=== PATIENT | female | born 1980 | race Caucasian/White ===

== ENCOUNTER 2017-07-01 13:35 | Emergency (ER) | payer OTHER, BC, SELFPAY | END 2017-07-01 15:54 | disposition home or self-care (01) | PROVIDERS: Emergency Provider Nurse Practitioner; Family Provider Internal Medicine Adolescent Medicine; Visit Provider Nurse Practitioner | DX: J06.9 Acute upper respiratory infection, unspecified (principal); Z91.040 Latex allergy status | CPT/HCPCS: 87804; 99201 ==

== ENCOUNTER → 2019-05-28 16:02 | Outpatient (CLI) | payer OTHER, BC, SELFPAY ==
[2019-05-28 16:49] LABS: Basophils # 0.1 K/mm3 (0-0.2); Basophils % 0.7 % (0.1-2.0); Eosinophils # 0.1 K/mm3 (0.0-0.4); Eosinophils % 1.1 % (0.1-12.0); Hematocrit 37.7 % (37.0-47.0); Hemoglobin 12.1 g/dL (12.2-16.2); Lymphocytes # 2.6 K/mm3 (0.7-4.5); Lymphocytes % 31.9 % (10-50); Mean Corpuscular HGB Conc 32.1 g/dL (31.8-35.4); Mean Corpuscular Hemoglobin 31.2 pg (27.0-31.2); Mean Corpuscular Volume 97.4 fl (81-99); Mean Platelet Volume 11.2 fl (7.4-10.4); Monocytes # 0.4 K/mm3 (0.1-1.0); Monocytes % 4.8 % (1.7-9.3); Neutrophils # 4.9 K/mm3 (1.8-7.8); Neutrophils % 61.6 % (37.0-80.0); Platelet Count 189 K/mm3 (142-424); Red Blood Count 3.87 M/mm3 (4.20-5.40); Red Cell Distribution Width 13.8 % (11.5-17.5)
[2019-05-28 18:24] LABS: Alanine Aminotransferase 11 U/L (12-78); Alkaline Phosphatase 54 U/L (46-116); Anion Gap 10.8 mEq/L (5-15); Aspartate Amino Transferase 11 U/L (15-37); Bilirubin,Total 0.5 mg/dL (0.2-1.0); Blood Urea Nitrogen 25 mg/dL (7-18); Calcium 8.9 mg/dL (8.5-10.1); Carbon Dioxide 29 mmol/L (21.0-32.0); Chloride 103 mmol/L (98-107); Creatinine,Serum 0.85 mg/dL (0.55-1.02); Estimated Glomerular Filt Rate 74 ml/min (>60); GFR (African American) 90 ML/MIN (>60); Glucose 79 mg/dL (74-106); Potassium 3.8 mmoL/L (3.5-5.1); Sodium 139 mmol/L (136-145); T4 (Thyroxine) 11.8 ug/dl (4.7-13.3); Thyroid Stimulating Hormone 0.84 uIU/ml (0.358-3.740); Triiodothryronine (T3) Uptake 34 % (31-39)
[2019-05-31 06:39] LABS: Vitamin B12 356 pg/mL (232-1245)
== END ==
PROVIDERS: Visit Provider Internal Medicine Adolescent Medicine
DX: R68.89 Other general symptoms and signs (principal); L65.9 Nonscarring hair loss, unspecified
CPT/HCPCS: 36415; 80053; 82607; 82652; 84436; 84443; 84479; 85025

== ENCOUNTER 2019-06-29 13:31 | Outpatient (RCR) | payer OTHER, BC, SELFPAY | END 2019-06-29 14:00 | disposition home or self-care (01) | LOC: OT 13:31 | PROVIDERS: Visit Provider Orthopaedic Surgery | DX: M65.4 Radial styloid tenosynovitis [de Quervain] (principal) | CPT/HCPCS: 97763 ==

== ENCOUNTER 2019-08-25 15:00 | Outpatient (RCR) | payer OTHER, BC, SELFPAY ==
--- NOTE | 2019-06-08 15:30 | HMH.PTOPWND ---
Rehab Outpt Wound Evaluation Rehab OP Wound Evaluation Start: 06/08/19 15:07 Freq: Status: Active Protocol: Document 06/08/19 15:24 PHOKADI (Rec: 06/08/19 15:30 PHORNE [id number]) Electronically Signed By Primo Jin, PT 06/08/19 15:24 Subjective/History History History Pt is 39 yowf who presents with c/o B LE edema x > 15 yrs with gradually worsening symptoms. She reports edema does not decrease with elevation and pain/discomfort is increased at night after prolonged dependent positionign and standing. She also reports increased tenderness in the anterior lower leg B. She has no edema at all in the feet B, also feels cuffing around the ankles. She has PMH of tonsilectomy and . Subjective Subjective Pain 3/10 most of the time. Lymphedema Eval Classification of Lymphedema Secondary Lymphedema Yes: Likely Lipidema Stemmer's sign Stemmer's Sign no Stage of Lymphedema Lymphedema stages Stage 0 (subjective c/o heaviness and aching) Skin Changes Dry Skin Yes Discoloration of Skin Yes Other Changes Yes Pain Scale Pain Scale (0-10) 3 Affected Extremities Areas Affected by Lymphedema/Edema Right Upper Extremity,Left Upper Extremity,Right Lower Extremity,Left Lower Extremity Manual Lymphatic Drainage Treatment Area MLD Treatment Area Right Upper Extremity,Left Upper Extremity,Right Lower Extremity,Left Lower Extremity Wound Problems/Impairments Impairments Problems/Impairmments Palpation Tenderness,Impaired Standing,Impaired Recreational Activities,Increased Edema, Subjective C/O Pain,Impaired Self Care/Self Management Prognosis Rehab Potential Good Clinical Impression Consistent with Diagnosis Yes Consistent with signs and symptoms c/w Lipidema Short Term Goals Number of Weeks 4 Decreased Palpation Tenderness Yes: to min Decrease Subjective C/O Pain Yes: 2/10 Patient to be Ind w/ [place] Yes Compression Garments Patient to Understand
--- NOTE | 2019-07-20 15:49 | HMH.RHREAS ---
Rehab Reassessment Rehab OP Re-assessment Start: 07/20/19 15:45 Freq: Status: Active Protocol: Document 07/20/19 15:46 LAWANDA (Rec: 07/20/19 15:49 LAWANDA [id number]) Electronically Signed By Primo Jin, PT 07/20/19 15:46 Rehab Re-assessment Subjective Subjective Pt reports less pain overall but B LE continue to feel heavy. Objective Objective Notes B Lower leg medially showing small nodules in the tissue with light palpation, but some less fibrotic nature of the edema in B LE. Assessment Progress Assessment Progressing as Expected Assessment Notes Pain is decreasing, edema remains in B LE. Patient goals met ST,2,3,[address] LT,2,3,4,5,6 Revised Goals none Plan Plan Continue per initial POC Frequency of Therapy 2 x/wk Duration of therapy 8 wks Time and Billing Re-Eval Time 15 Re-Eval Billing Units 1 PHYSICIAN CERTIFICATION: I certify the specified therapy services for [facility] are required, authorized, and reviewed every 30 days.
--- NOTE | 2019-08-25 15:28 | HMH.RHREAS ---
Rehab Reassessment Rehab OP Re-assessment Start: 07/20/19 15:45 Freq: Status: Active Protocol: Document 08/25/19 15:26 LAWANDA (Rec: 08/25/19 15:28 LAWANDA [id number]) Electronically Signed By Primo Jin, PT 08/25/19 15:26 Rehab Re-assessment Subjective Subjective Pt reports no obvious changes in size, but feel less sore and painful. Objective Objective Notes B Lower leg medially showing small nodules in the tissue with light palpation (grains of rice in size), but continuedcless fibrotic nature of the edema in B LE. Pain 2/ 10 now on average. Assessment Progress Assessment Progressing as Expected Assessment Notes Pt with much less pain in B LE now and following all HEP well. Patient goals met ST,2,3,4,5 Goals Not Met LT,2,3,4,5,6 Revised Goals none Plan Plan Continue per initial POC Frequency of Therapy 2 x/wk Duration of therapy 8 wks Time and Billing Re-Eval Time 15 Re-Eval Billing Units 1 PHYSICIAN CERTIFICATION: I certify the specified therapy services for [facility] are required, authorized, and reviewed every 30 days.
== END 2019-08-25 15:05 | disposition home or self-care (01) ==
LOC: PT 15:00
PROVIDERS: Visit Provider Internal Medicine Adolescent Medicine
DX: I89.0 Lymphedema, not elsewhere classified (principal)
CPT/HCPCS: 97140; 97162; 97164; 97760

== ENCOUNTER → 2019-08-26 14:38 | Outpatient (CLI) | payer OTHER, BC, SELFPAY ==
--- NOTE | 2019-08-26 14:38 | US_ITS ---
PROCEDURE: US EXTREMITY LT LIMITED CLINICAL INDICATION: palpable nodule on upper left leg and vulva COMPARISON: No exams were available for comparison FINDINGS: Images targeted to the palpable abnormality demonstrate a focal hypo echoic nodule with increased color Doppler blood flow in the immediate subcutaneous tissues in the labial region. This measures up to 7.2 x 3.3 x 4.2 millimeters. Sebaceous cyst is favored. Inflammatory or neoplastic focus would also be in the differential diagnosis. IMPRESSION: Solid hyperemic nodule correlates with the clinical abnormality. Dictated by: Meño Villagran 08/26/2019 15:24 Electronically signed by Meño Villagran in [place] 08/26/2019 15:24
== END ==
PROVIDERS: PCP Internal Medicine Adolescent Medicine; Visit Provider Nurse Practitioner Obstetrics & Gynecology
DX: N76.4 Abscess of vulva (principal)
CPT/HCPCS: 76882

== ENCOUNTER → 2019-09-22 12:13 | Outpatient (CLI) | payer OTHER, BC, SELFPAY ==
[2019-09-22 13:06] LABS: Alanine Aminotransferase 12 U/L (12-78); Albumin Level 4.6 g/dl (3.5-5.0); Albumin/Globulin Ratio 1.3 (1.1-1.8); Alkaline Phosphatase 57 U/L (38-126); Amylase 48 U/L (30-110); Anion Gap 13.1 mEq/L (5-15); Aspartate Amino Transferase 24 U/L (14-36); Bilirubin,Total 0.5 mg/dl (0.2-1.3); Blood Urea Nitrogen 15 mg/dl (7-17); Calcium 9.3 mg/dl (8.4-10.2); Carbon Dioxide 24 mmol/L (22.0-30.0); Chloride 102 mmol/L (98-107); Creatine Kinase 37 U/L (30-135); Estimated Glomerular Filt Rate 137 ml/min (>60); GFR (African American) 165 ML/MIN (>60); Globulin 3.6 g/dL (1.3-3.2); Glucose 94 mg/dl (74-100); Lipase 95 U/L (23-300); Potassium 4.1 mmoL/L (3.5-5.1); Sodium 135 mmol/L (136-145); Total Protein,Serum 8.2 g/dl (6.3-8.2)
[2019-09-22 13:17] LABS: CKMB Relative Index 0.8 U/L (0-4.0); Creatine Kinase MB 0.3 ng/ml (0.0-2.03)
[2019-09-22 13:19] LABS: Troponin I < 0.01 ng/ml (0.00-0.034)
[2019-09-22 13:30] LABS: Basophils % 0.2 % (0.1-2.0); Eosinophils % 0.3 % (0.1-12.0); Hematocrit 37.3 % (37.0-47.0); Hemoglobin 12.3 g/dL (12.2-16.2); Lymphocytes # 1.4 K/mm3 (0.7-4.5); Lymphocytes % 12.5 % (10-50); Mean Corpuscular Hemoglobin 31.9 pg (27.0-31.2); Mean Corpuscular Volume 96.7 fl (81-99); Mean Platelet Volume 10.6 fl (7.4-10.4); Monocytes # 0.4 K/mm3 (0.1-1.0); Monocytes % 3.6 % (1.7-9.3); Neutrophils % 83.4 % (37.0-80.0); Platelet Count 169 K/mm3 (142-424); Red Blood Count 3.85 M/mm3 (4.20-5.40); Red Cell Distribution Width 13.6 % (11.5-17.5); White Blood Count 10.8 K/mm3 (4.8-10.8)
== END ==
PROVIDERS: Visit Provider Internal Medicine Adolescent Medicine
DX: R00.2 Palpitations (principal); R10.13 Epigastric pain
CPT/HCPCS: 36415; 80053; 82150; 82550; 82553; 83690; 84484; 85025

== ENCOUNTER → 2019-10-04 15:32 | Outpatient (CLI) | payer OTHER, BC, SELFPAY ==
--- NOTE | 2019-10-04 | US_ITS ---
PROCEDURE: US BREAST LT COMPLETE CLINICAL INDICATION: Palpable abnormality left breast painful COMPARISON: mammogram 10/04/2019 FINDINGS: Sonographic images targeted to the palpable abnormality demonstrates a 1.6 x 1.9 x 0.84 centimeter thick walled septated cyst corresponding to the palpable and mammographic abnormality. A complicated cyst should be considered 1st. There are at least 3 separate lymph nodes in the left axilla largest measuring up to 1.8 centimeters with fatty hilum. IMPRESSION: BI-RADS category 3 probably benign finding. Six-month follow-up exam is recommended. Dictated by: Meño Villagran 10/04/2019 17:45 Electronically signed by Meño Villagran in [facility] 10/04/2019 17:45
--- NOTE | 2019-10-04 15:32 | MM_ITS ---
PROCEDURE: MM DIG MAMM BI DX W/CAD Digital Breast Tomosynthesis Included CLINICAL INDICATION: left breast nodule, breast tenderness COMPARISON: No exams were available for comparison TECHNIQUE: Standard CC and MLO images and 3D Tomosynthesis was obtained. R2 CAD reviewed. FINDINGS: The breasts are extremely dense. This decreases the sensitivity of mammography. Skin marker was placed to denote the area of palpable abnormality in the upper-outer quadrant of the left breast. There is approximately 1.6 x 2.1 centimeter nodule in the upper outer quadrant of the left breast correlating with the palpable abnormality. Sonography performed 10/04/2019 demonstrated a complicated cystic lesion. There is no other suspicious breast mass or clustered microcalcification to suggest malignancy. A 6 millimeter nodule in the prepectoral region of the left breast is likely a benign lymph node. Lymph nodes are seen projecting over the bilateral pectoral muscles. IMPRESSION: BI-RAD Category: 3 Probably Benign Finding Short Term Follow-up FOLLOW-UP: 6M 6Month Follow-up (A letter has been sent to the patient regarding results of the study.) Dictated by: Meño Villagran 10/04/2019 17:54 Electronically signed by Meño Villagran in [facility] 10/04/2019 17:54
== END ==
PROVIDERS: PCP Internal Medicine Adolescent Medicine; Visit Provider Nurse Practitioner Obstetrics & Gynecology
DX: N63.21 Unspecified lump in the left breast, upper outer quadrant (principal); N64.4 Mastodynia
CPT/HCPCS: 76641; 77062; 77066; G0279

== ENCOUNTER → 2019-12-15 15:02 | Outpatient (CLI) | payer OTHER, BC, SELFPAY ==
[2019-12-15 15:05] LABS: MANUAL DIFFERENTIAL MANUAL DIFFERENTIAL (MANUAL DIFF)
[2019-12-15 15:16] LABS: Basophils % 0.5 % (0.1-2.0); Eosinophils # 0.1 K/mm3 (0.0-0.4); Eosinophils % 1.4 % (0.1-12.0); Hematocrit 36.9 % (37.0-47.0); Hemoglobin 11.9 g/dL (12.2-16.2); Lymphocytes # 1.9 K/mm3 (0.7-4.5); Lymphocytes % 24.8 % (10-50); Mean Corpuscular HGB Conc 32.2 g/dL (31.8-35.4); Mean Corpuscular Hemoglobin 31.6 pg (27.0-31.2); Mean Corpuscular Volume 98.1 fl (81-99); Mean Platelet Volume 10.3 fl (7.4-10.4); Monocytes # 0.3 K/mm3 (0.1-1.0); Monocytes % 4.3 % (1.7-9.3); Neutrophils # 5.3 K/mm3 (1.8-7.8); Platelet Count 157 K/mm3 (142-424); Red Blood Count 3.76 M/mm3 (4.20-5.40); Red Cell Distribution Width 14.6 % (11.5-17.5); White Blood Count 7.7 K/mm3 (4.8-10.8)
[2019-12-15 15:34] LABS: Eosinophils % 1 % (0-3); Lymphocytes % 31 % (10-50); Monocytes % 2 % (2-9); Neutrophils % 66 % (42-76); Platelet Estimate Normal; RBC Morphology Normal; Total Cells Counted 100
[2019-12-15 15:38] LABS: Chloride 105 mmol/L (98-107); Potassium 3.9 mmoL/L (3.5-5.1); Sodium 139 mmol/L (136-145)
[2019-12-15 15:40] LABS: Blood Urea Nitrogen 18 mg/dl (7-17); Estimated Glomerular Filt Rate 111 ml/min (>60); GFR (African American) 134 ML/MIN (>60)
[2019-12-15 15:41] LABS: Alanine Aminotransferase 13 U/L (12-78); Albumin Level 4.2 g/dl (3.5-5.0); Albumin/Globulin Ratio 1.3 (1.1-1.8); Alkaline Phosphatase 55 U/L (38-126); Aspartate Amino Transferase 23 U/L (14-36); Bilirubin,Total 0.4 mg/dl (0.2-1.3); Calcium 9.1 mg/dl (8.4-10.2); Globulin 3.3 g/dL (1.3-3.2); Glucose 100 mg/dl (74-100); Total Protein,Serum 7.5 g/dl (6.3-8.2)
[2019-12-15 20:57] LABS: Anion Gap 12.9 mEq/L (5-15); Carbon Dioxide 25 mmol/L (22.0-30.0)
== END ==
PROVIDERS: Visit Provider Internal Medicine Adolescent Medicine
DX: R19.09 Other intra-abdominal and pelvic swelling, mass and lump (principal); I89.0 Lymphedema, not elsewhere classified
CPT/HCPCS: 36415; 80053; 85007; 85014; 85018; 85048; 85049

== ENCOUNTER → 2019-12-24 09:32 | Outpatient (CLI) | payer OTHER, BC, SELFPAY ==
--- NOTE | 2019-12-24 09:38 | CT_ITS ---
PROCEDURE: CT ABDOMEN PELVIS WO/W CON CLINICAL INDICATION: LT INQUINAL MASS,LYMPHEDEMA OF BOTH LOWER EXTREMITIES Painful left inguinal mass, possible swollen lymph node, history of lymphedema COMPARISON: ABDPELW/O CT ABD PELVIS W/O CONTRAST from 02/11/2014 US EXTREMITY LT LIMITED from 08/26/2019 US BREAST LT COMPLETE from 10/04/2019 TECHNIQUE: IV Contrast: 75ML OPTIRAY 350 Oral Contrast None Axial images obtained with sagittal and coronal reformats. All CT scans at the facility use one or more dose reduction, viz: automated exposure control, ma/kV adjustment per patient size (including targeted exams where dose is matched to indication, i.e. head), or iterative reconstruction technique. FINDINGS: LOWER THORAX: No acute finding ABDOMEN & PELVIS: The liver, spleen, adrenal glands, pancreas, and kidneys have an unremarkable appearance. No renal or ureteral calculi. No intestinal obstruction or free air. No evidence of appendicitis or diverticulitis. There is a 2.5 cm right ovarian cyst. There is heterogeneous lobular density along the anterior aspect of the lower uterine segment which could be due to a fibroid. Pelvic ultrasound may confirm. This area measures approximately 3 cm. A BB is placed in the area of palpable clinical concern located between the left labia and thigh. There is mild thickening of the subcutaneous soft tissues at this area.. There are few scattered small lymph nodes in the inguinal area on the left. No dominant adenopathy. No acute bony findings. IMPRESSION: 1. There is some mild subcutaneous soft tissue thickening along the lateral aspect of the left labia majora which may correspond to the area of palpable concern. This is of uncertain clinical significance. Correlation with direct visualization is suggested. No other abnormalities are evident at this region aside rim a few small lymph nodes more lateral to this area in the inguinal region. No abnormal fluid collection or muscular masses. 2. Suspect fibroid along the lower uterine segment with small right ovarian cyst. Ultrasound may confirm. 3. Otherwise negative Dictated by: Karel Mays MD 12/25/2019 07:05 Electronically signed by Karel Mays MD in [facility] 12/25/2019 07:05
== END ==
PROVIDERS: PCP Internal Medicine Adolescent Medicine; Visit Provider Internal Medicine Adolescent Medicine
DX: R19.09 Other intra-abdominal and pelvic swelling, mass and lump (principal); I89.0 Lymphedema, not elsewhere classified
CPT/HCPCS: 74178; Q9967

== ENCOUNTER → 2020-04-28 11:01 | Outpatient (CLI) | payer OTHER, BC, SELFPAY ==
[2020-04-29 15:23] LABS: Covid-19 Nasal PCR Sendout Lex Not Detected
== END ==
PROVIDERS: PCP Internal Medicine Adolescent Medicine; Visit Provider Internal Medicine Adolescent Medicine
DX: Z03.818 Encounter for observation for suspected exposure to other biological agents ruled out (principal)
CPT/HCPCS: U0004

== ENCOUNTER 2020-06-18 19:53 | Emergency (ER) | payer OTHER, BC, SELFPAY ==
[2020-06-18 19:59] VITALS: BP 133/74; PULSE 61; RESP 18; O2SAT 100; BMI 27.8
--- NOTE | 2020-06-18 20:04 | XR_ITS ---
PROCEDURE: XR CHEST 2V CLINICAL HISTORY: COUGH Cough and fever COMPARISON: No exams were available for comparison FINDINGS: The cardiomediastinal silhouette and pulmonary vascularity are within normal limits. The lungs are clear without infiltrates, suspicious nodules, or pleural effusions. There is a calcified granuloma in the right lung base. No acute bony findings. IMPRESSION: No acute findings. Dictated by: Karel Mays MD 06/19/2020 05:29 Karel Mays MD in [facility] 06/19/2020 05:29
--- NOTE | 2020-06-18 20:06 | HMH.EDUTC ---
[facility] [place]ression: Bronchitis, Pleurisy Disposition: Home, Self-Care Condition on Discharge: Good Instructions: Acute Bronchitis, DI for Pleurisy, Sore Throat Additional Instructions: ? Start antibiotic today. Be sure to complete entire prescription even if feeling better ? Monitor temp. Tylenol every 4 hours as needed and / or ibuprofen every 6 hours as needed ( As long as your primary care physician has told you that it ok to take both. For fever/aches/pains ER if no less than 101 despite Tylenol or Motrin ? Humidifier/vaporizer or hot steamy shower *Start steroid today. Helps with inflammation therefore, cough and wheezing. Follow directions on the package. Reviewed side effects. Patient reports taking them before. Follow up IMMEDIATELY for new or worsening of symptoms OR no noticeable improvement over the next 48-72 hours. 911 immediately for any life threatening symptoms such as chest pain or difficulty breathing You were tested for today for COVID19 Prescriptions: methylPREDNISolone [Medrol 4mg tab] 4 mg PO DIRECTED #21 tab Transmission Status: Pending to [facility] Azithromycin [Z-Damián 250mg Tab] 250 mg PO DIRECTED #6 tab Transmission Status: Pending to [facility] Referrals: Chin Guajardo MD [Primary Care Provider] - As needed (Follow up immediately if no improvement) Forms: Work/School Release Time of Disposition: 20:54 Medical Decision Making - Angel Inquiry Pt receiving controlled substance: No Angel was queried for this patient: No Vital Signs: 06/18/20 19:59 Pulse Rate [Radial] 61 Respiratory Rate 18 Blood Pressure [Right Arm] 133/74 Blood Pressure Mean [Right Arm] 93 Blood Pressure Source [Right Arm] Automatic Cuff Blood Pressure Position [Right Arm] Sitting 02 Sat by Pulse Oximetry 100 Oxygen Delivery Method Room Air - Lab Data Lab results reviewed: Yes: I reviewed the patient's lab results. Lab Results 06/18/20 20:06: Influenza Type A Ag Negative, Influenza Type B Ag Negative 06/18/20 20:06: Strep Scn Rapid Clinic Negative Orders (Tests/Meds): ED MEDICATIONS Discontinued Medications Generic Name Dose Route Start Last Admin Trade Name Freq PRN Reason Stop Dose Admin Azithromycin 500 mg 06/18/20 20:47 Azithromycin 250mg Tablet PO 06/18/20 20:48 ONCE ONE Protocol Prednisone 10 mg 06/18/20 20:47 Prednisone 20mg Tab PO 06/18/20 20:48 ONCE ONE ORDERS Category Date Time Status CXR 2 view (NOT portable) [XR chest 2V] Stat Exams 06/18/20 20:04 Taken Full Resp Panel w/COVID ([facility]) Routine Lab 06/18/20 20:05 Received Strep Screen Confirmation Stat Micro 06/18/20 20:06 Received - Radiology Data #1 Image(s): Chest Image Reviewed: Yes I reviewed the patient's radiology image ? bronchitis Medical Decision Narrative: Discussed with patient that we could transfer her to the ED for further evaluation and examination but she declined State that she is not having any chest pain, denies SOA and denies history of DVT States that she will try medication and if she gets worse or starts having chest pain she will return to the ED for further treatment and evaluation [facility] [place] - General Stated complaint: Sore Throat;Pain in chest when taking deep breaths Time Seen by Provider: 06/18/20 20:06 Mode of Arrival: Ambulatory Source of Information: Patient Limitations: No Limitations Description of Symptoms (Recalled from Triage Doc. by RN): sore throat, SOB, pain with inspiration HEENT Symptoms (Recalled from RN notes): Yes Resp Symptoms (Recalled from RN notes): Yes Skin Symptoms (Recalled from RN notes): No MS Symptoms (Recalled from RN notes): No Functional Status (Recalled from RN notes): wnl - History of Present Illness Provider Complaint: Patient states that she hasnt been feeling well today States that around 10am this morning she noticed she wasnt feeling well States that she was feeli
[2020-06-18 20:29] LABS: Adenovirus,PCR Not Detected (NotDetected); Bordetella Pertussis Not Detected (NotDetected); Chlamydophila Pneumoniae, PCR Not Detected (NotDetected); Coronavirus 19, PCR Not Detected (NotDetected); Coronavirus 229E Not Detected (NotDetected); Coronavirus NL63 Not Detected (NotDetected); Coronavirus OC43 Not Detected (NotDetected); Coronovirus HKU1,PCR Not Detected (NotDetected); Human Metapneumovirus Not Detected (NotDetected); Influenza A, PCR Not Detected (NotDetected); Influenza AH1, 2009 Not Detected (NotDetected); Influenza AH1, PCR Not Detected (NotDetected); Influenza AH3,PCR Not Detected (NotDetected); Influenza B, PCR Not Detected (NotDetected); Mycoplasma Pneumoniae, PCR Not Detected (NotDetected); Parainfluenza 1, PCR Not Detected (NotDetected); Parainfluenza 2, PCR Not Detected (NotDetected); Parainfluenza 3, PCR Not Detected (NotDetected); Parainfluenza 4, PCR Not Detected (NotDetected); Respiratory Syncytial Virus Not Detected (NotDetected); Rhinovirus/Enterovirus Not Detected (NotDetected)
[2020-06-18 20:44] LABS: UTC Influenza A Antigen Negative (Negative); UTC Strep Screen (Rapid) Negative (Negative)
[2020-06-18 20:45] LABS: UTC Influenza B Antigen Negative (Negative)
[2020-06-18 20:56] VITALS: BP 133/74; PULSE 61; RESP 18; TEMP 36.7; O2SAT 100
== END 2020-06-18 20:57 | disposition home or self-care (01) ==
PROVIDERS: Emergency Provider Nurse Practitioner; PCP Internal Medicine Adolescent Medicine
DX: Z20.828 Contact with and (suspected) exposure to other viral communicable diseases (principal); J20.9 Acute bronchitis, unspecified; R09.1 Pleurisy; Z91.040 Latex allergy status
CPT/HCPCS: 71046; 87581; 87633; 87798; 87804; 87880; 99202

== ENCOUNTER → 2020-06-20 16:42 | Outpatient (CLI) | payer OTHER, BC, SELFPAY ==
[2020-06-20 17:30] LABS: Adenovirus,PCR Not Detected (NotDetected); Bordetella Pertussis Not Detected (NotDetected); Chlamydophila Pneumoniae, PCR Not Detected (NotDetected); Coronavirus 19, PCR Not Detected (NotDetected); Coronavirus 229E Not Detected (NotDetected); Coronavirus NL63 Not Detected (NotDetected); Coronavirus OC43 Not Detected (NotDetected); Coronovirus HKU1,PCR Not Detected (NotDetected); Human Metapneumovirus Not Detected (NotDetected); Influenza A, PCR Not Detected (NotDetected); Influenza AH1, 2009 Not Detected (NotDetected); Influenza AH1, PCR Not Detected (NotDetected); Influenza AH3,PCR Not Detected (NotDetected); Influenza B, PCR Not Detected (NotDetected); Mycoplasma Pneumoniae, PCR Not Detected (NotDetected); Parainfluenza 1, PCR Not Detected (NotDetected); Parainfluenza 2, PCR Not Detected (NotDetected); Parainfluenza 3, PCR Not Detected (NotDetected); Parainfluenza 4, PCR Not Detected (NotDetected); Respiratory Syncytial Virus Not Detected (NotDetected); Rhinovirus/Enterovirus Not Detected (NotDetected)
== END ==
PROVIDERS: PCP Nurse Practitioner Family; Visit Provider Nurse Practitioner Family
DX: R50.9 Fever, unspecified (principal)
CPT/HCPCS: 87581; 87633; 87798

== ENCOUNTER 2020-07-29 12:28 | Emergency (ER) | payer OTHER, BC, SELFPAY ==
[2020-07-29] VITALS (7 sets, daily range): BP systolic 116–134; BP diastolic 47–92; PULSE 51–77; RESP 16; TEMP 36.9; O2SAT 100; BMI 27.4
--- NOTE | 2020-07-29 12:37 | CT_ITS ---
PROCEDURE: CT ABDOMEN PELVIS WO CON CLINICAL INDICATION: abd pain Lower abdominal pain COMPARISON: CT ABDPELW/O CT ABD PELVIS W/O CONTRAST from 02/11/[address] ABDOMEN PELVIS WO/W CON from 12/24/2019 TECHNIQUE: Axial images obtained with sagittal and coronal reformats. All CT scans at the facility use one or more dose reduction, viz: automated exposure control, ma/kV adjustment per patient size (including targeted exams where dose is matched to indication, i.e. head), or iterative reconstruction technique. FINDINGS: LOWER THORAX: No acute finding ABDOMEN & PELVIS: The liver,, spleen, adrenal glands, pancreas, and kidneys have an unremarkable appearance. No renal or ureteral calculi. No hydronephrosis. Subtle low density is present in the central aspect of the spleen nonspecific and not significantly changed There is a mild amount of retained colonic feces. No intestinal obstruction or free air. No evidence of appendicitis. No evidence of diverticulitis. There is a 2.3 cm right ovarian cyst. No pelvic mass or abnormal fluid collection. Multiple unopacified bowel loops in the abdomen or pelvis which could obscure or mimic pathology. If symptoms persist, consider repeat exam with IV and oral contrast.. No acute bony findings. IMPRESSION: No acute finding Dictated by: Karel Mays MD 07/29/2020 13:59 Karel Mays MD in [place] 07/29/2020 13:59
[2020-07-29 12:41] LABS: Microscopic, Urine URINE MICROSCOPIC (MICROSCOPIC)
[2020-07-29 12:43] LABS: Appearance,Urine CLEAR (Clear); Bilirubin,Urine Negative (Negative); Blood, Urine 3+ (Negative); Color,Urine YELLOW (Yellow); Glucose,Urine (UA) Negative (Negative); Ketones,Urine Negative (Negative); Leukocyte Esterase,Urine Negative (Negative); Nitrate,Urine Negative (Negative); PH,Urine 5.5 (5.0-8.5); Protein,Urine Negative (Negative); Specific Gravity, Urine >= 1.030 (1.005-1.030); Urobilinogen,Urine 0.2 EU/dl (0.2)
[2020-07-29 12:50] LABS: Urine Pregnancy, HCG Qual. Negative (Negative)
[2020-07-29 12:51] LABS: RBC,Urine TNTC #/hpf (0-3)
[2020-07-29 13:01] LABS: Basophils % 0.6 % (0.1-2.0); Eosinophils # 0.1 K/mm3 (0.0-0.4); Eosinophils % 1.3 % (0.1-12.0); Hematocrit 40.4 % (37.0-47.0); Hemoglobin 13.1 g/dL (12.2-16.2); Lymphocytes # 1.8 K/mm3 (0.7-4.5); Lymphocytes % 27.2 % (10-50); Mean Corpuscular HGB Conc 32.3 g/dL (31.8-35.4); Mean Platelet Volume 10.9 fl (7.4-10.4); Monocytes # 0.3 K/mm3 (0.1-1.0); Monocytes % 4.8 % (1.7-9.3); Neutrophils # 4.3 K/mm3 (1.8-7.8); Platelet Count 180 K/mm3 (142-424); Red Blood Count 4.21 M/mm3 (4.20-5.40); Red Cell Distribution Width 14.4 % (11.5-17.5); White Blood Count 6.4 K/mm3 (4.8-10.8)
--- NOTE | 2020-07-29 13:03 | HMH.EDGENADL ---
ED Disposition Clinical Impression: Abdominal pain Qualifiers: Abdominal location: periumbilical Qualified Code(s): R10.33 - Periumbilical pain Disposition: Home, Self-Care Condition on Discharge: Good Instructions: DI for Acute Abdominal Pain Additional Instructions: Additional instructions for ABDOMINAL PAIN: See your physician as soon as possible for further evaluation. Return immediately if worsening abdominal pain, vomiting, shortness of breath, fever, vomiting of blood or abdominal distention. Referrals: Chin Guajardo MD [Primary Care Provider] - - Critical Care Critical Care Time: No Attestation: On 07/29/20, the high probability of a clinically significant, sudden or life threatening deterioration of the following system(s) required my full and direct attention, intervention and personal management. The time I documented below is in addition to time spent performing reported procedures but includes the following listed in this critical care notation. Medical Decision Making - Angel Inquiry Pt receiving controlled substance: No Vital Signs: 07/29/20 12:33 07/29/20 13:07 07/29/20 13:38 Temperature 98.5 F Temperature Source Oral Pulse Rate [Right Radial] 77 65 57 L Respiratory Rate 16 Blood Pressure [Right Arm] 134/60 116/47 L 126/69 Blood Pressure Mean [Right Arm] 84 70 88 Blood Pressure Source [Right Arm] Automatic Cuff Automatic Cuff Automatic Cuff Blood Pressure Position [Right Arm] Sitting Sitting Sitting 02 Sat by Pulse Oximetry 100 100 100 Oxygen Delivery Method Room Air Room Air Room Air 07/29/20 14:14 07/29/20 14:31 07/29/20 15:08 Temperature Temperature Source Pulse Rate [Right Radial] 60 55 L 51 L Respiratory Rate Blood Pressure [Right Arm] 119/74 119/92 H 129/72 Blood Pressure Mean [Right Arm] 89 101 91 Blood Pressure Source [Right Arm] Automatic Cuff Automatic Cuff Automatic Cuff Blood Pressure Position [Right Arm] Sitting Sitting Sitting 02 Sat by Pulse Oximetry 100 100 100 Oxygen Delivery Method Room Air Room Air Room Air - Lab Data Lab Results 07/29/20 12:35: Urine Color Yellow, Urine Appearance Clear, Urine pH 5.5, Ur Specific [place] >= 1.030, Urine Protein Negative, Urine Glucose (UA) Negative, Urine Ketones Negative, Urine Blood 3+, Urine Nitrate Negative, Urine Bilirubin Negative, Urine Urobilinogen 0.2, Ur Leukocyte Esterase Negative, Urine RBC Tntc, Urine WBC None, Ur Squamous Epith Cells 10-20, Urine Bacteria None 07/29/20 12:36: Urine HCG, Qual Negative 07/29/20 12:45: WBC 6.4, RBC 4.21, Hgb 13.1, Hct 40.4, MCV 96.0, MCH 31.0, MCHC 32.3, RDW 14.4, Plt Count 180, MPV 10.9 H, Neut % (Auto) 66.0, Lymph % (Auto) 27.2, [place] % (Auto) 4.8, Eos % (Auto) 1.3, Baso % (Auto) 0.6, Neut # (Auto) 4.3, Lymph # (Auto) 1.8, [place] # (Auto) 0.3, Eos # (Auto) 0.1, Baso # (Auto) 0.0 07/29/20 12:45: Sodium 139, Potassium 3.8, Chloride 103, Carbon Dioxide 27, Anion Gap 12.8, BUN 16, Creatinine 0.60, Estimated Creat Clear 141, Estimated GFR 110, Est GFR ( Amer) 133, Glucose 96, Calcium 9.4, Total Bilirubin 0.7, AST 30, ALT 13, Alkaline Phosphatase 66, Total Protein 8.9 H, Albumin 4.7, Globulin 4.2 H, Albumin/Globulin Ratio 1.1, Amylase 41, Lipase 84 Result diagrams: 07/29/20 12:45 07/29/20 12:45 General Adult HPI - General Chief complaint: Abdominal Pain Stated complaint: stomach pain Time Seen by Provider: 07/29/20 13:04 Mode of Arrival: Ambulatory Limitations: No Limitations Description of Symptoms (Recalled from ER Triage Doc. by RN): Pt reports sharp abd pain across the middle of her abd in umbilical area. Pt reports pain began yesterday. Pt denies n/v/d or fever. - History of Present Illness HPI narrative: Complains of abdominal pain, onset last night before bed, constant in nature. Pain woke her up at about 4 AM. Describes it as an ache all the way across her abdomen at the level of the umbilicus. It is not lateralized to either side. Denies radi
[2020-07-29 13:05] LABS: Chloride 103 mmol/L (98-107); Potassium 3.8 mmoL/L (3.5-5.1); Sodium 139 mmol/L (136-145)
[2020-07-29 13:08] LABS: Alanine Aminotransferase 13 U/L (12-78); Alkaline Phosphatase 66 U/L (38-126); Amylase 41 U/L (30-110); Anion Gap 12.8 mEq/L (5-15); Aspartate Amino Transferase 30 U/L (14-36); Bilirubin,Total 0.7 mg/dl (0.2-1.3); Blood Urea Nitrogen 16 mg/dl (7-17); Calcium 9.4 mg/dl (8.4-10.2); Carbon Dioxide 27 mmol/L (22.0-30.0); Creatinine Clearance Estimated 141 mL/min (50-200); Estimated Glomerular Filt Rate 110 ml/min (>60); GFR (African American) 133 ML/MIN (>60); Glucose 96 mg/dl (74-100); Lipase 84 U/L (23-300)
[2020-07-29 13:09] LABS: Albumin Level 4.7 g/dl (3.5-5.0); Albumin/Globulin Ratio 1.1 (1.1-1.8); Globulin 4.2 g/dL (1.3-3.2); Total Protein,Serum 8.9 g/dl (6.3-8.2)
== END 2020-07-29 15:50 | disposition home or self-care (01) ==
PROVIDERS: Emergency Provider Emergency Medicine; PCP Internal Medicine Adolescent Medicine
DX: R10.33 Periumbilical pain (principal); Z91.040 Latex allergy status
CPT/HCPCS: 74176; 80053; 81001; 81025; 82150; 83690; 85025; 99284

== ENCOUNTER 2020-08-08 19:25 | Emergency (ER) | payer OTHER, BC, SELFPAY ==
[2020-08-08 19:30] VITALS: BP 148/75; PULSE 75; RESP 18; TEMP 36.7; O2SAT 100; BMI 27.6
[2020-08-08 20:00] VITALS: BP 148/75; PULSE 75; RESP 18; TEMP 36.7; O2SAT 100
--- NOTE | 2020-08-08 20:19 | HMH.EDUTC ---
[facility] [place] Clinical Impression: Exposure to COVID-19 virus, Sore throat (viral) Disposition: Home, Self-Care Condition on Discharge: Good Instructions: Sore Throat, DI for COVID-19 (Suspected or Confirmed ), Coronavirus Disease 2019, Preventing the Spread of Coronavirus Discharge Instructions Additional Instructions: *Monitor Temp, Over the counter Motrin or Tylenol as directed/as needed Tylenol every 4 hours and Motrin every 6 hours (as long as your family doctor has told you that you can take it) for fever or pain. and straight to ER if unable to lower temp less than 101.0 after medication given *Warm salt water gargles may help to soothe the throat *Throat Lozenges *Warm fluids like tea with honey may help to soothe the throat *Sleep elevated *Humidifier/Vaporizer Your throat swab was sent for culture. Those results are typically sent to your primary care. Be sure to follow up in 2-3 days with your family doctor/primary care physician if no improvement so they can review those result and treat if necessary. If you don?t have a primary care doctor, I recommend you get one but in the mean time, you will have to return to a walk in clinic Follow up IMMEDIATELY for new or worsening symptoms or no Noticeable improvement over the next 48-72 hours. 911 for difficulty breathing or swallowing You were tested for today for COVID19 your test result should be back in the next 24-48 hours, you may call to the [facility] to see if your test results are back in the next 48 hours [phone] [facility] hours are 9am-9pm You was given a handout with instructions for Self Quarantine and Self isolation for while you wait on test results and what to do if they are positive If you are positive the Health Dept will be contacting you also Referrals: Chin Guajardo MD [Primary Care Provider] - As needed Forms: Work/School Release Time of Disposition: 20:34 Medical Decision Making - Angel Inquiry Pt receiving controlled substance: No Angel was queried for this patient: No Vital Signs: 08/08/20 19:30 08/08/20 20:00 Temperature 98.1 F 98.1 F Temperature Source Temporal Artery Scan Pulse Rate 75 Pulse Rate [Right Brachial] 75 Respiratory Rate 18 18 Blood Pressure 148/75 H Blood Pressure [Right Arm] 148/75 H Blood Pressure Mean [Right Arm] 99 Blood Pressure Source [Right Arm] Automatic Cuff Blood Pressure Position [Right Arm] Sitting 02 Sat by Pulse Oximetry 100 Oxygen Delivery Method Room Air - Lab Data Lab results reviewed: Yes: I reviewed the patient's lab results. Lab Results 08/08/20 20:27: Strep Scn Rapid Clinic Negative Orders (Tests/Meds): ORDERS Category Date Time Status Covid-19 Nasal PCR ([facility]) Routine Lab 08/08/20 19:58 Received Strep Screen Confirmation Stat Micro 08/08/20 20:27 Received [facility] [place] - General Stated complaint: covid test sore throat Time Seen by Provider: 08/08/20 20:26 Mode of Arrival: Ambulatory Source of Information: Patient Limitations: No Limitations Description of Symptoms (Recalled from Triage Doc. by RN): COVID TEST D/T EXPOSURE. C/O SORE THROAT HEENT Symptoms (Recalled from RN notes): Yes Resp Symptoms (Recalled from RN notes): No Skin Symptoms (Recalled from RN notes): No MS Symptoms (Recalled from RN notes): No Functional Status (Recalled from RN notes): WNL - History of Present Illness Provider Complaint: Patient states that she has been around her sons girlfriend that recently tested positive for COVID States that she has been having sore throat all day and was worried so she came in to get tested - Related Data Previous Rx's Medication Instructions Recorded cephalexin 500 mg capsule 500 mg PO BID 7 Days #14 cap 08/13/19 Azithromycin [Z-Damián 250mg Tab] 250 mg PO DIRECTED #6 tab 06/18/20 methylPREDNISolone [Medrol 4mg 4 mg PO DIRECTED #21 tab 06/18/20 tab] Allergies Allergy/AdvReac Type Severity Reaction Status Date / Time latex [LAT
[2020-08-08 20:33] LABS: UTC Strep Screen (Rapid) Negative (Negative)
== END 2020-08-08 20:40 | disposition home or self-care (01) ==
PROVIDERS: Emergency Provider Nurse Practitioner; PCP Internal Medicine Adolescent Medicine
DX: Z20.822 Contact with and (suspected) exposure to COVID-19 (principal); J02.9 Acute pharyngitis, unspecified; Z91.040 Latex allergy status
CPT/HCPCS: 87880; 99202; G0463; U0003

== ENCOUNTER → 2020-09-05 14:10 | Outpatient (POV) | payer OTHER, BC, SELFPAY | PROVIDERS: Visit Provider Dermatology | DX: Z00.00 Encounter for general adult medical examination without abnormal findings (principal) ==

== ENCOUNTER 2020-09-21 15:00 | Outpatient (RCR) | payer OTHER, BC, SELFPAY ==
--- NOTE | 2020-08-30 15:15 | HMH.PTOPWND ---
Rehab Outpt Wound Evaluation Rehab OP Wound Evaluation Start: 08/30/20 15:08 Freq: Status: Active Protocol: Document 08/30/20 15:08 LAWANDA (Rec: 08/30/20 15:15 PHOKADI [id number]) Electronically Signed By Primo Jin, PT 08/30/20 15:08 Subjective/History History History Pt is 40 yowf who presents with increased edema and feeling of tightness in B LE and UE. She also reports return of increased Pain in B LE and tenderness to palpation throughout B UE and LE. She states, I have really noticed it more in my arm when I bed my elbow, and it feels like it became tight overnight. She is well known to our clinic with previous successful treatment for Lipidema. She has no other significant PMH. Subjective Subjective Pain is often much worse at night which disrupts her sleep , 6/10 at worst. Lymphedema Eval Classification of Lymphedema Secondary Lymphedema Yes Other Lymphedema Cause Yes: Lipidema Stemmer's sign Stemmer's Sign no Stage of Lymphedema Lymphedema stages Stage II (Pitting edema, increased fibrosis w/ decreased pitting) Skin Changes Dry Skin Yes Other Changes Yes Pain Scale Pain Scale (0-10) 6 Affected Extremities Areas Affected by Lymphedema/Edema Right Upper Extremity,Left Upper Extremity,Right Lower Extremity,Left Lower Extremity Manual Lymphatic Drainage Treatment Area MLD Treatment Area Right Upper Extremity,Left Upper Extremity,Abdomen,Right Lower Extremity,Left Lower Extremity Wound Problems/Impairments Impairments Problems/Impairmments Palpation Tenderness,Impaired Dressing,Impaired Household Care,Impaired Recreational Activities,Increased Edema, Lymphedema Present,Subjective C/O Pain,Impaired Self Care/ Self Management Prognosis Rehab Potential Good Clinical Impression Consistent with Diagnosis Yes Short Term Goals Number of Weeks 4 Decreased Palpati
--- NOTE | 2020-09-19 16:28 | HMH.RHREAS ---
Rehab Reassessment Rehab OP Re-assessment Start: 09/19/20 16:22 Freq: Status: Active Protocol: Document 09/19/20 16:23 LAWANDA (Rec: 09/19/20 16:28 LAWANDA [id number]) Electronically Signed By Primo Jin, PT 09/19/20 16:23 Rehab Re-assessment Subjective Subjective Pt reports pain is about the same, 4/10' and I just feel tight sometimes. Objective Objective Notes No pitting edema noted, but some fibrotic edema in the lower legs B, worse medially. Minimally palpation tenderness . Assessment Progress Assessment Progressing as Expected Assessment Notes Pt with no decrease in pain and fluctuations in fibrotic edema. Overall improving tissue quality. Patient goals met none Goals Not Met ST,2,3,4,5,6 LT,2,3, 4,5,6 Revised Goals none Plan Plan Continue per initial POC. Frequency of Therapy 2 x/wk Duration of therapy 8 wks Time and Billing Re-Eval Time 15 Re-Eval Billing Units 1 PHYSICIAN CERTIFICATION: I certify the specified therapy services for [facility] are required, authorized, and reviewed every 30 days.
== END 2020-09-21 15:05 | disposition home or self-care (01) ==
LOC: PT 15:00
PROVIDERS: PCP Internal Medicine Adolescent Medicine; Visit Provider Internal Medicine Adolescent Medicine
DX: I89.0 Lymphedema, not elsewhere classified (principal)
CPT/HCPCS: 97140; 97162; 97164

== ENCOUNTER → 2020-09-26 08:36 | Outpatient (POV) | payer OTHER, BC, SELFPAY | PROVIDERS: Visit Provider Dermatology | DX: Z00.00 Encounter for general adult medical examination without abnormal findings (principal) ==

== ENCOUNTER → 2020-11-28 14:40 | Outpatient (POV) | payer OTHER, BC, SELFPAY | PROVIDERS: Visit Provider Dermatology | DX: Z00.00 Encounter for general adult medical examination without abnormal findings (principal) ==

== ENCOUNTER → 2020-11-29 14:56 | Outpatient (CLI) | payer OTHER, BC, SELFPAY ==
--- NOTE | 2020-11-29 15:01 | US_ITS ---
PROCEDURE: US TRANSVAGINAL CLINICAL INDICATION: Irregular bleeding COMPARISON: No exams were available for comparison FINDINGS: The uterus is retroverted. Endometrium is thickened at 2 cm. No obvious uterine mass UTERUS: 8cm x 6cmx 6cm with a combined endometrial thickness of 20.5mm LEFT OVARY: 3cmxx1.6cm with a volume of . RIGHT OVARY: [id number] with a volume of 12.1ml. There are bilateral ovarian follicles some of which contain some low level internal echoes. There is a 2 cm simple appearing right ovarian cyst. No cul-de-sac fluid. IMPRESSION: 1. Retroverted uterus with thickened endometrium at 2 cm. 2. Small bilateral ovarian follicles with a 2 cm simple appearing right ovarian cyst. Dictated by: Karel Mays MD 11/29/2020 17:17 Karel Mays MD in [place] 11/29/2020 17:17
== END ==
PROVIDERS: PCP Internal Medicine Adolescent Medicine; Visit Provider Nurse Practitioner Obstetrics & Gynecology
DX: N92.6 Irregular menstruation, unspecified (principal)
CPT/HCPCS: 76830

== ENCOUNTER 2021-02-13 20:11 | Emergency (ER) | payer OTHER, BC, SELFPAY ==
[2021-02-13 21:00] VITALS: BP 124/83; PULSE 81; RESP 20; TEMP 36.7; O2SAT 99; BMI 29.7
[2021-02-13 21:19] LABS: Apearance,Urine Cloudy (Clear); Color,Urine Yellow (Yellow); PH,Urine 6.5 (5.0-8.5)
[2021-02-13 21:20] LABS: Bilirubin,Urine Negative (Negative); Blood, Urine 3+ (Negative); Glucose,Urine (UA) Negative (Negative); Ketones,Urine 15 (Negative); Protein,Urine 1+ (Negative); Specific Gravity, Urine 1.015 (1.005-1.030); UTC Leukocyte Esterase,Urine 2+ (Negative); UTC Nitrate,Urine Positive (Negative); Urobilinogen,Urine 0.2 EU/dl (0.2)
--- NOTE | 2021-02-13 21:27 | HMH.EDUTC ---
[facility] [place] Disposition Clinical Impression: UTI (urinary tract infection) Qualifiers: Urinary tract infection type: site unspecified Hematuria presence: with hematuria Qualified Code(s): N39.0 - Urinary tract infection, site not specified Disposition: Home, Self-Care Condition on Discharge: Good Instructions: Urinary Tract Infection, DI for Urinary Tract Infection (UTI) Additional Instructions: Drink plenty of fluids. Take tylenol or ibuprofen for pain or fever. Take the medications as directed. Follow up with your regular doctor. GO TO THE ER FOR ANY WORSENING SYMPTOMS The pyridium will make your urine turn orange, this is an expected side effect. It will stain your clothes if it comes into contact with them. Prescriptions: Ondansetron [Zofran 4mg ODT] 4 mg PO Q8HP PRN #20 tab.rapdis PRN Reason: Nausea Transmission Status: Received by [facility] Ciprofloxacin HCl 500 mg PO BID 7 Days #14 tab Transmission Status: Received by [email or web address] Fluconazole [Diflucan 150mg tab] 150 mg PO ONCE #1 tab Transmission Status: Received by [email or web address] Phenazopyridine HCl [Pyridium 200mg Tablet] 200 pow PO TID #6 tab Transmission Status: Received by [facility] Referrals: Chin Guajardo MD [Primary Care Provider] - Forms: Work/School Release Time of Disposition: 21:36 Medical Decision Making - Medical Records Medical records reviewed: No: I reviewed the patient's medical records. - Angel Inquiry Pt receiving controlled substance: No Vital Signs: 02/13/21 21:00 02/13/21 21:38 Temperature 98.1 F 98.1 F Temperature Source Oral Pulse Rate 81 Pulse Rate [Left Brachial] 81 Respiratory Rate 20 20 Blood Pressure 124/83 Blood Pressure [Left Arm] 124/83 Blood Pressure Mean [Left Arm] 96 Blood Pressure Source [Left Arm] Automatic Cuff Blood Pressure Position [Left Arm] Sitting 02 Sat by Pulse Oximetry 99 Oxygen Delivery Method Room Air - Lab Data Lab results reviewed: Yes: I reviewed the patient's lab results. Lab Results 02/13/21 21:18: Urine Color Yellow, Urine Appearance Cloudy, Urine pH 6.5, Ur Specific [place] 1.015, Urine Protein 1+, Urine Glucose (UA) Negative, Urine Ketones 15, Urine Blood 3+, Urine Nitrate Positive A, Urine Bilirubin Negative, Urine Urobilinogen 0.2, Ur Leukocyte Esterase 2+ A Orders (Tests/Meds): ED MEDICATIONS Discontinued Medications Generic Name Dose Route Start Last Admin Trade Name Lidia PRN Reason Stop Dose Admin Levofloxacin 500 mg 02/13/21 21:34 02/13/21 21:38 Levofloxacin 500mg Tab PO 02/13/21 21:35 Not Given ONCE ONE ORDERS Category Date Time Status Urine Culture Stat Micro 02/13/21 21:05 Received [facility] HPI - General Stated complaint: possible uti Time Seen by Provider: 02/13/21 21:27 Mode of Arrival: Ambulatory Source of Information: Patient Limitations: No Limitations Description of Symptoms (Recalled from Triage Doc. by RN): PATIENT C/O URINARY FREQUENCY SINCE FRIDAY AND POSSIBLE BLOOD IN URINE HEENT Symptoms (Recalled from RN notes): No Resp Symptoms (Recalled from RN notes): No Skin Symptoms (Recalled from RN notes): No MS Symptoms (Recalled from RN notes): No Functional Status (Recalled from RN notes): WNL - History of Present Illness Provider Complaint: She c/o dysuria, frequency, low back pain and feeling bad for the past 2 days. She denies fever. - Related Data Previous Rx's Medication Instructions Recorded Ciprofloxacin HCl 500 mg PO BID 7 Days #14 tab 02/13/21 Fluconazole [Diflucan 150mg tab] 150 mg PO ONCE #1 tab 02/13/21 Ondansetron [Zofran 4mg ODT] 4 mg PO Q8HP PRN #20 tab.rapdis 02/13/21 Phenazopyridine HCl [Pyridium 200 pow PO TID #6 tab 02/13/21 200mg Tablet] Allergies Allergy/AdvReac Type Severity Reaction Status Date / Time latex [LATEX] Allergy Unknown Verified 08/16/19 14:45 - Worker's Comp Is this a Worker's Co
[2021-02-13 21:38] VITALS: BP 124/83; PULSE 81; RESP 20; TEMP 36.7; O2SAT 99
== END 2021-02-13 21:45 | disposition home or self-care (01) ==
PROVIDERS: Emergency Provider Nurse Practitioner Family; PCP Internal Medicine Adolescent Medicine
DX: N30.00 Acute cystitis without hematuria (principal); Z91.040 Latex allergy status
CPT/HCPCS: 81003; 87086; 87088; 87186; 99202; G0463

== ENCOUNTER → 2021-03-23 16:02 | Outpatient (CLI) | payer OTHER, BC, SELFPAY | PROVIDERS: Visit Provider Urology | DX: N39.0 Urinary tract infection, site not specified (principal); B96.20 Unspecified Escherichia coli [E. coli] as the cause of diseases classified elsewhere | CPT/HCPCS: 87086; 87088; 87186 ==

== ENCOUNTER → 2021-04-25 15:14 | Outpatient (CLI) | payer OTHER, BC, SELFPAY ==
--- NOTE | 2021-04-25 15:16 | MM_ITS ---
PROCEDURE: MM DIG MAMM BI DX W/CAD Digital Breast Tomosynthesis Included CLINICAL INDICATION: Follow-up abnormal mammogram. Six-month follow-up suggested on previous mammogram. This is a 19 follow-up.. COMPARISON: MG BC-MAMM DIAG BILAT DIG PNL from 10/17/2015 MG MM DIG MAMM BI DX W/CAD from 10/04/2019 US US BREAST LT COMPLETE from 10/04/2019 TECHNIQUE: Standard CC and MLO images and 3D Tomosynthesis was obtained. R2 CAD reviewed. FINDINGS: The breasts are extremely dense which lowers the sensitivity of mammography. No malignant appearing mass or malignant-appearing microcalcification. Previously there was a nodule in the upper outer left breast not readily apparent on today's exam. Ultrasound was not performed. No suspicious appearing mass, malignant-appearing microcalcification, architectural distortion, or skin thickening. IMPRESSION: No evidence of malignancy. If there are any palpable nodules it is recommended that the patient return for a breast ultrasound as a previous ultrasound demonstrated a complicated cyst in the upper outer left breast however that nodule appears to have resolved on the mammogram however the mammogram is less sensitive due to the extreme density of the breast. BI-RAD Category: 1 Negative FOLLOW-UP: 1 YR 1 Year Follow-up Also suggest breast ultrasound if there are any palpable nodules in either breast. (A letter has been sent to the patient regarding results of the study.) Dictated by: Karel Mays MD 04/27/2021 18:17 Karel Mays MD in [place] 04/27/2021 18:17
== END ==
PROVIDERS: PCP Internal Medicine Adolescent Medicine; Visit Provider Nurse Practitioner Women's Health
DX: Z12.31 Encounter for screening mammogram for malignant neoplasm of breast (principal)
CPT/HCPCS: 77062; 77066; G0279

== ENCOUNTER 2021-05-12 09:53 | Emergency (ER) | payer OTHER, BC, SELFPAY ==
[2021-05-12 10:12] VITALS: BP 151/105; PULSE 86; RESP 18; TEMP 36.8; O2SAT 98; BMI 26.6
[2021-05-12 10:19] LABS: UTC Strep Screen (Rapid) Positive (Negative)
[2021-05-12 10:36] VITALS: BP 151/105; PULSE 86; RESP 18; TEMP 36.8
--- NOTE | 2021-05-12 10:38 | HMH.EDUTC ---
[facility] [place] Disposition Clinical Impression: Strep throat Disposition: Home, Self-Care Condition on Discharge: Good Instructions: Strep Throat, DI for Strep Throat Additional Instructions: Drink plenty of fluids. Take tylenol or ibuprofen for pain or fever. Take the medications as directed. Follow up with your regular doctor. GO TO THE ER FOR ANY WORSENING SYMPTOMS Throw your tooth brush away and get a new one. Prescriptions: Ondansetron [Zofran 4mg ODT] 4 mg PO Q8HP PRN #12 tab PRN Reason: Nausea Transmission Status: Re[facility] by [facility] Amoxicillin [Amoxicillin 500mg Tab] 500 mg PO TID 10 Days #30 tab Transmission Status: Received by [facility] predniSONE [Deltasone 10mg tablet] 10 mg PO BID 3 Days #6 tab Transmission Status: Received by [facility] Referrals: Chin Guajardo MD [Primary Care Provider] - Forms: Work/School Release Time of Disposition: 10:41 Medical Decision Making - Medical Records Medical records reviewed: No: I reviewed the patient's medical records. - Angel Inquiry Pt receiving controlled substance: No Vital Signs: 05/12/21 10:12 05/12/21 10:36 Temperature 98.3 F 98.3 F Temperature Source Oral Pulse Rate 86 Pulse Rate [Left] 86 Respiratory Rate 18 18 Blood Pressure 151/105 H Blood Pressure [Right Arm] 151/105 H Blood Pressure Mean [Right Arm] 120 02 Sat by Pulse Oximetry 98 - Lab Data Lab results reviewed: Yes: I reviewed the patient's lab results. Lab Results 05/12/21 10:18: Strep Scn Rapid Clinic Positive A [facility] [place] HPI - General Stated complaint: sore throat,runny nose Time Seen by Provider: 05/12/21 10:38 Mode of Arrival: Ambulatory Source of Information: Patient Limitations: No Limitations Description of Symptoms (Recalled from Triage Doc. by RN): pt c/o sore throat, cough and runny nose. HEENT Symptoms (Recalled from RN notes): Yes (sore throat and runny nose) Resp Symptoms (Recalled from RN notes): Yes (cough) Skin Symptoms (Recalled from RN notes): No MS Symptoms (Recalled from RN notes): No Functional Status (Recalled from RN notes): na - History of Present Illness Provider Complaint: She states that since yesterday morning, she has had a scratchy sore throat, runny nose and she has chilled and felt bad. - Related Data Previous Rx's Medication Instructions Recorded Ciprofloxacin HCl 500 mg PO BID 7 Days #14 tab 02/13/21 Fluconazole [Diflucan 150mg tab] 150 mg PO ONCE #1 tab 02/13/21 Ondansetron [Zofran 4mg ODT] 4 mg PO Q8HP PRN #20 tab.rapdis 02/13/21 Phenazopyridine HCl [Pyridium 200 pow PO TID #6 tab 02/13/21 200mg Tablet] Sulfamethoxazole/Trimethoprim 1 each PO BID 7 Days #14 tab 02/18/21 [Bactrim DS tablet] Amoxicillin [Amoxicillin 500mg Tab] 500 mg PO TID 10 Days #30 tab 05/12/21 Ondansetron [Zofran 4mg ODT] 4 mg PO Q8HP PRN #12 tab 05/12/21 predniSONE [Deltasone 10mg tablet] 10 mg PO BID 3 Days #6 tab 05/12/21 Allergies Allergy/AdvReac Type Severity Reaction Status Date / Time latex [LATEX] Allergy Unknown Verified 03/23/21 15:17 - Worker's Comp Is this a Worker's Comp case?: No [facility] History - Hepatitis A Screen Drug use history?: No High risk sexual behaviors?: No History of sexually transmitted infection?: No Currently employed?: No Childcare worker?: No Do you have indoor plumbing?: Yes Do you have electricity?: Yes Attestation statement:: This patient has been screened for Hepatitis A risk factors. I have reviewed the patient's past medical history: Yes Medical History: Reports:: Urinary Tract Infection Other Medical History: Reports: Other Comment: Lymphadema Laterality Cases: Bilateral: Tonsillectomy Other Surgeries: Yes: , Tubal Ligation Amputation: No Fractures: No - Social History Smoking Status: Never smoker Alcohol Intake: never Substance Use Type: denies use Occupational Status: employed [facility]
== END 2021-05-12 11:00 | disposition home or self-care (01) ==
PROVIDERS: Emergency Provider Nurse Practitioner Family; PCP Internal Medicine Adolescent Medicine
DX: J02.0 Streptococcal pharyngitis (principal)
CPT/HCPCS: 87880; 99202; G0463

== ENCOUNTER 2022-01-19 13:18 | Emergency (ER) | payer OTHER, BC, SELFPAY ==
[2022-01-19 13:19] VITALS: BP 127/73; PULSE 107; RESP 16; TEMP 36.8; O2SAT 98; BMI 27.1
--- NOTE | 2022-01-19 13:47 | HMH.EDGENADL ---
ED Disposition Clinical Impression: Viral upper respiratory infection Disposition: Home, Self-Care Condition on Discharge: Good Additional Instructions: Quarantine yourself until you obtain your respiratory panel/COVID-19 test result. You will be called with the result if it is positive. You may check the results yourself on the [facility] portal. Rest, drink plenty of fluids. Tylenol or Ibuprofen for fever and/or aches and pains. Zofran as needed for nausea and vomiting. Tessalon Perles as needed for cough. Additional instructions for UPPER RESPIRATORY INFECTION: See your physician if not improving in 3-4 days or if worsening. Rest and drink plenty of fluids. Return immediately if you have an uncontrollable fever greater than 104 degrees, difficulty breathing or shortness of breath, persistent vomiting, or inability to swallow. If your COVID test is positive, follow these instructions: Monitor your symptoms. IF YOU HAVE AN EMERGENCY WARNING SIGN (INCLUDING TROUBLE BREATHING), SEEK EMERGENCY MEDICAL CARE IMMEDIATELY. COVID-19 Isolation: People with COVID-19 should isolate for 5 days. Then if they are asymptomatic (no symptoms) or their symptoms are resolving (without fever for 24 hours), follow that by 5 days of wearing a mask when around others to minimize the risk of infecting people you encounter. If you test positive for COVID-19 and never develop symptoms, day 0 is the day of your positive viral test (based on the date you were tested) and day 1 is the first full day after your positive test. If you develop symptoms after testing positive, your 5-day isolation period must start over. Day 0 is your first day of symptoms. Day 1 is the first full day after your symptoms developed. What to do: Stay in a separate room from other household members, if possible. Use a separate bathroom, if possible. Avoid contact with other members of the household and pets. Don?t share personal household items, like cups, towels, and utensils. Wear a mask when around other people if able. Prescriptions: Benzonatate [Benzonatate 100mg cap] 100 mg PO TIDP PRN #15 cap PRN Reason: Cough Transmission Status: Received by [facility] Ondansetron [Zofran 4mg ODT] 4 mg PO TIDP PRN #10 tab PRN Reason: Nausea And Vomiting Transmission Status: Received by [facility] Referrals: Chin Guajardo MD [Primary Care Provider] - Forms: Work/School Release - Critical Care Critical Care Time: No Attestation: On 01/19/22, the high probability of a clinically significant, sudden or life threatening deterioration of the following system(s) required my full and direct attention, intervention and personal management. The time I documented below is in addition to time spent performing reported procedures but includes the following listed in this critical care notation. Medical Decision Making - Angel Inquiry Pt receiving controlled substance: No Vital Signs: 01/19/22 13:19 Temperature 98.3 F Temperature Source Oral Pulse Rate [Right Radial] 107 H Respiratory Rate 16 Blood Pressure [Right Arm] 127/73 Blood Pressure Mean [Right Arm] 91 Blood Pressure Source [Right Arm] Automatic Cuff Blood Pressure Position [Right Arm] Sitting 02 Sat by Pulse Oximetry 98 Oxygen Delivery Method Room Air Orders (Tests/Meds): ORDERS Category Date Time Status Full Resp Panel w/COVID ([facility]) Routine Lab 01/19/22 13:46 Ordered General Adult HPI - General Chief complaint: Upper Respiratory Infection Stated complaint: covid symptoms Time Seen by Provider: 01/19/22 13:47 Mode of Arrival: Ambulatory Limitations: No Limitations Description of Symptoms (Recalled from ER Triage Doc. by RN): Pt c/o covid-like symptoms. C/O VAZQUEZ, cough, sore throat, fever, vomiting since yesterday. - History of Present Illness HPI narrative: Complains of COVID symptoms . She is being seen here along with
[2022-01-19 14:01] LABS: Adenovirus,PCR Not Detected (NotDetected); Bordetella Pertussis Not Detected (NotDetected); Chlamydophila Pneumoniae, PCR Not Detected (NotDetected); Coronavirus 229E Not Detected (NotDetected); Coronavirus NL63 Not Detected (NotDetected); Coronavirus OC43 Not Detected (NotDetected); Coronovirus HKU1,PCR Not Detected (NotDetected); Human Metapneumovirus Not Detected (NotDetected); Influenza A, PCR Not Detected (NotDetected); Influenza AH1, 2009 Not Detected (NotDetected); Influenza AH1, PCR Not Detected (NotDetected); Influenza AH3,PCR Not Detected (NotDetected); Influenza B, PCR Not Detected (NotDetected); Mycoplasma Pneumoniae, PCR Not Detected (NotDetected); Parainfluenza 1, PCR Not Detected (NotDetected); Parainfluenza 2, PCR Not Detected (NotDetected); Parainfluenza 3, PCR Not Detected (NotDetected); Parainfluenza 4, PCR Not Detected (NotDetected); Respiratory Syncytial Virus Not Detected (NotDetected); Rhinovirus/Enterovirus Not Detected (NotDetected)
[2022-01-19 14:14] VITALS: BP 121/68; PULSE 78; RESP 16; TEMP 36.8; O2SAT 98
[2022-01-19 15:42] LABS: Coronavirus 19, PCR Detected (NotDetected)
--- NOTE | 2022-01-19 19:01 | PC.NURSE ---
Called pt and informed them of positive COVID results
== END 2022-01-19 14:15 | disposition home or self-care (01) ==
PROVIDERS: Emergency Provider Emergency Medicine; PCP Internal Medicine Adolescent Medicine
DX: U07.1 COVID-19 (principal)
CPT/HCPCS: 87581; 87632; 87798; 99283; C9803; U0003; U0005

== ENCOUNTER 2022-02-07 15:00 | Outpatient (RCR) | payer OTHER, BC, SELFPAY ==
--- NOTE | 2021-12-10 15:56 | HMH.PTOPWND ---
Rehab Outpt Wound Evaluation Rehab OP Wound Evaluation Start: 12/10/21 15:50 Freq: Status: Active Protocol: Document 12/10/21 15:50 LAWANDA (Rec: 12/10/21 15:56 PHORROBERT [id number]) Electronically Signed By Primo Jin, PT 12/10/21 15:50 Subjective/History History History Pt is 41 yowf who presents with continued chronic edema of B LE with worsening pain in B upper legs. She reports no c/o tenderness to palpation in the lower legs, but 2/4 in lateral thigh B. She has been previously diagnosed with Lipidema and was seen at our clinic with good results. She reports increased feelings of heaviness in B LE also. Subjective Subjective Currently pain is manageable, but 5/10 in B LE. She states, the pain is worse at night, I just can't get comfortable and it makes me feel like I've got restless leg syndrome. Lymphedema Eval Classification of Lymphedema Secondary Lymphedema Yes: Lipidema Stemmer's sign Stemmer's Sign no Stage of Lymphedema Lymphedema stages Stage II (Pitting edema, increased fibrosis w/ decreased pitting) Skin Changes Dry Skin Yes Skin Folds Yes Redness Yes Other Changes Yes Pain Scale Pain Scale (0-10) 5 Affected Extremities Areas Affected by Lymphedema/Edema Right Lower Extremity,Left Lower Extremity Manual Lymphatic Drainage Treatment Area MLD Treatment Area Abdomen,Right Lower Extremity, Left Lower Extremity Wound Problems/Impairments Impairments Problems/Impairmments Palpation Tenderness,Impaired Walking,Impaired Standing, Impaired Recreational Activities,Impaired Work Activities,Increased Edema, Lymphedema Present,Subjective C/O Pain,Impaired Self Care/ Self Management Prognosis Rehab Potential Good Clinical Impression Consistent with Diagnosis Yes Consistent with Lipidema Short Term Goals Number of Weeks 2 Decreased Palpation Tenderness Yes: 07/10
--- NOTE | 2022-02-07 15:00 | HMH.RHREAS ---
Rehab Reassessment Rehab OP Re-assessment Start: 02/07/22 14:54 Freq: Status: Active Protocol: Document 02/07/22 14:55 LAWANDA (Rec: 02/07/22 14:59 LAWANDA [id number]) Electronically Signed By Primo Jin, PT 02/07/22 14:55 Rehab Re-assessment Subjective Subjective Pt reports no changes currently, pain 3/10. Pain at worst 6/10, mostly at night. It feels almost like restless leg syndrome sometimes. Objective Objective Notes B LE continue to present with ankle cuff due to lipidema with sparin gof B feet. Minimal grainy nodules palpable with very light touch to B LE. Assessment Progress Assessment Progressing as Expected Assessment Notes Pain has somewhat decreased at this time, but circumferential measurements remains approximately the same B. She recently got a lymphedema compression pump for home use which should help , and was ill for the past two weeks which obviously hindered her ability to receive care. Patient goals met ST,2,3,4 Goals Not Met LT,2,3,4,5,6,7 Revised Goals none Plan Plan Continue per initial POC. Frequency of Therapy 2 x/wk Duration of therapy 4 wks Time and Billing Re-Eval Time 14 Re-Eval Billing Units 1 PHYSICIAN CERTIFICATION: I certify the specified therapy services for [facility] are required, authorized, and reviewed every 30 days.
== END 2022-02-07 15:05 | disposition home or self-care (01) ==
LOC: PT 15:00
PROVIDERS: PCP Internal Medicine Adolescent Medicine; Visit Provider Internal Medicine Adolescent Medicine
DX: I89.0 Lymphedema, not elsewhere classified (principal)
CPT/HCPCS: 97140; 97162; 97164

== ENCOUNTER → 2022-05-21 15:08 | Outpatient (CLI) | payer OTHER, BC, SELFPAY ==
--- NOTE | 2022-05-21 15:16 | MM_ITS ---
PROCEDURE INFORMATION: Exam: MG Bilateral Screening 3D Mammography Exam date and time: 05/21/2022 3:10 PM Age: 42 years old Clinical indication: Screening examination . No family history of breast cancer. TECHNIQUE: Imaging protocol: Bilateral Screening tomosynthesis and 2D mammography including computer-aided detection (CAD) when performed. COMPARISON: 1. MG MM DIG MAMM BI DX W/CAD 04/25/2021 3:18 PM 2. MG MM DIG MAMM BI DX W/CAD 10/04/2019 3:50 PM 3. MG BC-MAMM DIAG BILAT DIG PNL 10/17/2015 1:51 PM 4. US BREAST LT COMPLETE 10/04/2019 3:54 PM FINDINGS: MAMMOGRAPHY: Breast composition: The breasts are extremely dense, which lowers the sensitivity of mammography. Mass: 0.9 cm oval, partly imaged mass/asymmetry in the outer left breast, posterior 3rd, 7-8 cm from the nipple, craniocaudad view only. Architectural distortion: None. Calcifications: No suspicious calcifications. Asymmetric density: None. Skin thickening: None. Axillary adenopathy: None. IMPRESSION: Patient will be recalled for left diagnostic spot compression views in the CC, MLO, as well as full field lateral and left sonography for further evaluation of possible left breast mass. ASSESSMENT: BI-RADS Category 0: Incomplete- Need Additional Imaging Evaluation and/or Prior Mammograms for Comparison
== END ==
PROVIDERS: PCP Internal Medicine Adolescent Medicine; Visit Provider Nurse Practitioner Women's Health
DX: Z12.31 Encounter for screening mammogram for malignant neoplasm of breast (principal)
CPT/HCPCS: 77063; 77067

== ENCOUNTER → 2022-05-24 14:12 | Outpatient (CLI) | payer OTHER, BC, SELFPAY ==
--- NOTE | 2022-05-24 14:18 | MM_ITS ---
PROCEDURE INFORMATION: Exam: US Left Breast, Complete MG Left Diagnostic Breast Tomosynthesis Exam date and time: 05/24/2022 2:35 PM Age: 42 years old Clinical indication: Recall on the basis of screening mammogram 05/21/2022 for further evaluation of 0 9 cm partly imaged mass/asymmetry in the outer left breast TECHNIQUE: Imaging protocol: Complete ultrasound of all four quadrants of the Left breast and the retroareolar regions, including ultrasound of the axilla when performed. Left Diagnostic tomosynthesis and 2D mammography including computer-aided detection (CAD) when performed. Unilateral or bilateral exam. COMPARISON: US BREAST LT COMPLETE 10/04/2019 3:54 PM FINDINGS: MAMMOGRAPHY: Additional views, including XCCL spot compression, demonstrate that the questioned mass/asymmetry becomes much less prominent, in similar appearance to the left XCCL from 10/17/2015, with no suspicious mass or asymmetry. ULTRASOUND: Targeted sonography in the upper outer quadrant demonstrates scattered benign-appearing cysts and ductal ectasia, the largest cyst is in the lower inner quadrant measuring 1.2 cm. No mass demonstrated in the far lateral breast. Sonographically unremarkable left axillary lymph node. IMPRESSION: Minimal questionable persistent asymmetry in the left outer breast posterior 3rd, likely benign, suggest six-month follow-up diagnostic mammogram to include XCCL, unless otherwise clinically indicated. Scattered benign-appearing cystic changes. Suggest adding annual screening sonography when the patient returns for her bilateral mammography. ASSESSMENT: BI-RADS Category 3: Probably benign
== END ==
PROVIDERS: PCP Internal Medicine Adolescent Medicine; Visit Provider Nurse Practitioner Women's Health
DX: N63.20 Unspecified lump in the left breast, unspecified quadrant (principal)
CPT/HCPCS: 76641; 77061; 77065; G0279

== ENCOUNTER 2022-05-30 16:31 | Emergency (ER) | payer OTHER, BC, SELFPAY ==
--- NOTE | 2022-05-30 16:25 | ECG_ITS ---
APPROVED REPORT Exam: Resting ECG HR:72 bpm ECG Measurements Heart Rate 72 AXES TN 147 P 65 QRSd 85 QRS 40 QT 380 T 60 QTc 405 Conclusion SINUS RHYTHM WITH SINUS ARRHYTHMIA NORMAL ECG UNCONFIRMED REPORT Electronically signed by : Chin Guajardo MD 05/30/2022 20:08:17
[2022-05-30 16:31] VITALS: BP 147/79; PULSE 62; RESP 14; TEMP 36.7; O2SAT 100; BMI 29.2
[2022-05-30 16:33] VITALS: BMI 29.2
--- NOTE | 2022-05-30 16:34 | XR_ITS ---
PROCEDURE INFORMATION: Exam: XR Chest Exam date and time: 05/30/2022 4:44 PM Age: 42 years old Clinical indication: Pain; Chest pressure; Additional info: Chest pain, along with dizziness started Friday with nausea TECHNIQUE: Imaging protocol: Radiologic exam of the chest. Views: 2 views. COMPARISON: CR XR CHEST 2V 06/18/2020 8:08 PM FINDINGS: Lungs: No lobar consolidation, pleural effusion or pulmonary edema. Old granulomatous disease. Pleural spaces: See Lungs finding. Heart/Mediastinum: Unremarkable. No cardiomegaly. Bones/joints: Unremarkable. IMPRESSION: No lobar consolidation, pleural effusion or pulmonary edema. Plain films are relatively insensitive for detecting any possible ground glass opacities.
--- NOTE | 2022-05-30 16:35 | PC.NURSE ---
attempted multiple IV with no success, us guided IV attempted with no success. LAb notified to come draw blood to complete orders.
--- NOTE | 2022-05-30 16:52 | HMH.EDGENADL ---
Discharge Plan Disposition Patient Disposition: Home, Self-Care Condition: Good Chief Complaint: Chest Pain Prescriptions Prescriptions: No Action prednisone 10 MG tablet 10 mg PO BID 3 Days Qty: 6 0RF amoxicillin 500 MG tablet 500 mg PO TID 10 Days Qty: 30 0RF ondansetron 4 MG tablet,disintegrating 4 mg PO Q8HP PRN (Reason: Nausea) Qty: 12 0RF fluconazole 150 MG tablet 150 mg PO ONCE Qty: 1 2RF phenazopyridine 200 MG tablet 200 pow PO TID Qty: 6 0RF ciprofloxacin HCl 500 MG tablet 500 mg PO BID 7 Days Qty: 14 0RF ondansetron 4 MG tablet,disintegrating 4 mg PO Q8HP PRN (Reason: Nausea) Qty: 20 0RF sulfamethoxazole-trimethoprim 1 EACH tablet 1 each PO BID 7 Days Qty: 14 0RF benzonatate 100 MG capsule 100 mg PO TIDP PRN (Reason: Cough) Qty: 15 0RF ondansetron 4 MG tablet,disintegrating 4 mg PO TIDP PRN (Reason: Nausea And Vomiting) Qty: 10 0RF Referrals Follow up/Referrals: Provider,Referral, MD [Referring] - See instructions Activity Restrictions/Add. Instructions Additional Instructions/Restrictions: Additional instructions for CHEST PAIN: See your physician as soon as possible for further evaluation. Return immediately if worsening chest pain, vomiting, shortness of breath, fever, coughing of blood. Clinical Impressions Clinical Impression: Atypical chest pain Instructions Patient Instructions: DI for Atypical Chest Pain Discharge ED Provider: Gary Brannon General Adult HPI General Chief complaint: Chest Pain Stated complaint: chest pain Time Seen by Provider: 05/30/22 16:55 Mode of Arrival: Ambulatory Source of Information: Patient Limitations: No Limitations Description of Symptoms (Recalled from ER Triage Doc. by RN): c/o chest pain and soa with a deep breath today. Pt states that on Friday she was dizzy and that made her nauseate. The dizziness went away and then returned some yesterday History of Present Illness HPI narrative: Patient states that on Friday she was nauseated and dizzy. Yesterday she felt better. This morning she says the nausea and dizziness came back on and then at about 3 PM she developed a sensation of pressure in the middle of her chest and felt like it was hard to get a deep breath. No history of any heart conditions or lung conditions. She had a stress test years ago, she does not remember why. No family history of heart disease except in a grandfather. She does not have diabetes, hypertension, hyperlipidemia. She is a non-smoker. She is not on hormones or oral contraceptive pills. No recent surgery, travel, or hospitalizations. Related Data Previous Rx's Medication Instructions Recorded ciprofloxacin HCl 500 mg tablet 500 mg PO BID 7 days #14 tabs 02/13/21 fluconazole 150 mg tablet 150 mg PO ONCE #1 tab 02/13/21 ondansetron 4 mg disintegrating 4 mg PO Q8HP PRN Nausea ##20 02/13/21 tablet phenazopyridine 200 mg tablet 200 pow PO TID #6 tabs 02/13/21 sulfamethoxazole 800 1 each PO BID 7 days #14 tabs 02/18/21 mg-trimethoprim 160 mg tablet amoxicillin 500 mg tablet 500 mg PO TID 10 days #30 tabs 05/12/21 ondansetron 4 mg disintegrating 4 mg PO Q8HP PRN Nausea #12 tabs 05/12/21 tablet prednisone 10 mg tablet 10 mg PO BID 3 days #6 tabs 05/12/21 benzonatate 100 mg capsule 100 mg PO TIDP PRN Cough #15 caps 01/19/22 ondansetron 4 mg disintegrating 4 mg PO TIDP PRN Nausea And 01/19/22 tablet Vomiting #10 tabs Allergies Allergy/AdvReac Type Severity Reaction Status Date / Time latex [LATEX] Allergy Unknown Verified 03/23/21 15:17 PFSH PFSH Social History Smoking Status: Never smoker second hand exposure: No alcohol intake: never substance use type: denies use current occupational status: employed Travel in the last 8 weeks: None household members: spouse housing: house ROS Obtained: Yes Systems reviewed as appropriate & no additional complaints except as documented Constit
--- NOTE | 2022-05-30 16:52 | PC.NURSE ---
pt to rad
[2022-05-30 17:24] LABS: Basophils # 0.1 K/mm3 (0-0.2); Basophils % 0.9 % (0.1-2.0); Eosinophils # 0.1 K/mm3 (0.0-0.4); Eosinophils % 1.3 % (0.1-12.0); Hematocrit 38.1 % (37.0-47.0); Lymphocytes # 2.5 K/mm3 (0.7-4.5); Lymphocytes % 29.4 % (10-50); Mean Corpuscular HGB Conc 31.6 g/dL (31.8-35.4); Mean Corpuscular Hemoglobin 30.5 pg (27.0-31.2); Mean Corpuscular Volume 96.5 fl (81-99); Mean Platelet Volume 11.1 fl (7.4-10.4); Monocytes # 0.5 K/mm3 (0.1-1.0); Monocytes % 5.6 % (1.7-9.3); Neutrophils # 5.3 K/mm3 (1.8-7.8); Neutrophils % 62.8 % (37.0-80.0); Platelet Count 201 K/mm3 (142-424); Red Blood Count 3.95 M/mm3 (4.20-5.40); Red Cell Distribution Width 14.8 % (11.5-17.5); White Blood Count 8.4 K/mm3 (4.8-10.8)
[2022-05-30 17:31] VITALS: BP 111/76; RESP 16
[2022-05-30 17:41] LABS: Chloride 104 mmol/L (98-107); Potassium 4.1 mmoL/L (3.5-5.1); Sodium 142 mmol/L (136-145)
[2022-05-30 17:44] LABS: Anion Gap 10.1 mEq/L (5-15); Blood Urea Nitrogen 16 mg/dl (7-17); Carbon Dioxide 32 mmol/L (22.0-30.0); Creatinine Clearance Estimated 126 mL/min (50-200); Estimated Glomerular Filt Rate 91 ml/min (>60); GFR (African American) 111 ML/MIN (>60)
[2022-05-30 17:45] LABS: Calcium 9.5 mg/dl (8.4-10.2); Glucose 96 mg/dl (74-100)
[2022-05-30 17:58] LABS: Troponin I < 0.01 ng/ml (0.00-0.034)
[2022-05-30 18:00] VITALS: BP 121/72; RESP 18
[2022-05-30 20:33] LABS: Troponin I < 0.01 ng/ml (0.00-0.034)
[2022-05-30 21:21] VITALS: BP 121/72; PULSE 68; RESP 18; TEMP 36.7; O2SAT 100
== END 2022-05-30 20:47 | disposition home or self-care (01) ==
PROVIDERS: Emergency Provider Emergency Medicine; PCP Internal Medicine Adolescent Medicine
DX: R07.89 Other chest pain (principal); R42 Dizziness and giddiness; R11.2 Nausea with vomiting, unspecified; Z79.51 Long term (current) use of inhaled steroids; Z79.52 Long term (current) use of systemic steroids; Z79.899 Other long term (current) drug therapy; Z91.040 Latex allergy status
CPT/HCPCS: 36415; 71046; 80048; 84484; 85025; 93005; 99284

== ENCOUNTER → 2022-10-09 10:52 | Outpatient (CLI) | payer OTHER, BC, SELFPAY ==
--- NOTE | 2022-10-09 11:17 | XR_ITS ---
FINAL REPORT TECHNIQUE: Chest PA & Lateral CLINICAL HISTORY: SOA- weakness COMPARISON: 05/30/2022 FINDINGS: 2 views of the chest were performed. The heart size is normal. The mediastinum is within normal limits. There is no acute cardiopulmonary process. There are no pleural effusions. There is no pneumothorax. The bony thorax appears intact. IMPRESSION: No acute cardiopulmonary process. Reviewed, Interpreted and Dictated by Allan Mcfarland MD Transcribed by Damaris Christianson Authenticated and [facility]
[2022-10-09 11:38] LABS: Basophils # 0.1 K/mm3 (0-0.2); Basophils % 0.7 % (0.1-2.0); Eosinophils # 0.1 K/mm3 (0.0-0.4); Eosinophils % 1.3 % (0.1-12.0); Hematocrit 36.5 % (37.0-47.0); Hemoglobin 11.9 g/dL (12.2-16.2); Lymphocytes # 1.9 K/mm3 (0.7-4.5); Lymphocytes % 27.2 % (10-50); Mean Corpuscular HGB Conc 32.6 g/dL (31.8-35.4); Mean Corpuscular Hemoglobin 31.1 pg (27.0-31.2); Mean Corpuscular Volume 95.5 fl (81-99); Mean Platelet Volume 10.9 fl (7.4-10.4); Monocytes # 0.4 K/mm3 (0.1-1.0); Monocytes % 5.8 % (1.7-9.3); Neutrophils # 4.5 K/mm3 (1.8-7.8); Neutrophils % 65.1 % (37.0-80.0); Platelet Count 196 K/mm3 (142-424); Red Blood Count 3.82 M/mm3 (4.20-5.40); Red Cell Distribution Width 13.8 % (11.5-17.5); White Blood Count 6.9 K/mm3 (4.8-10.8)
[2022-10-09 12:14] LABS: Chloride 103 mmol/L (98-107); Sodium 136 mmol/L (136-145)
[2022-10-09 12:15] LABS: Potassium 4.2 mmoL/L (3.5-5.1)
[2022-10-09 12:17] LABS: Alanine Aminotransferase 13 U/L (12-78); Albumin Level 4.4 g/dl (3.5-5.0); Albumin/Globulin Ratio 1.5 (1.1-1.8); Alkaline Phosphatase 82 U/L (38-126); Anion Gap 9.2 mEq/L (5-15); Aspartate Amino Transferase 21 U/L (14-36); Bilirubin,Total 0.8 mg/dl (0.2-1.3); Blood Urea Nitrogen 11 mg/dl (7-17); Calcium 8.6 mg/dl (8.4-10.2); Carbon Dioxide 28 mmol/L (22.0-30.0); Cholesterol 164 mg/dl (140-200); Estimated Glomerular Filt Rate 135 ml/min (>60); GFR (African American) 163 ML/MIN (>60); Globulin 2.9 g/dL (1.3-3.2); Glucose 81 mg/dl (74-100); Total Protein,Serum 7.3 g/dl (6.3-8.2); Triglycerides 62 mg/dl (30-150); VLDL Cholesterol 12 mg/dL (0-40)
[2022-10-09 12:18] LABS: HDL Cholesterol 55 mg/dl (40-60)
[2022-10-09 12:49] LABS: Thyroid Stimulating Hormone 1.42 uIU/mL (0.465-4.68)
[2022-10-09 17:21] LABS: NT Pro Brain Natriuretic Pep. 103 pg/mL (0-125)
[2022-10-09 17:22] LABS: Direct LDL Cholesterol 96.77 mg/dL (100-129)
[2022-10-09 17:24] LABS: 25-OH Vitamin D, Total < 12.8 ng/mL (30-100)
[2022-10-09 18:00] LABS: Vitamin B12 267 pg/mL (239-931)
== END ==
PROVIDERS: PCP Internal Medicine Adolescent Medicine; Visit Provider Nurse Practitioner Family
DX: Z00.00 Encounter for general adult medical examination without abnormal findings (principal); R06.02 Shortness of breath; R53.83 Other fatigue
CPT/HCPCS: 36415; 71046; 80053; 80061; 82306; 82607; 83880; 84443; 85025; 93225; 93226

== ENCOUNTER 2022-10-09 17:12 | Emergency (ER) | payer OTHER, BC, SELFPAY ==
--- NOTE | 2022-10-09 17:12 | ECG_ITS ---
APPROVED REPORT Exam: Resting ECG HR:85 bpm ECG Measurements Heart Rate 85 AXES HI 152 P 77 QRSd 94 QRS 56 QT 359 T 66 QTc 401 Conclusion SINUS RHYTHM POSSIBLE RIGHT VENTRICULAR CONDUCTION DELAY [RSR (QR) IN V1/V2] BORDERLINE ECG UNCONFIRMED REPORT Electronically signed by : Chin Guajardo MD 10/11/2022 17:04:34
[2022-10-09 17:13] VITALS: BP 148/85; PULSE 85; RESP 16; TEMP 36.6; O2SAT 100; BMI 27.6
--- NOTE | 2022-10-09 17:20 | HMH.EDCP ---
Discharge Plan Disposition Patient Disposition: Home, Self-Care Condition: Fair Chief Complaint: Chest Pain Prescriptions Prescriptions: No Action prednisone 10 MG tablet 10 mg PO BID 3 Days Qty: 6 0RF amoxicillin 500 MG tablet 500 mg PO TID 10 Days Qty: 30 0RF ondansetron 4 MG tablet,disintegrating 4 mg PO Q8HP PRN (Reason: Nausea) Qty: 12 0RF fluconazole 150 MG tablet 150 mg PO ONCE Qty: 1 2RF phenazopyridine 200 MG tablet 200 pow PO TID Qty: 6 0RF ciprofloxacin HCl 500 MG tablet 500 mg PO BID 7 Days Qty: 14 0RF ondansetron 4 MG tablet,disintegrating 4 mg PO Q8HP PRN (Reason: Nausea) Qty: 20 0RF sulfamethoxazole-trimethoprim 1 EACH tablet 1 each PO BID 7 Days Qty: 14 0RF benzonatate 100 MG capsule 100 mg PO TIDP PRN (Reason: Cough) Qty: 15 0RF ondansetron 4 MG tablet,disintegrating 4 mg PO TIDP PRN (Reason: Nausea And Vomiting) Qty: 10 0RF Activity Restrictions/Add. 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 Return to the emergency department immediately if you feel worse in any way. Your blood work today did not show any dangerous conditions. There is no evidence of heart attack. I suspect that your symptoms may be from your esophagus. I recommend that you take some [id number] gastroesophageal reflux/antacid medications. Even if you feel better please follow-up. Also follow-up with your primary care physician in about 3 to 5 days if you do not feel any better. Clinical Impressions Clinical Impression: Chest pain, Atypical chest pain Instructions Patient Instructions: DI for Atypical Chest Pain Discharge ED Provider: Rhiannon Menendez Chest Pain HPI General Chief Complaint: Chest Pain Stated Complaint: chest pain Time Seen by Provider: 10/09/22 17:20 History of Present Illness HPI narrative: The patient presents to the emergency department accompanied by her complaining of chest pain that radiates between her shoulder blades and down her left arm. This discomfort began at 3 AM today. It has gotten worse since about 1 PM. It has been constant. The patient complains of some dizziness and some mild nausea earlier tonight. MD complaint: chest pain JATIN Score for Non-Stemi Age of Patient: 40-49 years old Heart Rate: 70-89 bpm Systolic Blood Pressure: 120-139 mmhg Serum Creatinine: 0.40-0.79 mg/dl CHF [place] Class: I-No CHF Other Risk Factors: None Non-Stemi Risk Score: 72 Related Data Previous Rx's Medication Instructions Recorded ciprofloxacin HCl 500 mg tablet 500 mg PO BID 7 days #14 tabs 02/13/21 fluconazole 150 mg tablet 150 mg PO ONCE #1 tab 02/13/21 ondansetron 4 mg disintegrating 4 mg PO Q8HP PRN Nausea ##20 02/13/21 tablet phenazopyridine 200 mg tablet 200 pow PO TID #6 tabs 02/13/21 sulfamethoxazole 800 1 each PO BID 7 days #14 tabs 02/18/21 mg-trimethoprim 160 mg tablet amoxicillin 500 mg tablet 500 mg PO TID 10 days #30 tabs 05/12/21 ondansetron 4 mg disintegrating 4 mg PO Q8HP PRN Nausea #12 tabs 05/12/21 tablet prednisone 10 mg tablet 10 mg PO BID 3 days #6 tabs 05/12/21 benzonatate 100 mg capsule 100 mg PO TIDP PRN Cough #15 caps 01/19/22 ondansetron 4 mg disintegrating 4 mg PO TIDP PRN Nausea And 01/19/22 tablet Vomiting #10 tabs Allergies Allergy/AdvReac Type Severity Reaction Status Date / Time latex [LATEX] Allergy Unknown Verified 03/23/21 15:17 [facility] Disclaimer: The information contained in this section may have been updated after the patient was seen, as this information can be updated by other users. Social History Smoking Status: Never smoker second hand exposure: No alcohol intake: never substance use type: denies use current occupational status: employed Travel in the last 8 weeks: None household members: spouse housing: house ROS Obtained: Fredrick
[2022-10-09 17:24] VITALS: BMI 27.6
--- NOTE | 2022-10-09 17:25 | XR_ITS ---
PROCEDURE INFORMATION: Exam: XR Chest Exam date and time: 10/09/2022 5:30 PM Age: 42 years old Clinical indication: Sternal or substernal pain; Additional info: Chest pain, since 3am this morning, got much worse around 2pm today. TECHNIQUE: Imaging protocol: Radiologic exam of the chest. Views: 2 views. COMPARISON: CR XR CHEST 2V 11/07/2022 11:24 FINDINGS: Lungs: Stigmata of old granulomatous disease. Pleural spaces: Unremarkable. No pleural effusion. No pneumothorax. Heart/Mediastinum: Unremarkable. No cardiomegaly. Bones/joints: Unremarkable. IMPRESSION: No acute findings.
[2022-10-09 17:31] VITALS: BP 127/72; PULSE 88; RESP 18; O2SAT 100
[2022-10-09 17:44] LABS: Anion Gap 13.7 mEq/L (5-15); Basophils # 0.1 K/mm3 (0-0.2); Basophils % 0.5 % (0.1-2.0); Blood Urea Nitrogen 14 mg/dl (7-17); Calcium 8.7 mg/dl (8.4-10.2); Carbon Dioxide 25 mmol/L (22.0-30.0); Chloride 103 mmol/L (98-107); Creatinine Clearance Estimated 152 mL/min (50-200); Eosinophils # 0.1 K/mm3 (0.0-0.4); Eosinophils % 0.9 % (0.1-12.0); Estimated Glomerular Filt Rate 109 ml/min (>60); GFR (African American) 132 ML/MIN (>60); Glucose 100 mg/dl (74-100); Hematocrit 38.8 % (37.0-47.0); Hemoglobin 12.2 g/dL (12.2-16.2); Lymphocytes # 2.2 K/mm3 (0.7-4.5); Lymphocytes % 24.9 % (10-50); Mean Corpuscular HGB Conc 31.4 g/dL (31.8-35.4); Mean Corpuscular Hemoglobin 30.5 pg (27.0-31.2); Mean Corpuscular Volume 97.2 fl (81-99); Mean Platelet Volume 10.6 fl (7.4-10.4); Monocytes # 0.5 K/mm3 (0.1-1.0); Monocytes % 5.8 % (1.7-9.3); Neutrophils # 5.9 K/mm3 (1.8-7.8); Neutrophils % 67.9 % (37.0-80.0); Platelet Count 200 K/mm3 (142-424); Potassium 3.7 mmoL/L (3.5-5.1); Red Blood Count 3.99 M/mm3 (4.20-5.40); Red Cell Distribution Width 13.8 % (11.5-17.5); Sodium 138 mmol/L (136-145); White Blood Count 8.7 K/mm3 (4.8-10.8)
[2022-10-09 18:00] VITALS: BP 133/86; PULSE 85; RESP 16; O2SAT 100
[2022-10-09 18:02] LABS: Troponin I < 0.01 ng/ml (0.00-0.034)
[2022-10-09 18:24] VITALS: BP 120/75; PULSE 82; RESP 16; O2SAT 100
[2022-10-09 18:27] VITALS: BP 120/75; PULSE 88; RESP 18; TEMP 36.7; O2SAT 100
--- NOTE | 2022-10-09 18:29 | PC.NURSE ---
Violeta RN called respiratory to come put outpatient order houlter monitor on pt. Pt aware of this.
--- NOTE | 2022-10-09 18:37 | PC.NURSE ---
pt has outpt order from pcp for holter monitor, contacted RT states they will come down and place order on pt.
--- NOTE | 2022-10-09 18:45 | PC.NURSE ---
Respiratory at BS placing the patient's Holter monitor
== END 2022-10-09 18:51 | disposition home or self-care (01) ==
PROVIDERS: Emergency Provider Emergency Medicine; PCP Nurse Practitioner Family
DX: R07.9 Chest pain, unspecified (principal); M79.602 Pain in left arm
CPT/HCPCS: 71046; 80048; 84484; 85025; 93005; 99285

== ENCOUNTER → 2022-10-11 20:00 | Outpatient (CLI) | payer OTHER, BC, SELFPAY | PROVIDERS: PCP Nurse Practitioner Family; Visit Provider Nurse Practitioner | DX: R06.09 Other forms of dyspnea (principal); R07.89 Other chest pain; R42 Dizziness and giddiness; R60.9 Edema, unspecified | CPT/HCPCS: 93270 ==

== ENCOUNTER → 2022-10-14 07:21 | Outpatient (CLI) | payer OTHER, BC, SELFPAY | PROVIDERS: PCP Internal Medicine Adolescent Medicine; Visit Provider Nurse Practitioner | DX: R06.09 Other forms of dyspnea (principal); R07.89 Other chest pain; R42 Dizziness and giddiness | CPT/HCPCS: 78452; 93017; 93306; A9502 ==

== ENCOUNTER → 2022-11-13 14:34 | Outpatient (CLI) | payer OTHER, BC, SELFPAY ==
[2022-11-13 15:55] LABS: Basophils % 0.5 % (0.1-2.0); Eosinophils # 0.2 K/mm3 (0.0-0.4); Eosinophils % 2.1 % (0.1-12.0); Hematocrit 36.5 % (37.0-47.0); Hemoglobin 11.5 g/dL (12.2-16.2); Lymphocytes # 2.3 K/mm3 (0.7-4.5); Lymphocytes % 27.1 % (10-50); Mean Corpuscular HGB Conc 31.5 g/dL (31.8-35.4); Mean Corpuscular Hemoglobin 29.6 pg (27.0-31.2); Mean Corpuscular Volume 93.9 fl (81-99); Mean Platelet Volume 10.4 fl (7.4-10.4); Monocytes # 0.4 K/mm3 (0.1-1.0); Monocytes % 5.1 % (1.7-9.3); Neutrophils # 5.6 K/mm3 (1.8-7.8); Neutrophils % 65.1 % (37.0-80.0); Platelet Count 214 K/mm3 (142-424); Red Blood Count 3.89 M/mm3 (4.20-5.40); Red Cell Distribution Width 14.1 % (11.5-17.5); White Blood Count 8.5 K/mm3 (4.8-10.8)
[2022-11-13 16:48] LABS: Alanine Aminotransferase 17 U/L (12-78); Albumin Level 4.2 g/dl (3.5-5.0); Albumin/Globulin Ratio 1.4 (1.1-1.8); Alkaline Phosphatase 67 U/L (38-126); Anion Gap 17.7 mEq/L (5-15); Aspartate Amino Transferase 22 U/L (14-36); Bilirubin,Total 0.2 mg/dl (0.2-1.3); Blood Urea Nitrogen 17 mg/dl (7-17); Calcium 8.6 mg/dl (8.4-10.2); Carbon Dioxide 27 mmol/L (22.0-30.0); Chloride 98 mmol/L (98-107); Estimated Glomerular Filt Rate 91 ml/min (>60); GFR (African American) 111 ML/MIN (>60); Glucose 112 mg/dl (74-100); Potassium 3.7 mmoL/L (3.5-5.1); Sodium 139 mmol/L (136-145); Total Protein,Serum 7.2 g/dl (6.3-8.2)
[2022-11-13 17:00] LABS: Free T4 (Free Thyroxine) 1.29 ng/dl (0.78-2.19)
[2022-11-13 17:04] LABS: 25-OH Vitamin D, Total 43.8 ng/mL (30-100)
[2022-11-13 17:17] LABS: Thyroid Stimulating Hormone 0.71 uIU/mL (0.465-4.68)
[2022-11-15 12:30] LABS: Thyroid Peroxidase Antibodies <9 IU/mL (0-34)
[2022-11-15 15:11] LABS: Thyroglobulin Level <1.0 IU/mL (0.0-0.9)
[2022-11-17 12:09] LABS: Antinuclear Antibodies, IFA Negative (.)
[2022-11-21 15:11] LABS: D001-IgE D pteronyssinus 0.38 kU/L (Class I); D002-IgE D farinae 0.42 kU/L (Class I); E001-IgE Cat Dander 0.11 kU/L (Class 0/I); E005-IgE Dog Dander 0.28 kU/L (Class 0/I); E072-IgE Mouse Urine <0.10 kU/L (Class 0); G002-IgE Bermuda Grass <0.10 kU/L (Class 0); G006-IgE Timothy Grass <0.10 kU/L (Class 0); I006-IgE Cockroach, German 1.92 kU/L (Class III); Immunoglobulin E, Total 215 IU/mL (6-495); M001-IgE Penicillium chrysogen <0.10 kU/L (Class 0); M002-IgE Cladosporium herbarum <0.10 kU/L (Class 0); M003-IgE Aspergillus fumigatus <0.10 kU/L (Class 0); M006-IgE Alternaria alternata <0.10 kU/L (Class 0); T001-IgE Maple/Box Elder <0.10 kU/L (Class 0); T003-IgE Common Silver Birch <0.10 kU/L (Class 0); T006-IgE Cedar, Mountain <0.10 kU/L (Class 0); T007-IgE Oak, White <0.10 kU/L (Class 0); T008-IgE Elm, American <0.10 kU/L (Class 0); T010-IgE Walnut <0.10 kU/L (Class 0); T011-IgE Maple Leaf Sycamore <0.10 kU/L (Class 0); T014-IgE Cottonwood <0.10 kU/L (Class 0); T015-IgE Ash, White <0.10 kU/L (Class 0); T022-IgE Pecan, Hickory <0.10 kU/L (Class 0); T070-IgE White Mulberry <0.10 kU/L (Class 0); W011-IgE Thistle, Russian <0.10 kU/L (Class 0); W014-IgE Pigweed, Common <0.10 kU/L (Class 0); W018-IgE Sheep Sorrel <0.10 kU/L (Class 0)
== END ==
LOC: LAB 14:36
PROVIDERS: PCP Internal Medicine Adolescent Medicine; Visit Provider Allergy & Immunology
DX: L50.8 Other urticaria (principal)
CPT/HCPCS: 36415; 80053; 82306; 82785; 83520; 84439; 84443; 85025; 86003; 86038; 86352; 86376; 86800

== ENCOUNTER → 2022-11-19 13:01 | Outpatient (CLI) | payer OTHER, BC, SELFPAY ==
--- NOTE | 2022-11-19 13:05 | CT_ITS ---
FINAL REPORT CLINICAL HISTORY: dyspnea, otherwise normal testing FINDINGS: Thin section axial CT images of the chest were obtained with contrast. 3D reformatted images were also obtained. This study was performed with techniques to keep radiation doses as low as reasonably achievable (ALARA). Individualized dose reduction techniques using automated exposure control or adjustment of mA and/or kV according to the patient''s size were employed. There is no evidence of pulmonary embolism. There is no evidence of thoracic aortic aneurysm or dissection. There is no evidence of mediastinal or hilar mass or adenopathy. There is no evidence of pulmonary mass or nodule. No localized inflammatory process is seen within the lungs. Limited images of the upper abdomen are unremarkable. IMPRESSION: No evidence of pulmonary embolism. No mass or localized inflammatory process. Reviewed, Interpreted and Dictated by Kenton Ruiz III, MD Transcribed by Sadie Madera Authenticated and [facility]
[2022-11-19 15:40] VITALS: PULSE 91; PULSE 96
== END ==
PROVIDERS: PCP Internal Medicine Adolescent Medicine; Visit Provider Nurse Practitioner
DX: R06.09 Other forms of dyspnea (principal); R07.9 Chest pain, unspecified
CPT/HCPCS: 71275; 94060; 94640; 94727; 94729; Q9967

== ENCOUNTER → 2022-11-19 14:11 | Outpatient (POV) | payer OTHER, BC, SELFPAY | PROVIDERS: Visit Provider Dermatology | DX: Z00.00 Encounter for general adult medical examination without abnormal findings (principal) ==

== ENCOUNTER → 2023-01-23 15:51 | Outpatient (CLI) | payer OTHER, BC, SELFPAY ==
[2023-01-23 16:54] LABS: Basophils % 0.4 % (0.1-2.0); Eosinophils # 0.1 K/mm3 (0.0-0.4); Eosinophils % 1.6 % (0.1-12.0); Hematocrit 34.6 % (37.0-47.0); Hemoglobin 10.7 g/dL (12.2-16.2); Lymphocytes % 27.8 % (10-50); Mean Corpuscular Hemoglobin 28.9 pg (27.0-31.2); Mean Corpuscular Volume 93.4 fl (81-99); Mean Platelet Volume 13.9 fl (7.4-10.4); Monocytes # 0.5 K/mm3 (0.1-1.0); Monocytes % 6.9 % (1.7-9.3); Neutrophils # 4.6 K/mm3 (1.8-7.8); Neutrophils % 63.3 % (37.0-80.0); Platelet Count 135 K/mm3 (142-424); Red Blood Count 3.71 M/mm3 (4.20-5.40); Red Cell Distribution Width 14.7 % (11.5-17.5); White Blood Count 7.2 K/mm3 (4.8-10.8)
[2023-01-23 17:22] LABS: Alanine Aminotransferase 13 U/L (12-78); Albumin Level 4.5 g/dl (3.5-5.0); Albumin/Globulin Ratio 1.4 (1.1-1.8); Alkaline Phosphatase 49 U/L (38-126); Anion Gap 15.7 mEq/L (5-15); Aspartate Amino Transferase 28 U/L (14-36); Bilirubin,Total 0.8 mg/dl (0.2-1.3); Blood Urea Nitrogen 15 mg/dl (7-17); Calcium 9.1 mg/dl (8.4-10.2); Carbon Dioxide 20 mmol/L (22.0-30.0); Chloride 104 mmol/L (98-107); Chol/HDL Ratio 2.7 (1-3.5); Cholesterol 153 mg/dl (140-200); Estimated Glomerular Filt Rate 135 ml/min (>60); GFR (African American) 163 ML/MIN (>60); Globulin 3.2 g/dL (1.3-3.2); Glucose 88 mg/dl (74-100); HDL Cholesterol 56 mg/dl (40-60); Potassium 4.7 mmoL/L (3.5-5.1); Sodium 135 mmol/L (136-145); Total Protein,Serum 7.7 g/dl (6.3-8.2); Triglycerides 70 mg/dl (30-150); VLDL Cholesterol 14 mg/dL (0-40)
[2023-01-23 17:33] LABS: Direct LDL Cholesterol 79.45 mg/dL (100-129)
[2023-01-23 17:39] LABS: 25-OH Vitamin D, Total 36.5 ng/mL (30-100)
[2023-01-23 18:11] LABS: Vitamin B12 415 pg/mL (239-931)
[2023-01-25 10:11] LABS: Lyme Ab CIA Negative (Negative)
== END ==
PROVIDERS: PCP Internal Medicine Adolescent Medicine; Visit Provider Internal Medicine Adolescent Medicine
DX: Z00.00 Encounter for general adult medical examination without abnormal findings (principal); E53.8 Deficiency of other specified B group vitamins; E55.9 Vitamin D deficiency, unspecified; W57.XXXS Bitten or stung by nonvenomous insect and other nonvenomous arthropods, sequela
CPT/HCPCS: 36415; 80053; 80061; 82306; 82607; 85025; 86618

== ENCOUNTER → 2023-03-06 15:22 | Outpatient (CLI) | payer OTHER, BC, SELFPAY ==
[2023-03-06 17:35] LABS: Basophils # 0.1 K/mm3 (0-0.2); Basophils % 0.6 % (0.1-2.0); Eosinophils # 0.1 K/mm3 (0.0-0.4); Eosinophils % 1.3 % (0.1-12.0); Hematocrit 36.1 % (37.0-47.0); Hemoglobin 11.2 g/dL (12.2-16.2); Lymphocytes # 1.7 K/mm3 (0.7-4.5); Lymphocytes % 22.1 % (10-50); Mean Corpuscular HGB Conc 30.9 g/dL (31.8-35.4); Mean Corpuscular Hemoglobin 28.1 pg (27.0-31.2); Mean Corpuscular Volume 90.7 fl (81-99); Mean Platelet Volume 13.2 fl (7.4-10.4); Monocytes # 0.5 K/mm3 (0.1-1.0); Monocytes % 6.1 % (1.7-9.3); Neutrophils # 5.5 K/mm3 (1.8-7.8); Neutrophils % 69.9 % (37.0-80.0); Platelet Count 191 K/mm3 (142-424); Red Blood Count 3.98 M/mm3 (4.20-5.40); Red Cell Distribution Width 15.3 % (11.5-17.5); White Blood Count 7.8 K/mm3 (4.8-10.8)
[2023-03-06 18:04] LABS: Chloride 101 mmol/L (98-107); Sodium 138 mmol/L (136-145)
[2023-03-06 18:05] LABS: Potassium 4.4 mmoL/L (3.5-5.1)
[2023-03-06 18:07] LABS: Anion Gap 14.4 mEq/L (5-15); Blood Urea Nitrogen 22 mg/dl (7-17); Carbon Dioxide 27 mmol/L (22.0-30.0); Estimated Glomerular Filt Rate 78 ml/min (>60); GFR (African American) 95 ML/MIN (>60)
[2023-03-06 18:08] LABS: Calcium 9.6 mg/dl (8.4-10.2); Glucose 83 mg/dl (74-100)
[2023-03-06 18:21] LABS: 25-OH Vitamin D, Total 38.4 ng/mL (30-100)
[2023-03-06 22:05] LABS: Vitamin B12 310 pg/mL (239-931)
[2023-03-08 11:50] LABS: Immunoglobulin A, Qn 177 mg/dL (87-352)
[2023-03-12 07:21] LABS: E005-IgE Dog Dander 0.18 kU/L (Class 0/I); F002-IgE Milk 0.13 kU/L (Class 0/I); F027-IgE Beef 0.68 kU/L (Class II); F088-IgE Lamb 0.49 kU/L (Class I); Immunoglobulin E, Total 119 IU/mL (6-495); O215-IgE Alpha-Gal 2.69 kU/L (Class III)
[2023-03-12 12:45] LABS: Lyme B. burgdorferi PCR Blood Negative (Negative)
[2023-03-24 11:30] LABS: F027-IgE Beef 0.68 kU/L (<0.10); Immunoglobulin E, Total 119 IU/mL (6-495)
== END ==
LOC: LAB 15:23
PROVIDERS: PCP Internal Medicine Adolescent Medicine; Visit Provider Nurse Practitioner
DX: Z01.82 Encounter for allergy testing (principal)
CPT/HCPCS: 36415; 80048; 82306; 82607; 82784; 82785; 85025; 86003; 86352; 87476

== ENCOUNTER → 2023-03-17 15:52 | Outpatient (CLI) | payer OTHER, BC, SELFPAY ==
[2023-03-17 16:02] LABS: Microscopic, Urine URINE MICROSCOPIC (MICROSCOPIC)
[2023-03-17 16:39] LABS: Appearance,Urine CLEAR (Clear); Bilirubin,Urine Negative (Negative); Blood, Urine 1+ (Negative); Color,Urine YELLOW (Yellow); Glucose,Urine (UA) Negative (Negative); Ketones,Urine Negative (Negative); Leukocyte Esterase,Urine TRACE (Negative); Nitrate,Urine Negative (Negative); Protein,Urine Negative (Negative); Urobilinogen,Urine 0.2 EU/dl (0.2)
[2023-03-17 17:04] LABS: Cystine Crystals,Urine 3+ /lpf; Squamous Epithelial Cell,Urine Occasional #/hpf (0-5); WBC,Urine Occasional #/hpf (0-3)
== END ==
PROVIDERS: PCP Nurse Practitioner Family; Visit Provider Nurse Practitioner Family
DX: R31.29 Other microscopic hematuria (principal); M54.6 Pain in thoracic spine; R35.0 Frequency of micturition; B95.7 Other staphylococcus as the cause of diseases classified elsewhere
CPT/HCPCS: 81001; 87086; 87088; 87186

== ENCOUNTER 2023-03-18 21:22 | Emergency (ER) | payer OTHER, BC, SELFPAY ==
[2023-03-18 21:24] VITALS: BP 132/89; PULSE 93; RESP 16; TEMP 36.7; O2SAT 100; BMI 23.3
--- NOTE | 2023-03-18 21:40 | XR_ITS ---
PROCEDURE INFORMATION: Exam: XR Chest Exam date and time: 03/18/2023 10:01 PM Age: 42 years old Clinical indication: Other: Palpitations, weakness TECHNIQUE: Imaging protocol: Radiologic exam of the chest. Views: 1 view. COMPARISON: CR XR CHEST EMPLOYEE 02/06/2023 3:26 PM FINDINGS: Lungs: Unremarkable. No consolidation. Pleural spaces: Unremarkable. No pleural effusion. No pneumothorax. Heart/Mediastinum: Unremarkable. No cardiomegaly. Bones/joints: Unremarkable. IMPRESSION: No acute findings.
--- NOTE | 2023-03-18 22:16 | ECG_ITS ---
APPROVED REPORT Exam: Resting ECG HR:82 bpm ECG Measurements Heart Rate 82 AXES UT 158 P 67 QRSd 77 QRS 55 QT 369 T 61 QTc 408 Conclusion SINUS RHYTHM NORMAL ECG UNCONFIRMED REPORT Electronically signed by : Chin Guajardo MD 03/21/2023 16:11:40
[2023-03-18 22:23] LABS: Alanine Aminotransferase 15 U/L (12-78); Albumin Level 4.7 g/dl (3.5-5.0); Albumin/Globulin Ratio 1.1 (1.1-1.8); Alkaline Phosphatase 67 U/L (38-126); Anion Gap 13.7 mEq/L (5-15); Aspartate Amino Transferase 21 U/L (14-36); Bilirubin,Total 0.7 mg/dl (0.2-1.3); Blood Urea Nitrogen 16 mg/dl (7-17); Calcium 9.4 mg/dl (8.4-10.2); Carbon Dioxide 28 mmol/L (22.0-30.0); Chloride 101 mmol/L (98-107); Creatinine Clearance Estimated 104 mL/min (50-200); Estimated Glomerular Filt Rate 91 ml/min (>60); GFR (African American) 111 ML/MIN (>60); Globulin 4.1 g/dL (1.3-3.2); Glucose 141 mg/dl (74-100); Lipase 88 U/L (23-300); Phosphorous 2.9 mg/dl (2.5-4.5); Potassium 3.7 mmoL/L (3.5-5.1); Sodium 139 mmol/L (136-145); Total Protein,Serum 8.8 g/dl (6.3-8.2)
[2023-03-18 22:31] LABS: HCG Qualitative, Serum Negative (Negative)
[2023-03-18 22:40] LABS: T4 (Thyroxine) 13.7 ug/dl (5.53-11.0)
[2023-03-18 22:41] LABS: Troponin I < 0.01 ng/ml (0.00-0.034)
[2023-03-18 22:42] LABS: Basophils % 0.4 % (0.1-2.0); Eosinophils # 0.1 K/mm3 (0.0-0.4); Eosinophils % 0.9 % (0.1-12.0); Hematocrit 37.8 % (37.0-47.0); Hemoglobin 11.8 g/dL (12.2-16.2); Lymphocytes # 1.8 K/mm3 (0.7-4.5); Lymphocytes % 20.7 % (10-50); Mean Corpuscular HGB Conc 31.2 g/dL (31.8-35.4); Mean Corpuscular Hemoglobin 28.4 pg (27.0-31.2); Mean Platelet Volume 12.2 fl (7.4-10.4); Monocytes # 0.5 K/mm3 (0.1-1.0); Monocytes % 6.1 % (1.7-9.3); Neutrophils # 6.4 K/mm3 (1.8-7.8); Neutrophils % 71.9 % (37.0-80.0); Platelet Count 174 K/mm3 (142-424); Red Blood Count 4.15 M/mm3 (4.20-5.40); Red Cell Distribution Width 15.5 % (11.5-17.5); White Blood Count 8.8 K/mm3 (4.8-10.8)
[2023-03-18 22:53] LABS: Thyroid Stimulating Hormone 1.47 uIU/mL (0.465-4.68)
--- NOTE | 2023-03-18 22:59 | HMH.EDGENADL ---
Discharge Plan Disposition Patient Disposition: Home, Self-Care Condition: Good Prescriptions Prescriptions: No Action mecobalamin (vitamin B12) 10,000 mcg recon soln IM WEEKLY cholecalciferol (vitamin D3) 1,250 mcg (50,000 unit) capsule 1,250 mcg PO WEEKLY cholecalciferol (vitamin D3) 50 mcg (2,000 unit) capsule 50 mcg PO DAILY cyanocobalamin (vitamin B-12) 1,000 mcg capsule 1,000 mcg PO DAILY famotidine [Pepcid] 40 mg tablet 40 mg PO DAILY Qty: 14 2RF prednisone 20 mg tablet 20 mg PO BID Qty: 6 0RF bisoprolol fumarate 5 mg tablet 2.5 mg PO DAILY Qty: 30 2RF Referrals Follow up/Referrals: Chin Guajardo MD [Primary Care Provider] - See instructions Activity Restrictions/Add. Instructions Additional Instructions/Restrictions: Recommend searching PubMed for peer-reviewed journal articles regarding the management of alpha gal. Recommend increasing your daily calorie count as much as possible. Please follow-up with your primary care provider. Please return to the emergency department if you develop any new or worsening symptoms or become concerned for your health. Clinical Impressions Clinical Impression: Allergy to alpha-gal, Malnutrition due to starvation Discharge ED Provider: Josafat Orr General Adult HPI <Eloisa Cool, - Last Filed: 03/19/23 00:17> General Chief complaint: Weakness Stated complaint: stomach hurt feels like going yo past out Time Seen by Provider: 03/18/23 21:28 Mode of Arrival: Ambulatory Source of Information: Patient and Spouse Limitations: No Limitations Description of Symptoms (Recalled from ER Triage Doc. by RN): pt reports months of weakness, palpitations, states diet has changed drastically from history of tick bite. states she is rochelle to get 500 calories a day due to being limiteds on what she can eat, states she has lost a lot of weight since November History of Present Illness HPI narrative: This patient is a 42-year-old female with a history of sinus arrhythmia on bisoprolol, alpha gal syndrome with difficulty maintaining adequate intake, and multiple previous evaluations for palpitations and presyncope presenting to the emergency department for evaluation with concern for palpitations and presyncope. She states that she has had issues like this for months now, however became severe today prompting her to come to the emergency department. No recent triggers noted, such as fevers, chills, chest pain, abdominal pain, nausea, vomiting, changes in bowel movements, rashes, or swelling. She states she has been eating her usual diet. She has had significant unintentional weight loss since November. She denies any other concerns at this time. Related Data Home Medications Medication Instructions Recorded Confirmed cholecalciferol (vitamin D3) 1,250 1,250 mcg PO WEEKLY 10/10/22 10/29/22 mcg (50,000 unit) capsule cholecalciferol (vitamin D3) 50 50 mcg PO DAILY 10/10/22 10/29/22 mcg (2,000 unit) capsule mecobalamin (vitamin B12) 10,000 mcg IM WEEKLY 10/10/22 10/29/22 mcg solution for injection cyanocobalamin (vitamin B-12) 1,000 mcg PO DAILY 10/29/22 10/29/22 1,000 mcg capsule Previous Rx's Medication Instructions Recorded bisoprolol fumarate 5 mg tablet 2.5 mg PO DAILY #30 tabs 11/07/22 famotidine 40 mg tablet (Pepcid) 40 mg PO DAILY #14 tabs 11/07/22 prednisone 20 mg tablet 20 mg PO BID pre medicate for 11/07/22 contrast #6 tabs Allergies Allergy/AdvReac Type Severity Reaction Status Date / Time latex [LATEX] Allergy Unknown Verified 10/29/22 14:20 [facility] <Eloisa Cool DO - Last Filed: 03/19/23 00:17> [facility] Disclaimer: The information contained in this section may have been updated after the patient was seen, as this information can be updated by other users. Surgical History Delivery by section H/O tubal ligation H/O wisdom tooth extraction S
[2023-03-18 23:31] LABS: Coronavirus 19, PCR Not Detected (NotDetected); Influenza A, PCR Not Detected (NotDetected); Influenza B, PCR Not Detected (NotDetected)
--- NOTE | 2023-03-18 23:33 | PC.NURSE ---
jamie swabbed pt, sent to lab. Gave ice water.
--- NOTE | 2023-03-19 01:19 | PC.NURSE ---
lab called to obtain repeat troponin. states to dc continued serial trop. lab notified
[2023-03-19 01:58] VITALS: BP 107/69; PULSE 85; RESP 14; TEMP 36.8; O2SAT 97
[2023-03-19 20:35] LABS: Folate 7.05 ng/mL; Vitamin B12 328 pg/mL (239-931)
[2023-03-19 22:48] LABS: Iron 62 ug/dL (37-170)
[2023-03-19 22:58] LABS: Total Iron Binding Capacity 493 ug/dL (265-497)
[2023-03-19 23:25] LABS: Ferritin 5.17 ng/ml (6.24-137)
[2023-03-20 11:35] LABS: 25-OH Vitamin D, Total 41.3 ng/mL (30-100)
== END 2023-03-19 02:06 | disposition home or self-care (01) ==
PROVIDERS: Emergency Medicine; Emergency Provider Emergency Medicine; PCP Internal Medicine Adolescent Medicine
DX: T73.0XXA Starvation, initial encounter (principal); E74.29 Other disorders of galactose metabolism
CPT/HCPCS: 71045; 80053; 82306; 82607; 82652; 82728; 82746; 83540; 83550; 83690; 83735; 84100; 84436; 84443; 84484; 84703; 85025; 87636; 93005; 96360; 96361; 99285

== ENCOUNTER → 2023-03-24 14:33 | Outpatient (CLI) | payer OTHER, BC, SELFPAY ==
--- NOTE | 2023-03-24 14:44 | CT_ITS ---
FINAL REPORT TECHNIQUE: Axial images through the abdomen and pelvis were performed without contrast. This study was performed with techniques to keep radiation doses as low as reasonably achievable, (ALARA). Individualized dose reduction techniques using automated exposure control or adjustment of mA and/or kV according to the patient's size were employed. CLINICAL HISTORY: WEIGHT LOSS,LOWER ABD PAIN,HEMATURIA COMPARISON: 07/29/2020 FINDINGS: Abdomen: There is a calcified granuloma at the right lung base. The liver parenchyma is homogeneous. The gallbladder is contracted. The spleen, pancreas, adrenals and kidneys are unremarkable. Pelvis: There is a large amount of stool throughout the colon. The urinary bladder is unremarkable. The appendix is not visualized. The uterus is present lies eccentric to the left. There is no pelvic mass or inflammation. IMPRESSION: No kidney stone or obstruction. Large amount of stool. Reviewed, Interpreted and Dictated by Allan Mcfarland MD Transcribed by Cici Pereira Authenticated and [facility]
== END ==
PROVIDERS: PCP Internal Medicine Adolescent Medicine; Visit Provider Nurse Practitioner Family
DX: R31.29 Other microscopic hematuria (principal); R63.4 Abnormal weight loss; R10.30 Lower abdominal pain, unspecified; Z68.28 Body mass index [BMI] 28.0-28.9, adult
CPT/HCPCS: 74176

== ENCOUNTER → 2023-06-20 14:38 | Outpatient (CLI) | payer OTHER, BC, SELFPAY ==
--- NOTE | 2023-06-20 15:04 | MM_ITS ---
PROCEDURE INFORMATION: Exam: MG Bilateral Screening 3D Mammography Exam date and time: 06/20/2023 3:14 PM Age: 43 years old Clinical indication: Screening examination TECHNIQUE: Imaging protocol: Bilateral Screening tomosynthesis and 2D mammography including computer-aided detection (CAD) when performed. COMPARISON: 1. MG MM DIG MAMM DX UNILAT LT CAD 05/24/2022 3:27 PM 2. MG MM DIG SCREENING MAMM BI W/CAD 05/21/2022 3:10 PM FINDINGS: MAMMOGRAPHY: Breast composition: The breasts are extremely dense, which lowers the sensitivity of mammography. Mass: None. Architectural distortion: None. Calcifications: No suspicious calcifications. Asymmetric density: None. Skin thickening: None. Axillary adenopathy: None. IMPRESSION: No mammographic evidence of malignancy. Annual screening is recommended unless otherwise clinically indicated. ASSESSMENT: BI-RADS Category 1: Negative
== END ==
PROVIDERS: PCP Nurse Practitioner Family; Visit Provider Nurse Practitioner Family
DX: Z12.31 Encounter for screening mammogram for malignant neoplasm of breast (principal)
CPT/HCPCS: 77063; 77067

== ENCOUNTER 2023-09-30 15:11 | Outpatient (CLI) | payer OTHER, BC, SELFPAY ==
[2023-09-30 15:15] LABS: Microscopic, Urine URINE MICROSCOPIC (MICROSCOPIC)
[2023-09-30 15:33] LABS: Basophils # 0.1 K/mm3 (0-0.2); Basophils % 0.5 % (0.1-2.0); Eosinophils # 0.2 K/mm3 (0.0-0.4); Eosinophils % 2.2 % (0.1-12.0); Hematocrit 33.4 % (37.0-47.0); Hemoglobin 10.5 g/dL (12.2-16.2); Lymphocytes # 2.2 K/mm3 (0.7-4.5); Lymphocytes % 21.4 % (10-50); Mean Corpuscular HGB Conc 31.4 g/dL (31.8-35.4); Mean Corpuscular Hemoglobin 28.9 pg (27.0-31.2); Mean Corpuscular Volume 92.1 fl (81-99); Mean Platelet Volume 11.8 fl (7.4-10.4); Monocytes # 0.9 K/mm3 (0.1-1.0); Monocytes % 8.5 % (1.7-9.3); Neutrophils % 67.4 % (37.0-80.0); Platelet Count 179 K/mm3 (142-424); Red Blood Count 3.62 M/mm3 (4.20-5.40); Red Cell Distribution Width 15.9 % (11.5-17.5); White Blood Count 10.4 K/mm3 (4.8-10.8)
[2023-09-30 15:54] LABS: Appearance,Urine CLEAR (Clear); Bilirubin,Urine Negative (Negative); Blood, Urine 2+ (Negative); Color,Urine YELLOW (Yellow); Glucose,Urine (UA) Negative (Negative); Ketones,Urine Negative (Negative); Leukocyte Esterase,Urine Negative (Negative); Nitrate,Urine Negative (Negative); Protein,Urine Negative (Negative); Urobilinogen,Urine 0.2 EU/dl (0.2)
[2023-09-30 16:41] LABS: Free T4 (Free Thyroxine) 1.99 ng/dl (0.78-2.19)
[2023-09-30 16:47] LABS: WBC,Urine Occasional #/hpf (0-3)
[2023-09-30 16:48] LABS: Bacteria,Urine Trace /lpf
[2023-09-30 18:42] LABS: Chloride 101 mmol/L (98-107)
[2023-09-30 18:43] LABS: Potassium 3.8 mmoL/L (3.5-5.1); Sodium 136 mmol/L (136-145)
[2023-09-30 18:45] LABS: Alanine Aminotransferase 16 U/L (12-78); Alkaline Phosphatase 81 U/L (38-126); Aspartate Amino Transferase 25 U/L (14-36); Bilirubin,Total 0.5 mg/dl (0.2-1.3); Blood Urea Nitrogen 22 mg/dl (7-17); Estimated Glomerular Filt Rate 78 ml/min (>60); GFR (African American) 94 ML/MIN (>60)
[2023-09-30 18:46] LABS: Albumin Level 3.9 g/dl (3.5-5.0); Albumin/Globulin Ratio 1.3 (1.1-1.8); Anion Gap 10.8 mEq/L (5-15); Calcium 8.9 mg/dl (8.4-10.2); Carbon Dioxide 28 mmol/L (22.0-30.0); Globulin 3.1 g/dL (1.3-3.2); Glucose 88 mg/dl (74-100); Iron 33 ug/dL (37-170)
[2023-09-30 19:03] LABS: Total Iron Binding Capacity 441 ug/dL (265-497)
[2023-09-30 19:17] LABS: Thyroid Stimulating Hormone 1.22 uIU/mL (0.465-4.68)
[2023-09-30 19:22] LABS: Ferritin 15.4 ng/ml (6.24-137)
[2023-09-30 19:36] LABS: Vitamin B12 248 pg/mL (239-931)
== END 2023-09-30 23:59 ==
LOC: LAB 15:11
PROVIDERS: PCP Nurse Practitioner Family; Visit Provider Nurse Practitioner Family
DX: Z00.00 Encounter for general adult medical examination without abnormal findings (principal); R31.9 Hematuria, unspecified; D50.9 Iron deficiency anemia, unspecified
CPT/HCPCS: 36415; 80053; 81001; 82607; 82728; 83540; 83550; 84439; 84443; 85025

== ENCOUNTER 2023-10-08 13:49 | Outpatient (CLI) | payer OTHER, BC, SELFPAY ==
[2023-10-08 14:28] LABS: Basophils # 0.1 K/mm3 (0-0.2); Basophils % 0.9 % (0.1-2.0); Eosinophils # 0.2 K/mm3 (0.0-0.4); Eosinophils % 2.4 % (0.1-12.0); Hematocrit 33.5 % (37.0-47.0); Hemoglobin 10.4 g/dL (12.2-16.2); Lymphocytes # 2.4 K/mm3 (0.7-4.5); Lymphocytes % 25.3 % (10-50); Mean Corpuscular HGB Conc 30.9 g/dL (31.8-35.4); Mean Corpuscular Hemoglobin 28.7 pg (27.0-31.2); Mean Corpuscular Volume 92.9 fl (81-99); Mean Platelet Volume 10.7 fl (7.4-10.4); Monocytes # 0.5 K/mm3 (0.1-1.0); Monocytes % 5.3 % (1.7-9.3); Neutrophils # 6.2 K/mm3 (1.8-7.8); Neutrophils % 66.2 % (37.0-80.0); Platelet Count 254 K/mm3 (142-424); Red Blood Count 3.61 M/mm3 (4.20-5.40); White Blood Count 9.4 K/mm3 (4.8-10.8)
[2023-10-08 14:43] LABS: Iron 39 ug/dL (37-170)
[2023-10-08 14:53] LABS: Total Iron Binding Capacity 395 ug/dL (265-497)
[2023-10-08 15:20] LABS: Ferritin 5.03 ng/ml (6.24-137)
== END 2023-10-08 23:59 ==
LOC: LAB 13:49
PROVIDERS: PCP Internal Medicine Adolescent Medicine; Visit Provider Internal Medicine Medical Oncology
DX: D50.0 Iron deficiency anemia secondary to blood loss (chronic) (principal)
CPT/HCPCS: 36415; 82728; 83540; 83550; 85025

== ENCOUNTER 2023-11-06 14:41 | Outpatient (CLI) | payer OTHER, BC, SELFPAY ==
[2023-11-06 16:14] LABS: 25-OH Vitamin D, Total 31.3 ng/mL (30-100)
[2023-11-13 15:16] LABS: Miscellaneous Test SCANNED IMAGE
[2023-11-14 11:29] LABS: F002-IgE Milk <0.10; F027-IgE Beef 0.13 kU/L
[2023-11-14 11:30] LABS: F026-IgE Pork <0.10
== END 2023-11-06 23:59 | disposition home or self-care (01) ==
LOC: LAB 14:42
PROVIDERS: PCP Internal Medicine Adolescent Medicine; Visit Provider Nurse Practitioner
DX: T78.1XXA Other adverse food reactions, not elsewhere classified, initial encounter (principal); D50.0 Iron deficiency anemia secondary to blood loss (chronic); L50.8 Other urticaria
CPT/HCPCS: 36415; 82306; 86003

== ENCOUNTER 2023-12-05 16:31 | Emergency (ER) | payer OTHER, BC, SELFPAY ==
[2023-12-05] VITALS (7 sets, daily range): BP systolic 115–141; BP diastolic 73–83; PULSE 80–100; RESP 16–18; TEMP 36.5–37.3; O2SAT 100; BMI 25.0
[2023-12-05 17:01] LABS: Chloride 104 mmol/L (98-107); Potassium 3.8 mmoL/L (3.5-5.1); Sodium 138 mmol/L (136-145)
[2023-12-05 17:03] LABS: Blood Urea Nitrogen 23 mg/dl (7-17); HCG Qualitative, Serum Negative (Negative)
[2023-12-05 17:04] LABS: Alanine Aminotransferase 19 U/L (12-78); Albumin Level 4.2 g/dl (3.5-5.0); Albumin/Globulin Ratio 1.1 (1.1-1.8); Alkaline Phosphatase 85 U/L (38-126); Anion Gap 12.8 mEq/L (5-15); Aspartate Amino Transferase 27 U/L (14-36); Bilirubin,Total 0.6 mg/dl (0.2-1.3); Calcium 9.2 mg/dl (8.4-10.2); Carbon Dioxide 25 mmol/L (22.0-30.0); Creatinine Clearance Estimated 154 mL/min (50-200); Estimated Glomerular Filt Rate 134 ml/min (>60); GFR (African American) 162 ML/MIN (>60); Globulin 3.9 g/dL (1.3-3.2); Glucose 113 mg/dl (74-100); Total Protein,Serum 8.1 g/dl (6.3-8.2)
[2023-12-05 17:05] LABS: Basophils % 0.2 % (0.1-2.0); Eosinophils # 0.1 K/mm3 (0.0-0.4); Eosinophils % 0.6 % (0.1-12.0); Hematocrit 35.8 % (37.0-47.0); Hemoglobin 11.2 g/dL (12.2-16.2); Lymphocytes # 0.8 K/mm3 (0.7-4.5); Lymphocytes % 6.8 % (10-50); Mean Corpuscular HGB Conc 31.2 g/dL (31.8-35.4); Mean Corpuscular Hemoglobin 28.5 pg (27.0-31.2); Mean Corpuscular Volume 91.2 fl (81-99); Mean Platelet Volume 12.1 fl (7.4-10.4); Monocytes # 0.4 K/mm3 (0.1-1.0); Monocytes % 3.4 % (1.7-9.3); Neutrophils # 10.6 K/mm3 (1.8-7.8); Platelet Count 209 K/mm3 (142-424); Red Blood Count 3.93 M/mm3 (4.20-5.40); Red Cell Distribution Width 16.5 % (11.5-17.5); White Blood Count 11.9 K/mm3 (4.8-10.8)
[2023-12-05 17:08] LABS: Coronavirus 19, PCR Not Detected (NotDetected); Influenza A, PCR Not Detected (NotDetected); Influenza B, PCR Not Detected (NotDetected)
[2023-12-05 17:10] LABS: MANUAL DIFFERENTIAL MANUAL DIFFERENTIAL (MANUAL DIFF)
[2023-12-05 17:21] LABS: Lymphocytes % 8 % (10-50); Monocytes % 1 % (2-9); Neutrophils % 91 % (42-76); Platelet Estimate Normal; RBC Morphology Normal; Total Cells Counted 100
--- NOTE | 2023-12-05 17:49 | PC.NURSE ---
DR HENRY AT BEDSIDE
--- NOTE | 2023-12-05 17:55 | HMH.EDGENADL ---
Discharge Plan Disposition Patient Disposition: Home, Self-Care Prescriptions Prescriptions: No Action mecobalamin (vitamin B12) 10,000 mcg recon soln IM WEEKLY cholecalciferol (vitamin D3) 1,250 mcg (50,000 unit) capsule 1,250 mcg PO WEEKLY cholecalciferol (vitamin D3) 50 mcg (2,000 unit) capsule 50 mcg PO DAILY cyanocobalamin (vitamin B-12) 1,000 mcg capsule 1,000 mcg PO DAILY famotidine [Pepcid] 40 mg tablet 40 mg PO DAILY Qty: 14 2RF prednisone 20 mg tablet 20 mg PO BID Qty: 6 0RF bisoprolol fumarate 5 mg tablet 2.5 mg PO DAILY Qty: 30 2RF Referrals Follow up/Referrals: Chin Guajardo MD [Primary Care Provider] - See instructions Activity Restrictions/Add. Instructions Additional Instructions/Restrictions: No emergent medical condition identified today. Please return to the emergency department if you change your mind on receiving other medications other than IV fluids or you have significant worsening of your abdominal pain. Your symptoms are most likely secondary to viral gastroenteritis. Clinical Impressions Clinical Impression: Nausea vomiting and diarrhea Instructions Patient Instructions: DI for Acute Abdominal Pain Discharge ED Provider: Capri More General Adult HPI General Chief complaint: Abdominal Pain Stated complaint: vomiting, abd pain, diarrhea Time Seen by Provider: 12/05/23 17:49 Mode of Arrival: Ambulatory Source of Information: Patient Limitations: No Limitations Description of Symptoms (Recalled from ER Triage Doc. by RN): pt presents to ED c/o n/v/d that started at 1330 this date. pt states prior to n/v she did experience abdominal pain. pt denies any fever. 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 History of Present Illness HPI narrative: Patient is a 43-year-old female presenting today with nausea vomiting diarrhea that started several hours ago and she has been vomiting every 20 to 30 minutes. No sick contacts no fevers no significant abdominal pain. She does have a history of alpha gal from a historical standpoint and states that she cannot have any medications that could be derived from mammals. Related Data Home Medications Medication Instructions Recorded Confirmed cholecalciferol (vitamin D3) 1,250 1,250 mcg PO WEEKLY 10/10/22 10/08/23 mcg (50,000 unit) capsule cholecalciferol (vitamin D3) 50 50 mcg PO DAILY 10/10/22 10/08/23 mcg (2,000 unit) capsule mecobalamin (vitamin B12) 10,000 mcg IM WEEKLY 10/10/22 10/08/23 mcg solution for injection cyanocobalamin (vitamin B-12) 1,000 mcg PO DAILY 10/29/22 10/08/23 1,000 mcg capsule Previous Rx's Medication Instructions Recorded bisoprolol fumarate 5 mg tablet 2.5 mg (1/2 x 5 mg) PO DAILY #30 11/07/22 tabs famotidine 40 mg tablet (Pepcid) 40 mg PO DAILY #14 tabs 11/07/22 prednisone 20 mg tablet 20 mg PO BID pre medicate for 11/07/22 contrast #6 tabs Allergies Allergy/AdvReac Type Severity Reaction Status Date / Time latex [LATEX] Allergy Unknown Unknown Verified 10/09/23 13:47 allergy reaction TOO GAL Allergy Severe Anaphylaxis Uncoded 10/09/23 13:47 [facility] Disclaimer: The information contained in this section may have been updated after the patient was seen, as this information can be updated by other users. Surgical History H/O wisdom tooth extraction H/O tubal ligation Delivery by section Social History Smoking Status: Never smoker second hand exposure: No alcohol intake: never substance use type: denies use current occupational status: employed Travel in the last 8 weeks: None household members: spouse housing: house ROS Obtained: Yes All systems reviewed & no additional complaints except as documented Physical Exam General General appearance: alert and in no apparent distress Respiratory Respiratory exam: Present normal lung sounds bilaterally; Absent respiratory distress Cardiovascular Cardiovascular exam: Present regular rate and normal rhythm Abdominal Exam Abdominal exam: Present soft; Absent distention or tenderness Neurological Exam Neurological exam: Present alert and oriented X3 Medical Decision Making Angel Inquiry Pt receiving controlled substance: No Vital Signs: 12/05/23 16:32 12/05/23 17:30 12/05/23 18:00 Temperature 97.7 F Temperature Source Oral Pulse Rate 80 82 Pulse Rate [Right Radial] 85 Respiratory Rate 18 16 Blood Pressure 118/73 127/77 Blood Pressure [Right Arm] 121/81 Blood Pressure Mean 90 Blood Pressure Mean [Right Arm] 94 Blood Pressure Source [Right Arm] Automatic Cuff 02 Sat by Pulse Oximetry 100 100 100 Oxygen Delivery Method Room Air 12/05/23 18:30 12/05/23 18:32 12/05/23 19:00 Temperature Temperature Source Pulse Rate 86 83 89 Pulse Rate [Right Radial] Respiratory Rate 18 16 Blood Pressure 115/74 122/74 122/74 Blood Pressure [Right Arm] Blood Pressure Mean 87 96 Blood Pressure Mean [Right Arm] Blood Pressure Source [Right Arm] 02 Sat by Pulse Oximetry 100 100 100 Oxygen Delivery Method Lab Data Lab results reviewed: Yes I reviewed the patient's lab results. Lab Results 12/05/23 16:42: WBC 11.9 H, RBC 3.93 L, Hgb 11.2 L, Hct 35.8 L, MCV 91.2, MCH 28.5, MCHC 31.2 L, RDW 16.5, Plt Count 209, MPV 12.1 H, Neut % (Auto) 89.0 H, Lymph % (Auto) 6.8 L, Hartley % (Auto) 3.4, Eos % (Auto) 0.6, Baso % (Auto) 0.2, Neut # (Auto) 10.6 H, Lymph # (Auto) 0.8, Hartley # (Auto) 0.4, Eos # (Auto) 0.1, Baso # (Auto) 0.0, Total Counted 100, Neutrophils % (Manual) 91 H, Lymphocytes % (Manual) 8 L, Monocytes % (Manual) 1 L, Platelet Estimate Normal, RBC Morphology Normal, Sodium 138, Potassium 3.8, Chloride 104, Carbon Dioxide 25, Anion Gap 12.8, BUN 23 H, Creatinine 0.50 L, Estimated Creat Clear 154, Estimated GFR 134, Est GFR ( Amer) 162, Glucose 113 H, Calcium 9.2, Total Bilirubin 0.6, AST 27, ALT 19, Alkaline Phosphatase 85, Total Protein 8.1, Albumin 4.2, Globulin 3.9 H, Albumin/Globulin Ratio 1.1, Serum HCG, Qual Negative 12/05/23 16:53: SARS-CoV-2 (PCR) Not detected, Influenza A Untype (PCR) Not detected, Influenza Type B (PCR) Not detected 12/05/23 16:42 12/05/23 16:42 Orders (Tests/Meds): ED MEDICATIONS Generic Name Dose Route Start Last Admin Trade Name Frebrooklynn PRN Reason Stop Dose Admin Sodium Chloride 10 ml 12/05/23 16:45 Sodium Chloride 0.9% 10ml Flush Syringe IV 01/04/24 16:44 NEEDED PRN Maintain IV Site Discontinued Medications Generic Name Dose Route Start Last Admin Trade Name Freq PRN Reason Stop Dose Admin Lactated Ringer's 1,000 mls @ 999 mls/hr 12/05/23 18:00 12/05/23 18:04 Lactated Ringer's 1000 Ml Bag IV 12/05/23 19:00 Not Given .Q1H1M SHILOH Sodium Chloride 1,000 mls @ 999 mls/hr 12/05/23 18:02 12/05/23 18:04 Sod Chlor 0.9% 1000ml Bag IV 12/05/23 19:02 999 mls/hr .Q1H1M ONE Administration ORDERS Category Date Time Status Complete Blood Count Auto Diff Stat Lab 12/05/23 16:42 Completed Comprehensive Metabolic Panel Stat Lab 12/05/23 16:42 Completed HCG Qualitative, Serum Stat Lab 12/05/23 16:42 Completed Rapid PCR Covid and Flu A/B Stat Lab 12/05/23 16:53 Completed Urinalysis and Microscopic Stat Lab 12/05/23 16:45 Ordered Medical Decision Narrative: Well-appearing 43-year-old female with a benign abdominal exam no significant dehydration presents today with nausea vomiting diarrhea most likely viral in nature. This is not consistent with surgical emergency. Patient was offered pain medicine as well as nausea medicine however she refused this as she states she cannot have any medications that could be derived from mammals. She was willing to take IV fluids. Labs unremarkable specifically no evidence of eosinophilia. Will reassess after her IV fluids. Reassessment 723 patient feeling better tolerating p.o. ready to go home. She still declines wanting any medication as she is concerned about animal-based proteins. Serial exams are benign this is not consistent with a surgical emergency patient was discharged in stable condition with return precautions emphasized. Critical Care Critical Care Time Critical Care Time: No
[2023-12-05] MEDS: 0.9 % SODIUM CHLORIDE 1000ML 1,000 ML 999 ML IV (18:04)
--- NOTE | 2023-12-05 18:10 | PC.NURSE ---
pt vomited x 3 since arrival to ED. pt given cold wash cloth and warm blanket.
--- NOTE | 2023-12-05 19:01 | PC.NURSE ---
fluid challenge at this time.
== END 2023-12-05 19:32 | disposition home or self-care (01) ==
PROVIDERS: Emergency Provider Student in an Organized Health Care Education/Training Program; PCP Internal Medicine Adolescent Medicine
DX: R11.2 Nausea with vomiting, unspecified (principal); R19.7 Diarrhea, unspecified; Z91.014 Allergy to mammalian meats
CPT/HCPCS: 80053; 84703; 85007; 85025; 87636; 96360; 99284

== ENCOUNTER 2023-12-08 15:16 | Outpatient (CLI) | payer OTHER, BC, SELFPAY ==
--- NOTE | 2023-12-08 15:27 | CT_ITS ---
FINAL REPORT CLINICAL HISTORY: RUQ PAIN,N/V; states vomiting since Friday COMPARISON: 03/24/2023 FINDINGS: Axial CT images of the abdomen and pelvis were obtained without intravenous contrast. Coronal reformatted images were also obtained.This study was performed with techniques to keep radiation doses as low as reasonably achievable (ALARA). Individualized dose reduction techniques using automated exposure control or adjustment of mA and/or kV according to the patient''s size were employed. Abdomen:The lung bases are clear. There is no evidence of renal stone or hydronephrosis. There is mild nonspecific gallbladder wall thickening. The liver, spleen and pancreas have an unremarkable, unenhanced appearance. No mass or adenopathy is seen. No inflammatory process is identified. The stomach is fluid-filled and moderately distended. Pelvis: Images of the pelvis reveal no evidence of ureteral dilation or ureteral stone. There is a small amount of pelvic free fluid, which may be physiologic or reactive. There is a small right ovarian cyst. IMPRESSION: Fluid-filled moderately distended stomach. Nonspecific gallbladder wall thickening. Small amount of physiologic or reactive pelvic free fluid. Small right ovarian cyst. Reviewed, Interpreted and Dictated by Kenton Ruiz III, MD Transcribed by Cici Pereira Authenticated and [facility]
[2023-12-08 17:04] LABS: Basophils % 0.5 % (0.1-2.0); Eosinophils % 0.6 % (0.1-12.0); Hemoglobin 11.2 g/dL (12.2-16.2); Lymphocytes # 1.6 K/mm3 (0.7-4.5); Lymphocytes % 26.7 % (10-50); Mean Corpuscular HGB Conc 31.2 g/dL (31.8-35.4); Mean Corpuscular Hemoglobin 28.4 pg (27.0-31.2); Mean Corpuscular Volume 91.1 fl (81-99); Mean Platelet Volume 11.5 fl (7.4-10.4); Monocytes # 0.5 K/mm3 (0.1-1.0); Monocytes % 9.2 % (1.7-9.3); Neutrophils # 3.7 K/mm3 (1.8-7.8); Neutrophils % 63.1 % (37.0-80.0); Platelet Count 205 K/mm3 (142-424); Red Blood Count 3.95 M/mm3 (4.20-5.40); Red Cell Distribution Width 16.6 % (11.5-17.5); White Blood Count 5.9 K/mm3 (4.8-10.8)
[2023-12-08 17:42] LABS: Alanine Aminotransferase 18 U/L (12-78); Albumin Level 4.1 g/dl (3.5-5.0); Albumin/Globulin Ratio 1.2 (1.1-1.8); Alkaline Phosphatase 73 U/L (38-126); Amylase 37 U/L (30-110); Anion Gap 15.8 mEq/L (5-15); Aspartate Amino Transferase 31 U/L (14-36); Bilirubin,Total 0.6 mg/dl (0.2-1.3); Blood Urea Nitrogen 14 mg/dl (7-17); Calcium 9.1 mg/dl (8.4-10.2); Carbon Dioxide 24 mmol/L (22.0-30.0); Chloride 101 mmol/L (98-107); Estimated Glomerular Filt Rate 109 ml/min (>60); GFR (African American) 131 ML/MIN (>60); Globulin 3.4 g/dL (1.3-3.2); Glucose 86 mg/dl (74-100); Lipase 79 U/L (23-300); Potassium 3.8 mmoL/L (3.5-5.1); Sodium 137 mmol/L (136-145); Total Protein,Serum 7.5 g/dl (6.3-8.2)
[2023-12-08 18:14] LABS: Iron 40 ug/dL (37-170)
[2023-12-08 18:24] LABS: Total Iron Binding Capacity 450 ug/dL (265-497)
[2023-12-08 18:51] LABS: Ferritin 15.8 ng/ml (6.24-137)
== END 2023-12-08 23:59 | disposition home or self-care (01) ==
PROVIDERS: Internal Medicine Medical Oncology; PCP Nurse Practitioner Family; Visit Provider Nurse Practitioner Family
DX: R10.11 Right upper quadrant pain (principal); R11.2 Nausea with vomiting, unspecified; D64.9 Anemia, unspecified
CPT/HCPCS: 36415; 74176; 80053; 82150; 82728; 83540; 83550; 83690; 85025

== ENCOUNTER 2023-12-10 07:23 | Outpatient (CLI) | payer OTHER, BC, SELFPAY ==
--- NOTE | 2023-12-10 07:25 | US_ITS ---
FINAL REPORT CLINICAL HISTORY: CHOLECYSTITIS COMPARISON: None FINDINGS: Sonographic images of the right upper quadrant were obtained. The pancreas is partially obscured.The liver has an unremarkable appearance.The gallbladder appears normal without evidence of gallstones.There is no evidence of biliary ductal dilatation.The common duct measures 5 mm. Limited images of the right kidney are unremarkable. IMPRESSION: Unremarkable right upper quadrant ultrasound. Reviewed, Interpreted and Dictated by Kenton Ruiz III, MD Transcribed by Cici Pereira Authenticated and [facility]
== END 2023-12-10 23:59 | disposition home or self-care (01) ==
LOC: RAD 07:24
PROVIDERS: PCP Nurse Practitioner Family; Visit Provider Nurse Practitioner Family
DX: K81.9 Cholecystitis, unspecified (principal)
CPT/HCPCS: 76705

== ENCOUNTER 2024-03-30 07:07 | Outpatient (CLI) | payer OTHER, BC, SELFPAY ==
[2024-03-30 08:06] LABS: Hematocrit 33.7 % (37.0-47.0); Hemoglobin 10.1 g/dL (12.2-16.2); Mean Corpuscular HGB Conc 29.9 g/dL (31.8-35.4); Mean Corpuscular Hemoglobin 28.2 pg (27.0-31.2); Mean Corpuscular Volume 94.5 fl (81-99); Platelet Count 165 K/mm3 (142-424); Red Blood Count 3.57 M/mm3 (4.20-5.40); Red Cell Distribution Width 16.3 % (11.5-17.5); White Blood Count 5.8 K/mm3 (4.8-10.8)
[2024-03-30 08:31] LABS: Chloride 108 mmol/L (98-107)
[2024-03-30 08:32] LABS: Potassium 4.4 mmoL/L (3.5-5.1); Sodium 137 mmol/L (136-145)
[2024-03-30 08:34] LABS: Alanine Aminotransferase 12 U/L (12-78); Albumin/Globulin Ratio 1.3 (1.1-1.8); Anion Gap 7.4 mEq/L (5-15); Aspartate Amino Transferase 21 U/L (14-36); Blood Urea Nitrogen 20 mg/dl (7-17); Carbon Dioxide 26 mmol/L (22.0-30.0); Estimated Glomerular Filt Rate 109 ml/min (>60); GFR (African American) 131 ML/MIN (>60); Globulin 3.2 g/dL (1.3-3.2); Total Protein,Serum 7.2 g/dl (6.3-8.2)
[2024-03-30 08:35] LABS: Alkaline Phosphatase 61 U/L (38-126); Bilirubin,Total 0.6 mg/dl (0.2-1.3); Chol/HDL Ratio 3.3 (1-3.5); Cholesterol 168 mg/dl (140-200); Glucose 81 mg/dl (74-100); HDL Cholesterol 51 mg/dl (40-60); Triglycerides 45 mg/dl (30-150); VLDL Cholesterol 9 mg/dL (0-40)
[2024-03-30 08:46] LABS: Direct LDL Cholesterol 93.73 mg/dL (100-129)
[2024-03-30 08:51] LABS: Free T4 (Free Thyroxine) 1.07 ng/dl (0.78-2.19)
[2024-03-30 09:06] LABS: Thyroid Stimulating Hormone 1.58 uIU/mL (0.465-4.68)
[2024-03-30 10:21] LABS: Vitamin B12 191 pg/mL (239-931)
[2024-03-30 10:27] LABS: Folate 6.76 ng/mL
== END 2024-03-30 23:59 | disposition home or self-care (01) ==
LOC: LAB 07:07
PROVIDERS: PCP Internal Medicine Adolescent Medicine; Visit Provider Nurse Practitioner Obstetrics & Gynecology
DX: Z01.419 Encounter for gynecological examination (general) (routine) without abnormal findings (principal); Z01.89 Encounter for other specified special examinations; Z91.018 Allergy to other foods
CPT/HCPCS: 36415; 80053; 80061; 82607; 82746; 84439; 84443; 85027

== ENCOUNTER 2024-05-05 15:01 | Outpatient (CLI) | payer OTHER, BC, SELFPAY ==
[2024-05-10 09:36] LABS: Miscellaneous Test SCANNED IMAGE
== END 2024-05-05 23:59 | disposition home or self-care (01) ==
LOC: LAB 15:02
PROVIDERS: PCP Internal Medicine Adolescent Medicine; Visit Provider Allergy & Immunology
DX: R10.9 Unspecified abdominal pain (principal); Z91.018 Allergy to other foods
CPT/HCPCS: 36415; 86008

== ENCOUNTER 2024-07-20 15:05 | Outpatient (CLI) | payer OTHER, BC, SELFPAY ==
[2024-07-20 15:35] LABS: Basophils # 0.1 K/mm3 (0-0.2); Basophils % 0.9 % (0.1-2.0); Eosinophils # 0.1 K/mm3 (0.0-0.4); Eosinophils % 1.3 % (0.1-12.0); Hematocrit 31.7 % (37.0-47.0); Hemoglobin 9.7 g/dL (12.2-16.2); Lymphocytes # 2.2 K/mm3 (0.7-4.5); Lymphocytes % 26.6 % (10-50); Mean Corpuscular HGB Conc 30.6 g/dL (31.8-35.4); Mean Corpuscular Hemoglobin 26.8 pg (27.0-31.2); Mean Corpuscular Volume 87.6 fl (81-99); Mean Platelet Volume 14.6 fl (7.4-10.4); Monocytes # 0.8 K/mm3 (0.1-1.0); Monocytes % 9.4 % (1.7-9.3); Neutrophils % 61.6 % (37.0-80.0); Platelet Count 166 K/mm3 (142-424); Red Blood Count 3.62 M/mm3 (4.20-5.40); Red Cell Distribution Width 17.1 % (11.5-17.5); White Blood Count 8.2 K/mm3 (4.8-10.8)
[2024-07-20 16:03] LABS: Iron 54 ug/dL (37-170)
[2024-07-20 16:12] LABS: Total Iron Binding Capacity 509 ug/dL (265-497)
[2024-07-20 16:39] LABS: Ferritin 4.39 ng/ml (6.24-137)
== END 2024-07-20 23:59 | disposition home or self-care (01) ==
LOC: LAB 15:06
PROVIDERS: PCP Internal Medicine Adolescent Medicine; Visit Provider Internal Medicine Medical Oncology
DX: D50.0 Iron deficiency anemia secondary to blood loss (chronic) (principal)
CPT/HCPCS: 36415; 82728; 83540; 83550; 85025

== ENCOUNTER 2024-07-28 14:36 | Outpatient (CLI) | payer OTHER, BC, SELFPAY ==
[2024-07-28 15:04] LABS: Basophils # 0.1 K/mm3 (0-0.2); Basophils % 0.6 % (0.1-2.0); Eosinophils # 0.2 K/mm3 (0.0-0.4); Eosinophils % 2.6 % (0.1-12.0); Hematocrit 32.5 % (37.0-47.0); Lymphocytes # 2.3 K/mm3 (0.7-4.5); Lymphocytes % 26.4 % (10-50); Mean Corpuscular HGB Conc 30.8 g/dL (31.8-35.4); Mean Corpuscular Hemoglobin 27.2 pg (27.0-31.2); Mean Corpuscular Volume 88.3 fl (81-99); Mean Platelet Volume 13.9 fl (7.4-10.4); Monocytes # 0.8 K/mm3 (0.1-1.0); Monocytes % 8.7 % (1.7-9.3); Neutrophils # 5.4 K/mm3 (1.8-7.8); Neutrophils % 61.5 % (37.0-80.0); Platelet Count 165 K/mm3 (142-424); Red Blood Count 3.68 M/mm3 (4.20-5.40); Red Cell Distribution Width 17.4 % (11.5-17.5); White Blood Count 8.7 K/mm3 (4.8-10.8)
[2024-07-28 15:43] LABS: Alanine Aminotransferase 15 U/L (12-78); Albumin Level 4.3 g/dl (3.5-5.0); Albumin/Globulin Ratio 1.5 (1.1-1.8); Alkaline Phosphatase 60 U/L (38-126); Anion Gap 13.2 mEq/L (5-15); Aspartate Amino Transferase 24 U/L (14-36); Blood Urea Nitrogen 24 mg/dl (7-17); Calcium 9.2 mg/dl (8.4-10.2); Carbon Dioxide 27 mmol/L (22.0-30.0); Chloride 103 mmol/L (98-107); Estimated Glomerular Filt Rate 78 ml/min (>60); GFR (African American) 94 ML/MIN (>60); Globulin 2.8 g/dL (1.3-3.2); Glucose 83 mg/dl (74-100); Potassium 4.2 mmoL/L (3.5-5.1); Sodium 139 mmol/L (136-145); Total Protein,Serum 7.1 g/dl (6.3-8.2)
[2024-07-28 15:45] LABS: Bilirubin,Total 0.1 mg/dl (0.2-1.3)
[2024-07-28 15:58] LABS: 25-OH Vitamin D, Total 32.5 ng/mL (30-100)
[2024-07-28 16:15] LABS: Thyroid Stimulating Hormone 1.28 uIU/mL (0.465-4.68)
[2024-07-28 16:34] LABS: Vitamin B12 183 pg/mL (239-931)
[2024-08-03 14:16] LABS: Vitamin B6 18.1 ug/L (3.4-65.2)
== END 2024-07-28 23:59 | disposition home or self-care (01) ==
LOC: LAB 14:37
PROVIDERS: PCP Nurse Practitioner Family; Visit Provider Nurse Practitioner Family
DX: R20.2 Paresthesia of skin (principal); R53.83 Other fatigue; E53.8 Deficiency of other specified B group vitamins; E55.9 Vitamin D deficiency, unspecified; Z91.018 Allergy to other foods
CPT/HCPCS: 36415; 80053; 82306; 82607; 84207; 84443; 85025

== ENCOUNTER 2024-08-04 14:46 | Day surgery (SDC) | payer OTHER, BC, SELFPAY ==
[2024-08-04 14:32] VITALS: BMI 26.6
[2024-08-04 14:35] VITALS: BP 137/69; PULSE 79; RESP 16; TEMP 36.8; O2SAT 100
[2024-08-04 15:04] LABS: Urine Pregnancy, HCG Qual. Negative (Negative)
--- NOTE | 2024-08-04 15:22 | P.PNANES_ITS ---
[facility] Disclaimer: The information contained in this section may have been updated after the patient was seen, as this information can be updated by other users. Medical History (Updated 08/04/24 @ 14:28 by Megan Hyde RN) Iron (Fe) deficiency anemia Alpha-gal syndrome Surgical History H/O wisdom tooth extraction H/O tubal ligation Delivery by section Social History (Updated 08/04/24 @ 14:29 by Megan Hyde RN) Smoking Status: Never smoker second hand exposure: No alcohol intake: never substance use type: denies use current occupational status: employed Travel in the last 8 weeks: None household members: spouse housing: house Have you lived/traveled outside [place] in past 30 days?: No Contact w/someone who lives/traveled outside [place] past 30 days?: No Exposure to someone with infectious disease in past 14 days?: No Do you have a fever (greater than 100.4 F or 38 C)?: No Have you tested positive for COVID-19: No Exposed to someone with COVID-19 in past 14 days?: No Do you have a sore throat?: No Do you have a cough?: No Do you have any weakness?: No Are you experiencing any nausea/vomitting?: No Do you have any diarrhea?: No Are you experiencing any unusual bleeding?: No Do you have any muscle aches/pain?: No Do you have any abdominal pain?: No Are you experiencing loss of taste or smell?: No [facility] Anesthesia Checklist Patient Identification Patient Identification: Arm Band Structural Data Admitted From: Home Planned Operative Procedure/s: Removal of Esophageal Food Impaction Consent for Planned Operative Procedure(s) Verified: Yes Verified Documents: Surgical Consent and History and Physical NPO Status Verified Time NPO: 12:00 Additional verifications Anesthesia Reactions: No Airway Assessment Mallampati Score:: Class II C-Spine Mobility Assessed: Yes TMJ Mobility Assessed: Yes Dentition: Good Dentition Neurological Assessment Level of Consciousness: Awake, Alert and Appropriate Anesthesia Plan Anesthesia Risk discussed: Yes Anesthesia Plan: Verified ASA Class: II Anesthesia Type: MAC Preoperative Comments Pre-Operative Comments: Pt with Alpha Gal Syndrome. Discussed options with Dr. Farris and Pharmacy. Propofol contraindicated d/t Glycerin as a component. Patient and Dr. Farris both in agreeance to perform procedure with minimal sedation using Versed and Fentanyl.
[2024-08-04 15:39] VITALS: O2SAT 100
--- NOTE | 2024-08-04 15:55 | P.HP_ITS ---
History of Present Illness *Admission Date: 08/04/24 *Reason for visit:: Globus/dysphagia/food impaction *History of present illness: Mrs. Rockwell is a 44-year-old female who is here for diagnostic EGD secondary to abrupt onset of food hanging after eating lunch with chicken. She reports ability to swallow liquids but feels that there is food bolus hung in the retrohyoid region. No prior food impactions or dysphagia. The examination is deemed medically necessary for EGD. The patient has been seen, interviewed and examined prior to the procedure by both myself and the anesthesia provider. [facility] Disclaimer: The information contained in this section may have been updated after the patient was seen, as this information can be updated by other users. Medical History (Updated 08/04/24 @ 15:57 by Sadi Farris II, MD) Iron (Fe) deficiency anemia Alpha-gal syndrome Surgical History H/O wisdom tooth extraction H/O tubal ligation Delivery by section Social History (Updated 08/04/24 @ 14:29 by Megan Hyde RN) Smoking Status: Never smoker second hand exposure: No alcohol intake: never substance use type: denies use current occupational status: employed Travel in the last 8 weeks: None household members: spouse housing: house Have you lived/traveled outside US in past 30 days?: No Contact w/someone who lives/traveled outside US past 30 days?: No Exposure to someone with infectious disease in past 14 days?: No Do you have a fever (greater than 100.4 F or 38 C)?: No Have you tested positive for COVID-19: No Exposed to someone with COVID-19 in past 14 days?: No Do you have a sore throat?: No Do you have a cough?: No Do you have any weakness?: No Are you experiencing any nausea/vomitting?: No Do you have any diarrhea?: No Are you experiencing any unusual bleeding?: No Do you have any muscle aches/pain?: No Do you have any abdominal pain?: No Are you experiencing loss of taste or smell?: No Other Medical History Have you received the Flu Vaccine for this season: Yes Have you received the Pneumonia Vaccine: No Review of Systems Review of Systems Review of systems (narrative): Negative *Cardiovascular Comments: Negative *Gastrointestinal Comments: Negative *Genitourinary Comments: Negative *Musculoskeletal Comments: Negative *Neurologic Comments: Negative Meds Home Medications and Allergies Home Medications ?Medication ?Instructions ?Recorded ?Confirmed ?Type No Known Home Medications 07/20/24 08/04/24 History New Prescriptions to Start Prescriptions: Allergies Allergy/AdvReac Type Severity Reaction Status Date / Time Alpha-Gal Allergy Severe Anaphylaxis Verified 08/04/24 14:47 ([id number],3-Gala latex (LATEX) Allergy Unknown Unknown Verified 07/20/24 14:45 allergy reaction Exam Data for Last 24 hours Vital signs and Labs for Last 24 Hours: Temp Pulse Resp BP Pulse Ox O2 Del Method O2 Flow Rate 98.2 F 79 16 137/69 100 Nasal Cannula 6 08/04/24 14:35 08/04/24 14:35 08/04/24 14:35 08/04/24 14:35 08/04/24 14:35 08/04/24 15:39 08/04/24 15:39 Laboratory Results - last 24 hr 08/04/24 14:50: Urine HCG, Qual Negative I & O for Last 24 hours: Intake & Output 08/01/24 08/02/24 08/03/24 08/04/24 23:59 23:59 23:59 23:59 Weight 160 lb *Routine HEENT Exam Head: Present normocephalic Eye: Present EOMI and PERRL ENT: Present mucous membranes moist *Routine Neck Exam Neck: Present supple *Routine Respiratory Exam Respiratory: Present CTA bilaterally *Routine Cardiovascular Exam Cardiovascular: Present RRR *Routine Abdominal Exam Abdominal: Present soft and normoactive bowel sounds; Absent tenderness *Routine Rectal Exam Rectal:: deferred *Routine Genitalia Exam Genitalia:: deferred *Routine Extremities Exam Extremities: Absent cyanosis, clubbing or edema *Routine Skin Exam Skin: Present warm; Absent rash *Routine Neurological Exam Neurological: Present alert and oriented X3 Assessment and Plan *Assessment and plan (1) Globus sensation: Status: Acute Category: Medical Code(s): R09.A2 - Foreign body sensation, throat (2) Dysphagia: Status: Acute Category: Medical Code(s): R13.10 - Dysphagia, unspecified (3) Food impaction of esophagus: Status: Acute Category: Medical Code(s): T18.128A - Food in esophagus causing other injury, initial encounter; [id number].F3XA - Food entering into or through a natural orifice, initial encounter Plan A/P: 1. Globus/food impaction is the preprocedural diagnosis. The patient will be anesthetized/sedated using MAC sedation. The patient has been seen and examined. Cardiac and lung assessment prior to the examination is stable. Proceed with planned EGD
--- NOTE | 2024-08-04 15:57 | HMH.PROCNOTE ---
[facility] Procedure Note Date: 08/04/24 Time: 16:01 Procedure Note:: Upper Endoscopy Procedure Report: Esophagogastroduodenoscopy Endoscopost: Sadi Farris II, MD Referring Physician: Chin Guajardo M.D. Date of Procedure: August 04, 2024 Equipment: Olympus GIF 190 standard upper endoscope Sedation: MAC sedation Indications: Mrs. Rockwell is a 44-year-old female with abrupt onset of globus after swallowing a chicken food bolus at lunchtime. She still feels as if this is hung in the retrohyoid region. The patient is able to swallow liquids and tolerate her saliva. She has had no prior food impactions or dysphagia. She does have a history of iron deficiency and alpha gal syndrome with multiple allergies to medications and meat. Procedure: Prior to the procedure, a history and physical exam was performed, and patient's medications and allergies were reviewed. The risks, benefits and alternatives of the sedation and procedure were discussed with the patient. All questions were answered and informed consent was obtained. The patient was brought to the procedure room. Patient identification and proposed procedure were verified by the physician and the nurse. The patient was placed in a left lateral decubitus position and the scope was passed under direct vision. Throughout the procedure, the patient's blood pressure, pulse, and oxygen saturations were monitored continuously. The upper GI endoscopy was accomplished without difficulty. The patient tolerated the procedure well. Findings: The scope was passed directly into the upper esophagus and advanced to the first and second portion of the duodenum. There was no evidence of scalloping or celiac disease. The post bulbar duodenum and duodenal bulb were normal with normal mucosa and conniventes. The scope was withdrawn through a normal duodenal bulb and pylorus into the stomach. There was a moderate amount of solid food in the stomach. The visualized portion of the antrum body and fundus were normal. There was no hiatal hernia. The scope was then withdrawn into the esophagus. There was no evidence of reflux esophagitis, Recio's or Schatzki's ring. The entire esophagus was inspected carefully and there was mild esophageal dysmotility. The remainder of the esophageal mucosa was normal. There was no evidence of any food bolus within the esophagus or posterior pharynx. Impression: 1. Normal upper endoscopy Plan: I do suspect the patient has some cricopharyngeal spasm causing globus sensation. Globus sensation is a functional esophageal disorder characterized by a sensation of a lump, retained food bolus or mucus, or tightness in the throat even though swallowing can be performed normally, so it is not a true cause of swallowing difficulties, but it can become quite irritating. Occasionally persons can feel or report some very mild chest pressure or rarely chest pain. The lump in the throat sensation that characterizes globus pharyngis is often caused by inflammation of one or more parts of the throat (larynx/hypopharynx-in the lower portion of the throat) due to spasm of the cricopharyngeus (upper esophageal sphincter muscle).
[2024-08-04 16:00] VITALS: BP 131/78; PULSE 80; RESP 18; TEMP 37.1; O2SAT 99
[2024-08-04 16:10] VITALS: BP 124/73; PULSE 87; RESP 18; O2SAT 100
[2024-08-04 16:11] VITALS: BP 119/71; PULSE 80; RESP 18; O2SAT 100
[2024-08-04 16:43] VITALS: BP 117/68; PULSE 86; RESP 18; O2SAT 99
== END 2024-08-04 16:45 | disposition home or self-care (01) ==
PROVIDERS: PCP Internal Medicine Adolescent Medicine; Visit Provider Internal Medicine Gastroenterology
PROC: 0DJ08ZZ Inspection of Upper Intestinal Tract, Via Natural or Artificial Opening Endoscopic (ICD-10-PCS; CPT 43235; principal; 2024-08-04 14:00)
DX: R09.A2 Foreign body sensation, throat (principal); R13.10 Dysphagia, unspecified; T18.128A Food in esophagus causing other injury, initial encounter; W44.F3XA Food entering into or through a natural orifice, initial encounter; K22.4 Dyskinesia of esophagus
CPT/HCPCS: 43235; 81025; 99152; J2250; J3010

== ENCOUNTER 2024-08-31 08:02 | Outpatient (CLI) | payer OTHER, BC, SELFPAY ==
[2024-08-31] VITALS (26 sets, daily range): BP systolic 109–137; BP diastolic 64–87; PULSE 67–95; RESP 18; TEMP 36.9–37.3; O2SAT 95–100
[2024-08-31] MEDS: diphenhydrAMINE 50MG/ML VIAL 50 MG IV (08:30)
[2024-08-31] MEDS: DEXAMETHASONE 1MG/1ML INTENSOL 10ML UDC (ER) 10 MG PO (08:40)
[2024-08-31] MEDS: SODIUM CHLORIDE 0.9% 50ML BAG 50 ML IV (09:20)
[2024-08-31] MEDS: IRON SUCROSE COMPLEX 200 MG in 0.9 % SODIUM CHLORIDE 100 ML 100 MG IV (09:20)
== END 2024-08-31 11:30 ==
LOC: INF 08:03
PROVIDERS: PCP Internal Medicine Adolescent Medicine; Visit Provider Internal Medicine Medical Oncology
DX: D50.9 Iron deficiency anemia, unspecified (principal)
CPT/HCPCS: 96365; J1200; J1756

== ENCOUNTER 2024-09-07 08:13 | Outpatient (CLI) | payer OTHER, BC, SELFPAY ==
[2024-09-07] MEDS: diphenhydrAMINE 50MG/ML VIAL 50 MG IV (08:29)
[2024-09-07] MEDS: DEXAMETHASONE 4MG/ML 5ML MDV 10 MG IV (08:29)
[2024-09-07] MEDS: IRON SUCROSE COMPLEX 200 MG in 0.9 % SODIUM CHLORIDE 100 ML 220 MG IV (09:09)
[2024-09-07 09:14] VITALS: BP 128/75; PULSE 61; RESP 18; TEMP 37; O2SAT 100
[2024-09-07] MEDS: SODIUM CHLORIDE 0.9% 50ML BAG 50 ML IV (09:14)
[2024-09-07 09:30] VITALS: BP 125/72; PULSE 62; RESP 18; O2SAT 100
[2024-09-07 09:45] VITALS: BP 120/63; PULSE 63; RESP 18; O2SAT 100
[2024-09-07 10:00] VITALS: BP 126/71; PULSE 60; RESP 18; O2SAT 100
[2024-09-07 10:10] VITALS: BP 120/76; PULSE 74; RESP 18; TEMP 36.7; O2SAT 100
== END 2024-09-07 10:10 | disposition home or self-care (01) ==
LOC: INF 08:13
PROVIDERS: PCP Internal Medicine Adolescent Medicine; Visit Provider Internal Medicine Medical Oncology
DX: D50.9 Iron deficiency anemia, unspecified (principal)
CPT/HCPCS: 96365; J1100; J1200; J1756

== ENCOUNTER 2024-10-18 14:32 | Outpatient (CLI) | payer OTHER, BC, SELFPAY ==
--- OUTSIDE RECORDS SUMMARY | 2024-10-18 14:35 | XMS_ITS | Data Portability ---
Author Organization [place] - NT [facility] Medicine and [facility] [place] Address [address] [place] [address] Assessment No assessment recorded. Plan of Treatment Reminders Order Date Submit Date Provider Last Modified By Organization Details Last Modified Time Details Appointments None recorded. Lab urinalysis , dipstick 2023 024 [facility] [address], [address], 4 09:41:19 urinalysis , dipstick 2023 024 [email or web address] [address], [address], 4 09:16:03 Referral None recorded. Procedures None recorded. Surgeries None recorded. Imaging None recorded. Medication Orders None recorded. Patient TargetsNo targets recorded. Patient InstructionsNo instructions recorded. Reason for Referral None Reported. Results Created Date Observation Date Name Description Value Unit Range Abnormal Flag Note LastModifiedBy Organization Detail LastModifiedTime 11/12/19 24 11/12/2023 urina lysis , dipst ick Leukocytes (reference range) negati ve Not Available Randall cortes [address], [address], 11/12/2023 11:13:38 11/12/19 24 11/12/2023 urina lysis , dipst ick Nitrite (reference range:) negati ve Not Available Randall cortes [address], [address], 11/12/2023 11:13:38 11/12/19 24 11/12/2023 urina lysis , dipst ick Urobilinogen (reference range) 0.2 Not Available [address], [address], 11/12/2023 11:13:38 11/12/19 24 11/12/2023 urina lysis , dipst ick Protein (reference range) negati ve Not Available [address], [address], 11/12/2023 11:13:38 11/12/19 24 11/12/2023 urina lysis , dipst ick pH (reference range 5-8.5) 5.5 Not Available [address], [address], 11/12/2023 11:13:38 11/12/19 24 11/12/2023 urina lysis , dipst ick Blood (reference range:) small Not Available [address], [address], 11/12/2023 11:13:38 11/12/19 24 11/12/2023 urina lysis , dipst ick Specific [place] (reference range) 1.010 Not Available [address], [address], 11/12/2023 11:13:38 11/12/19 24 11/12/2023 urina lysis , dipst ick Ketone (reference range) negati ve Not Available [address], [address], 11/12/2023 11:13:38 11/12/19 24 11/12/2023 urina lysis , dipst ick Bilirubin (reference range) negati ve Not Available [address], [address], 11/12/2023 11:13:38 11/12/19 24 11/12/2023 urina lysis , dipst ick Glucose (reference range) negati ve Not Available [address], [address], 11/12/2023 11:13:38 12/26/19 24 12/26/2023 urina lysis , dipst ick Leukocytes (reference range) negati ve Not Available [address], [address], 12/26/2023 12:16:57 12/26/19 24 12/26/2023 urina lysis , dipst ick Nitrite (reference range:) negati ve Not Available [address], [address], 12/26/2023 12:16:57 12/26/19 24 12/26/2023 urina lysis , dipst ick Urobilinogen (reference range) 0.2 Not Available [address], [address], 12/26/2023 12:16:57 12/26/19 24 12/26/2023 urina lysis , dipst ick Protein (reference range) negati ve Not Available [address], [address], 12/26/2023 12:16:57 12/26/19 24 12/26/2023 urina lysis , dipst ick pH (reference range 5-8.5) 6.0 Not Available [address], [address], 12/26/2023 12:16:57 12/26/19 24 12/26/2023 urina lysis , dipst ick Blood (reference range:) hemoly zed: Trace Not Available [address], [address], 12/26/2023 12:16:57 12/26/19 24 12/26/2023 urina lysis , dipst ick Specific [place] (reference range) 1.010 Not Available [address], [address], 12/26/2023 12:16:57 12/26/19 24 12/26/2023 urina lysis , dipst ick Ketone (reference range) negati ve Not Available [address], [address], 12/26/2023 12:16:57 12/26/19 24 12/26/2023 urina lysis , dipst ick Bilirubin (reference range) negati ve Not Available [address], [address], 12/26/2023 12:16:57 12/26/19 24 12/26/2023 urina lysis , dipst ick Glucose (reference range) negati ve Not Available [address], [address], 12/26/2023 12:16:57 11/07/19 24 03/24/2023 CT, abdom en + pelvi s, w/o contr ast No observ ation record ed. [facility] [address], [place], [address], 11/10/2023 12:53:47 Result Notes None recorded. Problems Name Problem SNOMED Code Status Onset Date Resolution Date Notes Provider Name and Address Organization Details Recorded Time Anemia 408567592 Active 024 Nevaeh parham, [place] - [facility] - [place] & [place] 4 10:34:55 Seasonal allergy 563046354 Active 024 Nevaeh parham, [place] - LPNT [facility] & [place] 4 10:35:04 Anxiety 25151517 Active 024 Nevaeh parham, [place] Nicole LPNT [facility] & [place] 10:35:13 Problem Notes None recorded. Procedures Surgical History Date Name Laterality Status Provider Name and Address Organization Details Recorded Time 12/26/19 24 Cystoscopy-Female completed Brian Pollard Jr, MD [address] [place] [address], [address], [place], [address], [place] Nicole LPNT [facility] & [place] 01/04/2024 19:29:44 delivery completed Jaun Nicole [facility] & [place] 11/12/2023 10:35:41 extraction of wisdom tooth completed Nevaeh Nicole LPNT [facility] & [place] 11/12/2023 10:35:52 ligation of fallopian tube completed Nevaeh Nicole LPNT [facility] & [place] 11/12/2023 10:36:03 tonsillectomy completed Nevaeh Nicole LPNT [facility] & [place] 11/12/2023 10:36:13 Imaging Results Imaging Date Name Status LastModified by Organiz ation Details LastModified Time 03/24/2023 CT, abdomen + pelvis, w/o contrast completed [address], [place], [address], 11/10/2023 12:53:47 Procedure Notes None recorded. Medical Equipment None Reported. Allergies No known drug allergies Medications Name Sig Start Date Stop Date Status Note LastModified by Organization Details LastModified Time cetirizine 10 mg tablet TAKE ONE TABLET BY MOUTH EVERY DAY active Not Available Not Available No t Available famotidine 40 mg tablet TAKE ONE TABLET BY MOUTH EVERY DAY active Not Available Not Available No t Available prednisone 20 mg tablet TAKE ONE TABLET BY MOUTH TWICE DAILY -premedicat ion FOR contrast- active Not Available Not Available No t Available sulfamethoxa zole 800 mg-trimethop rim 160 mg tablet TAKE ONE TABLET BY MOUTH EVERY TWELVE HOURS FOR 7 DAYS -- FINISH ALL MEDICINE -- active Not Available Not Available Not Available bisoprolol fumarate 5 mg tablet TAKE 1/2 TABLET BY MOUTH EVERY DAY active Not Available Not Available No t Available famotidine 20 mg tablet TAKE ONE TABLET BY MOUTH TWICE DAILY WITH hive flare AND if no flare THEN ONCE DAILY active Not Available Not Available N ot Available cyanocobalam in (vit B-12) 1,000 mcg/mL injection solution USE DIRECTED intramuscul jhon ONCE WEEKLY FOR 8 WEEKS active Not Available Not Available No t Available BD Luer-Babatunde Syringe 3 mL 25 gauge x 1 USE DIRECTED FOR B-12 INJECTIONS active Not Available Not Available N ot Available amoxicillin 400 mg/5 mL oral suspension TAKE 2 TEASPOONSFU L (10 ML) BY MOUTH TWICE DAILY FOR 10 DAYS SHAKE WELL & REFRIGERATE DISCARD THE REMAINDER OF MEDICATION AFTER ____ DAYS BOTTLE #____OF#___ _ active Not Available Not Available No t Available ergocalcifer ol (vitamin D2) 1,250 mcg (50,000 unit) capsule TAKE ONE CAPSULE BY MOUTH ONCE WEEKLY active Not Available Not Available No t Available ondansetron 4 mg disintegrati ng tablet DISSOLVE 1 TABLET UNDER THE TONGUE EVERY 6 HOURS NEEDED active Not Available Not Available No t Available levalbuterol HFA 45 mcg/actuatio n aerosol inhaler INHALE TWO PUFFS BY MOUTH EVERY 4 TO 6 HOURS NEEDED active Not Available Not Available No t Available ferrous sulfate 220 mg (44 mg iron)/5 mL oral solution TAKE 1 & 1/2 TEASPOONFUL (7.5 ML) BY MOUTH EVERY DAY ON an EMPTY stomach with vitamin c active Not Available Not Available No t Available EpiPen 2-Damián 0.3 mg/0.3 mL injection, auto-injecto r INJECT THE CONTENTS OF 1 AUTO-INJECT OR INTRAMUSCUL JHON ONCE NEEDED FOR ANAPHYLAXIS REACTION. call 911 AFTER USE active Not Available Not Available No t Available Vitals Date Recorded Body height Body mass index (BMI) Body weight Body temperature Provider Name and Address Organization Details Last Updated DateTime 11/12/2023 167.64 cm 23.9 kg/m2 67801.67 g 97.2 [degF] Nevaeh Hampton [place] - LPNT [facility] & [place] 11/12/2023 10:34:40 Date Recorded Body height Body mass index (BMI) Body weight Body temperature Provider Name and Address Organization Details Last Updated DateTime 12/26/2023 167.64 cm 23.9 kg/m2 15991.67 g 97.7 [degF] Hedy Bryan [facility] & [place] 12/26/2023 11:04:14 Social History Question Answer Notes LastModified by Organizat ion Details LastModified Time Tobacco Smoking Status Never Smoker Nevaeh parham, [facility] & [place] 11/12/2023 10:35:30 What Is Your Level Of Alcohol Consumption? None [email or web address] Information not available 11/12/2023 What Is Your Level Of Caffeine Consumption? Occasional [email or web address] Information not available 11/12/2023 Sex: Unknown Functional Status None recorded. Mental Status None recorded. Family History Relationship Description Onset Age of this Age Resolved Age Notes LastModified by Organization Details LastModified Time Father No current problems or disability [email or web address] Not available 02/2024 10:35:17 Mother No current problems or disability [email or web address] Not available 02/2024 10:35:17 Medical History No medical history recorded. Gynecological HistoryNo gynecological history recorded. Obstetrics History GPAL:G 0 P 0 0 0 0 Past Encounters Encounter ID Performer Location Encounter Start Date Encounter Closed Date Diagnosis/Indication Diagnosis SNOMED-CT Code Diagnosis ICD10 Code Diagnosis Note [id number] Brian Pollard Jr, MD [facility] [address] [address] 11/12/2023 10:16:08 11/12/2023 11:06:44 Microscopic hematuria 209663824 R31.29 43-year-ol d white female referred for microscopi c hematuria. Her recent no tremor primary care physician visit was reviewed on October 02, 2023. Her urinalyses were reviewed which showed 2+ blood at that time. Her urine today dips positive for small amount of blood. Previous CT scan March 2023 was unremarkab le. We discussed further workup with cystoscopy . 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 Discussed repeating a urinalysis next month and she will bring her own soaps that are safe to use in case we want to do cystoscopy . [id number] Brian Pollard Jr, MD [facility] [place] [address] [place] [address] 12/26/2023 10:57:14 12/26/2023 12:15:42 Blood in urine 53992430 R31.9 Pt with h/o microhemat uria. CT 03/2023 wnl. Cysto today shows normal bladder. There were some inflammato ry fronds at bladder neck which are likely source of microhemat uria. No treatment recommende d and pt reassured no suspicious findings. Health Concerns Section Related Observation LastModified by Organization Detai ls LastModified Time None Recorded Concern Status LastModified by Organization Details LastModified Time None Recorded Advance Directives Directive None Recorded Payers Encounter Date Sequence Insurance Name Policy Number Policy Bedoya Covered Member ID Bedoya Member ID Guarantor Name 11/12/2023 1 [facility] [id number] 11/12/2023 2 [place] [id number] Kurt Rockwell [id number] 12/26/[id number] 12/26/2023 2 [place] [id number] Kurt Moranence [id number] [address] Notes Date Note Type Note Provider Name and Address Organization Details Recorded Time 11/12/2023 text/html Patient is 43-year-old white female referred for microhematuria. Patient states she had a urinary tract infection symptoms in late September. Her urinalysis at that time showed 2+ blood but no evidence of infection. She was treated for urinary tract infection. She states that she has had previous symptoms of UTI and urinalyses showed some microscopic blood that time too. She had a CT scan performed March 2023 that was within normal limits. She denies a history of gross hematuria, history of stones, flank pain. Brian Pollard Jr, MD [address] [place] [address], [address], [place], [address], [facility] - [place] - [place] & [place] 11/12/2023 13:08:24 12/26/2023 text/html 43 yo WF with microhematuria. She returns today for u/a. It shows trace amount of blood. We discussed proceeding with cystoscopy to rule out any bladder abnormalities. Brian Pollard Jr, MD [address] [place] [address], [address], [place], [address], [facility] - LPNT - [place] & [place] 01/04/2024 19:32:26 OBGyn Episode No OBEpisode recorded.
[2024-10-18 15:17] LABS: Iron 64 ug/dL (37-170)
[2024-10-18 15:26] LABS: Total Iron Binding Capacity 412 ug/dL (265-497)
[2024-10-18 15:54] LABS: Ferritin 6.35 ng/ml (6.24-137)
[2024-10-18 20:12] LABS: Basophils # 0.1 K/mm3 (0-0.2); Basophils % 0.6 % (0.1-2.0); Eosinophils # 0.1 K/mm3 (0.0-0.4); Eosinophils % 0.8 % (0.1-12.0); Hematocrit 40.1 % (37.0-47.0); Hemoglobin 12.7 g/dL (12.2-16.2); Lymphocytes # 2.2 K/mm3 (0.7-4.5); Lymphocytes % 24.7 % (10-50); Mean Corpuscular HGB Conc 31.7 g/dL (31.8-35.4); Mean Corpuscular Hemoglobin 30.2 pg (27.0-31.2); Mean Corpuscular Volume 95.5 fl (81-99); Mean Platelet Volume 14.8 fl (7.4-10.4); Monocytes # 0.7 K/mm3 (0.1-1.0); Monocytes % 7.3 % (1.7-9.3); Neutrophils % 66.4 % (37.0-80.0); Nucleated Red Blood Cells # 0 10^3/uL; Nucleated Red Blood Cells % 0 %; Platelet Count 171 K/mm3 (142-424); Red Cell Distribution Width 18.1 % (11.5-17.5); Red Cell Distribution Width-SD 63.5 fL
== END 2024-10-18 23:59 | disposition home or self-care (01) ==
LOC: LAB 14:33
PROVIDERS: PCP Internal Medicine Adolescent Medicine; Visit Provider Internal Medicine Medical Oncology
DX: D50.0 Iron deficiency anemia secondary to blood loss (chronic) (principal)
CPT/HCPCS: 36415; 82728; 83540; 83550; 85025

== ENCOUNTER 2024-11-09 14:41 | Outpatient (CLI) | payer OTHER, BC, SELFPAY ==
--- OUTSIDE RECORDS SUMMARY | 2024-11-09 14:43 | XMS_ITS | Data Portability ---
Author Organization [place] - NT [facility] Medicine and [facility] [place] Address [address] [place] [address] Assessment No assessment recorded. Plan of Treatment Reminders Order Date Submit Date Provider Last Modified By Organization Details Last Modified Time Details Appointments None recorded. Lab urinalysis , dipstick 2023 024 [email or web address] [address], [address], 4 09:41:19 urinalysis , dipstick 2023 024 [email or web address] [address], [address], 4 09:16:03 Referral None recorded. Procedures None [...] range) negati ve Not Available Randall cortes [address], [address], 11/12/2023 11:13:38 11/12/19 24 11/12/2023 urina lysis , dipst ick Nitrite (reference range:) negati ve Not Available Randall cortes [address], [address], 11/12/2023 11:13:38 11/12/19 24 11/12/2023 urina lysis , dipst ick Urobilinogen (reference range) 0.2 Not Available [address], [address], 11/12/2023 11:13:38 11/12/19 24 11/12/2023 urina lysis , dipst ick Protein (reference range) negati ve Not Available [address], [address], 11/12/2023 11:13:38 11/12/19 24 11/12/2023 urina lysis , dipst ick pH (reference range 5-8.5) 5.5 Not Available [address], [address], 11/12/2023 11:13:38 11/12/19 24 11/12/2023 urina lysis , dipst ick Blood (reference range:) small Not Available [address], [address], 11/12/2023 11:13:38 11/12/19 24 11/12/2023 urina lysis , dipst ick Specific [place] (reference range) 1.010 Not Available [address], [address], 11/12/2023 11:13:38 11/12/19 24 11/12/2023 urina lysis , dipst ick Ketone (reference range) negati ve Not Available [address], [address], 11/12/2023 11:13:38 11/12/19 24 11/12/2023 urina lysis , dipst ick Bilirubin (reference range) negati ve Not Available [address], [address], 11/12/2023 11:13:38 11/12/19 24 11/12/2023 urina lysis , dipst ick Glucose (reference range) negati ve Not Available [address], [address], 11/12/2023 11:13:38 12/26/19 24 12/26/2023 urina lysis , dipst ick Leukocytes (reference range) negati ve Not Available [address], [address], 12/26/2023 12:16:57 12/26/19 24 12/26/2023 urina lysis , dipst ick Nitrite (reference range:) negati ve Not Available [address], [address], 12/26/2023 12:16:57 12/26/19 24 12/26/2023 urina lysis , dipst ick Urobilinogen (reference range) 0.2 Not Available [address], [address], 12/26/2023 12:16:57 12/26/19 24 12/26/2023 urina lysis , dipst ick Protein (reference range) negati ve Not Available [address], [address], 12/26/2023 12:16:57 12/26/19 24 12/26/2023 urina lysis , dipst ick pH (reference range 5-8.5) 6.0 Not Available [address], [address], 12/26/2023 12:16:57 12/26/19 24 12/26/2023 urina lysis , dipst ick Blood (reference range:) hemoly zed: Trace Not Available [address], [address], 12/26/2023 12:16:57 12/26/19 24 12/26/2023 urina lysis , dipst ick Specific [place] (reference range) 1.010 Not Available [address], [address], 12/26/2023 12:16:57 12/26/19 24 12/26/2023 urina lysis , dipst ick Ketone (reference range) negati ve Not Available [address], [address], 12/26/2023 12:16:57 12/26/19 24 12/26/2023 urina lysis , dipst ick Bilirubin (reference range) negati ve Not Available [address], [address], 12/26/2023 12:16:57 12/26/19 24 12/26/2023 urina lysis , dipst ick Glucose (reference range) negati ve Not Available [address], [address], 12/26/2023 12:16:57 11/07/19 24 03/24/2023 CT, abdom en + pelvi s, w/o contr ast No observ ation record ed. [email or web address] [facility] [address], [place], [address], 11/10/2023 12:53:47 Result Notes None recorded. Problems Name Problem SNOMED Code Status Onset Date Resolution Date Notes Provider Name and Address Organization Details Recorded Time Anemia 077588739 Active 024 Nevaeh parham, [place] - [facility] - [place] & [place] 4 10:34:55 Seasonal allergy 515469767 Active 024 Nevaeh parham, [place] - LPNT [facility] & [place] 4 10:35:04 Anxiety 12511518 Active 024 Nevaeh parham, [place] Nicole LPNT [facility] & [place] 10:35:13 Problem Notes None recorded. Procedures Surgical History Date Name Laterality Status Provider Name and Address Organization Details Recorded Time 12/26/19 24 Cystoscopy-Female completed Brian Pollard Jr, MD [address] [place] [address], [address], [place], [address], [place] Nicole LPNT [facility] & [place] 01/04/2024 19:29:44 delivery completed Jaun Nicole [facility] & [place] 11/12/2023 10:35:41 extraction of wisdom tooth completed Nevaeh Nicole LPNT [facility] & [place] 11/12/2023 10:35:52 ligation of fallopian tube completed Nevaeh Nicole LPNT [facility] & [place] 11/12/2023 10:36:03 tonsillectomy completed Nevaeh Nicole LPNT [facility] & [place] 11/12/2023 10:36:13 Imaging Results Imaging Date Name Status LastModified by Organiz ation Details LastModified Time 03/24/2023 CT, abdomen + pelvis, w/o contrast completed [address], [place], [address], 11/10/2023 12:53:47 Procedure Notes None recorded. Medical [...] Updated DateTime 11/12/2023 167.64 cm 23.9 kg/m2 34148.67 g 97.2 [degF] Nevaeh Hampton [place] - LPNT [facility] & [place] 11/12/2023 10:34:40 Date Recorded Body height Body mass index (BMI) Body weight Body temperature Provider Name and Address Organization Details Last Updated DateTime 12/26/2023 167.64 cm 23.9 kg/m2 06944.67 g 97.7 [degF] Hedy Bryan [facility] & [place] 12/26/2023 11:04:14 Social History Question Answer Notes LastModified by Organizat ion Details LastModified Time Tobacco Smoking Status Never Smoker Nevaeh parham, [facility] & [place] 11/12/2023 10:35:30 What Is Your Level Of Alcohol Consumption? None [email or web address] Information not available 11/12/2023 What Is Your Level Of Caffeine Consumption? Occasional [email or web address] Information not available 11/12/2023 Sex: Unknown Functional Status None recorded. Mental Status None recorded. Family History Relationship Description Onset Age of this Age Resolved Age Notes LastModified by Organization Details LastModified Time Father No current problems or disability [email or web address] Not available 02/2024 10:35:17 Mother No current problems or disability [email or web address] Not available 02/2024 10:35:17 Medical History No medical history recorded. Gynecological HistoryNo gynecological history recorded. Obstetrics History GPAL:G 0 P 0 0 0 0 Past Encounters Encounter ID Performer Location Encounter Start Date Encounter Closed Date Diagnosis/Indication Diagnosis SNOMED-CT Code Diagnosis ICD10 Code Diagnosis Note [id number] Brian Pollard Jr, MD [facility] [address] [address] 11/12/2023 10:16:08 11/12/2023 11:06:44 Microscopic hematuria 466349959 R31.29 43-year-ol d white female referred for [...] case we want to do cystoscopy . [id number] Brian Pollard Jr, MD [facility] [place] [address] [place] [address] 12/26/2023 10:57:14 12/26/2023 12:15:42 Blood in urine 60476118 R31.9 Pt with h/o microhemat uria. CT [...] Bedoya Member ID Guarantor Name 11/12/2023 1 [facility] [id number] [place] 11/12/2023 2 [place] [id number] Kurt Rockwell [id number] 12/26/2023 1 UMR [id number] [address] [id number] 12/26/2023 2 [place] [id number] Kurt Moranence [id number] Notes Date Note Type Note [...] stones, flank pain. Brian Pollard Jr, MD [address] [place] [address], [address], [place], [address], [facility] - NT - [place] & [place] 11/12/2023 13:08:24 12/26/2023 text/html 43 yo WF with microhematuria. She returns today for u/a. It shows trace amount of blood. We discussed proceeding with cystoscopy to rule out any bladder abnormalities. Brian Pollard Jr, MD [address] [place] [address], [address], [place], [address], [facility] - LPNT - [place] & [place] 01/04/2024 19:32:26 OBGyn Episode No OBEpisode recorded.
[2024-11-09 15:12] LABS: Basophils # 0.1 K/mm3 (0-0.2); Basophils % 0.8 % (0.1-2.0); Eosinophils # 0.2 Kmm3 (0.0-0.4); Eosinophils % 1.6 % (0.1-12.0); Hematocrit 36.4 % (37.0-47.0); Hemoglobin 11.4 g/dL (12.2-16.2); Immature Granulocytes # 0.02 10^3uL; Immature Granulocytes % 0.2 %; Lymphocytes # 2.5 K/mm3 (0.7-4.5); Lymphocytes % 26.6 % (10-50); Mean Corpuscular HGB Conc 31.3 g/dL (31.8-35.4); Mean Corpuscular Hemoglobin 30.1 pg (27.0-31.2); Mean Platelet Volume 12.7 fl (7.4-10.4); Monocytes # 0.6 K/mm3 (0.1-1.0); Monocytes % 6.5 % (1.7-9.3); Neutrophils # 5.9 K/mm3 (1.8-7.8); Neutrophils % 64.3 % (37.0-80.0); Nucleated Red Blood Cells # 0 10^3/uL; Nucleated Red Blood Cells % 0 %; Platelet Count 178 K/mm3 (142-424); Red Blood Count 3.79 M/mm3 (4.20-5.40); Red Cell Distribution Width-SD 57.1 fL; White Blood Count 9.2 K/mm3 (4.8-10.8)
[2024-11-09 15:38] LABS: Albumin Level 4.3 g/dl (3.5-5.0); Chloride 105 mmol/L (98-107); Sodium 138 mmol/L (136-145)
[2024-11-09 15:39] LABS: Potassium 4.2 mmoL/L (3.5-5.1)
[2024-11-09 15:41] LABS: Alanine Aminotransferase 12 U/L (12-78); Anion Gap 9.2 mEq/L (5-15); Aspartate Amino Transferase 20 U/L (14-36); Bilirubin,Total 0.3 mg/dl (0.2-1.3); Blood Urea Nitrogen 19 mg/dl (7-17); Carbon Dioxide 28 mmol/L (22.0-30.0); Estimated Glomerular Filt Rate 78 ml/min (>60); GFR (African American) 94 ML/MIN (>60)
[2024-11-09 15:42] LABS: Albumin/Globulin Ratio 1.6 (1.1-1.8); Alkaline Phosphatase 60 U/L (38-126); Globulin 2.7 g/dL (1.3-3.2); Glucose 79 mg/dl (74-100)
[2024-11-09 17:59] LABS: Free T4 (Free Thyroxine) 1.23 ng/dl (0.78-2.19)
[2024-11-09 21:03] LABS: Thyroid Stimulating Hormone 1.11 uIU/mL (0.465-4.68)
[2024-11-10 11:15] LABS: Immunoglobulin A, Qn 170 mg/dL (87-352); Immunoglobulin M, Qn 217 mg/dL (26-217)
[2024-11-10 14:16] LABS: Antinuclear Antibodies, IFA Negative (.); Thyroid Peroxidase Antibodies <9 IU/mL (0-34)
[2024-11-10 19:40] LABS: Thyroglobulin Level <1.0 IU/mL (0.0-0.9)
[2024-11-11 19:51] LABS: IgG, Subclass 1 576 mg/dL (248-810); IgG, Subclass 2 609 mg/dL (130-555); IgG, Subclass 3 44 mg/dL (15-102); IgG, Subclass 4 21 mg/dL (2-96); Immunoglobulin G, Qn 1341 mg/dL (586-1602)
== END 2024-11-09 23:59 | disposition home or self-care (01) ==
LOC: LAB 14:42
PROVIDERS: PCP Internal Medicine Adolescent Medicine; Visit Provider Nurse Practitioner
DX: L50.8 Other urticaria (principal)
CPT/HCPCS: 36415; 80053; 82784; 82785; 82787; 83520; 84439; 84443; 85025; 86008; 86038; 86352; 86376; 86800

== ENCOUNTER 2024-11-30 14:42 | Outpatient (CLI) | payer OTHER, BC, SELFPAY ==
--- OUTSIDE RECORDS SUMMARY | 2024-11-30 14:44 | XMS_ITS | Data Portability ---
Author Organization [place] - [place] [facility] Medicine and [facility] Address [address] [place] [address] Assessment No assessment recorded. Plan of Treatment Reminders Order Date Submit Date Provider Last Modified By Organization Details Last Modified Time Details Appointments None recorded. Lab urinalysis , dipstick 2023 024 [email or web address] [address], [address], 4 09:41:19 urinalysis , dipstick 2023 [email or web address], [address], 4 09:16:03 Referral None recorded. Procedures None [...] range) negati ve Not Available Randall cortes [address], [address], 11/12/2023 11:13:38 11/12/19 24 11/12/2023 urina lysis , dipst ick Nitrite (reference range:) negati ve Not Available Randall cortes [address], [address], 11/12/2023 11:13:38 11/12/19 24 11/12/2023 urina lysis , dipst ick Urobilinogen (reference range) 0.2 Not Available [address], [address], 11/12/2023 11:13:38 11/12/19 24 11/12/2023 urina lysis , dipst ick Protein (reference range) negati ve Not Available [address], [address], 11/12/2023 11:13:38 11/12/19 24 11/12/2023 urina lysis , dipst ick pH (reference range 5-8.5) 5.5 Not Available [address], [address], 11/12/2023 11:13:38 11/12/19 24 11/12/2023 urina lysis , dipst ick Blood (reference range:) small Not Available [address], [address], 11/12/2023 11:13:38 11/12/19 24 11/12/2023 urina lysis , dipst ick Specific [place] (reference range) 1.010 Not Available [address], [address], 11/12/2023 11:13:38 11/12/19 24 11/12/2023 urina lysis , dipst ick Ketone (reference range) negati ve Not Available [address], [address], 11/12/2023 11:13:38 11/12/19 24 11/12/2023 urina lysis , dipst ick Bilirubin (reference range) negati ve Not Available [address], [address], 11/12/2023 11:13:38 11/12/19 24 11/12/2023 urina lysis , dipst ick Glucose (reference range) negati ve Not Available [address], [address], 11/12/2023 11:13:38 12/26/19 24 12/26/2023 urina lysis , dipst ick Leukocytes (reference range) negati ve Not Available [address], [address], 12/26/2023 12:16:57 12/26/19 24 12/26/2023 urina lysis , dipst ick Nitrite (reference range:) negati ve Not Available [address], [address], 12/26/2023 12:16:57 12/26/19 24 12/26/2023 urina lysis , dipst ick Urobilinogen (reference range) 0.2 Not Available [address], [address], 12/26/2023 12:16:57 12/26/19 24 12/26/2023 urina lysis , dipst ick Protein (reference range) negati ve Not Available [address], [address], 12/26/2023 12:16:57 12/26/19 24 12/26/2023 urina lysis , dipst ick pH (reference range 5-8.5) 6.0 Not Available [address], [address], 12/26/2023 12:16:57 12/26/19 24 12/26/2023 urina lysis , dipst ick Blood (reference range:) hemoly zed: Trace Not Available [address], [address], 12/26/2023 12:16:57 12/26/19 24 12/26/2023 urina lysis , dipst ick Specific [place] (reference range) 1.010 Not Available [address], [address], 12/26/2023 12:16:57 12/26/19 24 12/26/2023 urina lysis , dipst ick Ketone (reference range) negati ve Not Available [address], [address], 12/26/2023 12:16:57 12/26/19 24 12/26/2023 urina lysis , dipst ick Bilirubin (reference range) negati ve Not Available [address], [address], 12/26/2023 12:16:57 12/26/19 24 12/26/2023 urina lysis , dipst ick Glucose (reference range) negati ve Not Available [address], [address], 12/26/2023 12:16:57 11/07/19 24 03/24/2023 CT, abdom en + pelvi s, w/o contr ast No observ ation record ed. [facility] [address], [place], [address], 11/10/2023 12:53:47 Result Notes None recorded. Problems Name Problem SNOMED Code Status Onset Date Resolution Date Notes Provider Name and Address Organization Details Recorded Time Anemia 641745839 Active 024 Nevaeh parham, [place] - [facility] - [place] & [place] 4 10:34:55 Seasonal allergy 339390954 Active 024 Nevaeh parham, [place] [facility] & [place] 4 10:35:04 Anxiety 40306246 Active 024 Nevaeh parham, [place] [employer] & [place] 4 10:35:13 Problem Notes None recorded. Procedures Surgical History Date Name Laterality Status Provider Name and Address Organization Details Recorded Time 12/26/19 24 Cystoscopy-Female completed Brian Pollard Jr, MD [address] [place] [address], [address], [place], [address], [facility] & [place] 01/04/2024 19:29:44 delivery completed Jaun Nicole [facility] & [place] 11/12/2023 10:35:41 extraction of wisdom tooth completed Nevaeh Nicole [facility] & [place] 11/12/2023 10:35:52 ligation of fallopian tube completed Nevaeh FLOOD [facility] & [place] 11/12/2023 10:36:03 tonsillectomy completed Nevaeh FLOOD [facility] & [place] 11/12/2023 10:36:13 Imaging Results None recorded. Procedure Notes None recorded. Medical Equipment None [...] Updated DateTime 11/12/2023 167.64 cm 23.9 kg/m2 86463.67 g 97.2 [degF] Nevaeh Hampton [facility] & [place] 11/12/2023 10:34:40 Date Recorded Body height Body mass index (BMI) Body weight Body temperature Provider Name and Address Organization Details Last Updated DateTime 12/26/2023 167.64 cm 23.9 kg/m2 28872.67 g 97.7 [degF] Hedy Bryan [facility] & [place] 12/26/2023 11:04:14 Social History Question Answer Notes LastModified by Organizat ion Details LastModified Time Tobacco Smoking Status Never Smoker Nevaeh Hampton [facility], [facility] & [place] 11/12/2023 10:35:30 What Is Your Level Of Caffeine Consumption? Occasional Information not available 11/12/2023 Sex: Unknown Functional Status Question Answer Note LastModified by Organization D etails LastModified Time What is your level of alcohol consumption? None [email or web address] Information not available 11/12/2023 Mental Status None recorded. Family History Relationship Description Onset Age of this Age Resolved Age Notes LastModified by Organization Details LastModified Time Father No current problems or disability [email or web address] Not available 02/2024 10:35:17 Mother No current problems or disability [email or web address] Not available 02/2024 10:35:17 Medical History No medical history recorded. Gynecological HistoryNo gynecological history recorded. Obstetrics History GPAL:G 0 P 0 0 0 0 Past Encounters Encounter ID Performer Location Encounter Start Date Encounter Closed Date Diagnosis/Indication Diagnosis SNOMED-CT Code Diagnosis ICD10 Code Diagnosis Note [id number] Brian Pollard Jr, MD [facility] [address] [address] 11/12/2023 10:16:08 11/12/2023 11:06:44 Microscopic hematuria 656927388 R31.29 43-year-ol d white female referred for [...] case we want to do cystoscopy . [id number] Brian Pollard Jr, MD [facility] [address] [address] 12/26/2023 10:57:14 12/26/2023 12:15:42 Blood in urine 65655714 R31.9 Pt with h/o microhemat uria. CT [...] Recorded Advance Directives Directive None Recorded Payers Insurance Date Sequence Insurance Name Policy Number Policy Bedoya Covered Member ID Bedoya Member ID Guarantor Name 01/05/2024 2 [employer] [id number] Kurt Rockwell [id number] 01/05/[id number] Notes Date Note Type Note Provider Name [...] stones, flank pain. Brian Pollard Jr, MD [address] [place] [address], [address], [place], [address], [facility] 11/12/2023 13:08:24 12/26/2023 text/html 43 yo WF with microhematuria. She returns today for u/a. It shows trace amount of blood. We discussed proceeding with cystoscopy to rule out any bladder abnormalities. Brian Pollard Jr, MD [address] [place] [address] Drive, [address], [place], [address], [facility] & [place] 01/04/2024 19:32:26 OBGyn Episode No OBEpisode recorded.
[2024-11-30 15:47] LABS: Iron 47 ug/dL (37-170)
[2024-11-30 15:56] LABS: Total Iron Binding Capacity 425 ug/dL (265-497)
[2024-11-30 16:31] LABS: Ferritin 4.87 ng/ml (6.24-137)
== END 2024-11-30 23:59 | disposition home or self-care (01) ==
LOC: LAB 14:43
PROVIDERS: PCP Internal Medicine Adolescent Medicine; Visit Provider Internal Medicine Medical Oncology
DX: D50.0 Iron deficiency anemia secondary to blood loss (chronic) (principal)
CPT/HCPCS: 36415; 82728; 83540; 83550

== ENCOUNTER 2025-02-24 14:33 | Outpatient (CLI) | payer OTHER, BC, SELFPAY ==
--- OUTSIDE RECORDS SUMMARY | 2025-01-27 16:00 | XMS_ITS | Encounter Summary ---
[facility] Address [address] [place] [address] Care Team Providers Care Sheep Farm Manager Name Role Phone Chin Guajardo MD Primary Care Provider [phone] Reason for Referral * Diagnostic Imaging (Routine) - Closed Specialty Diagnoses / Procedures Referred By Leigh t Referred To Contact Radiology Diagnoses Breast tenderness Breast lump on left side at 2 o'clock position Procedures Mammo Diagnostic Digital Tomosynthesis Bilateral With CAD CHG DIGITAL BREAST TOMOSYNTHESIS BILATERAL [place] TOMOSYNTHESIS, MAMMO Mar Verdin, CORBY [address] [facility] [address] [place] [address] Phone: tel: fax: [facility] [address] [place] [address] Phone: tel: Referral ID Status Reason Start Date Expiration Date Visits Re quested Visits Authorized [id number] Closed 01/27/2025 04/28/2026 1 1 Reason for Visit * Reason Comments Breast Problem Encounter Details Date Type Department Care Team (Late Contact Info) Description 01/27/2025 4:00 PM EDT Office Visit [facility] OBGYN [address] [place] [address] Mar Verdin, RESIDENT PROGRAM SPECIALIST [address] [facility] [address] [place] [address] Breast tenderness (Primary Dx); Breast lump on left side at 2 o'clock position Social History Tobacco Use Types Packs/Day Years Used Date Smoking Tobacco: Never Smokeless Tobacco: Never Tobacco Cessation:Counseling Given: Not Answered Alcohol Use Standard Drinks/Week Comments Not Currently 0 (1 standard drink = 0.6 oz pur e alcohol) Comments No Sex and Gender Information Value Date Recorded Sex Assigned at Not on file Legal Sex Female 1:43 PM EDT Gender Identity Not on file Sexual Orientation Not on file documented as of this encounter Last Filed Vital Signs Vital Sign Reading Time Taken Comments Blood Pressure 108/64 01/27/2025 4:03 PM EDT Pulse - - Temperature - - Respiratory Rate 18 01/27/2025 4:03 PM EDT Oxygen Saturation - - Inhaled Oxygen Concentration - - Weight 74.4 kg (164 lb) 01/27/2025 4:03 PM EDT Height 162.6 cm (5' 4.02 ) 01/27/2025 4:03 PM ED T Body Mass Index 28.14 01/27/2025 4:03 PM EDT documented in this encounter Progress Notes * Mar Verdin, CORBY - 01/27/2025 4:00 PM EDT Images from the original note were not included. OBGYN Office Note Chief Complaint Patient presents with Breast Problem Subjective HPI Ave Rockwell is a 44 y.o. female, , who presents with breast complaints of a mass and tenderness. This is present in upper outer quadrant of bilateral breast(s). She states she has experienced this problem for 4 days. The problem has remained unchanged since it. The patient denies changed mole, dryness, nipple discharge, rash, and skin color change. Shehas had a mammogram before. She does not have a family history of breast cancer.. Other concerns include: vaginal cyst Her last LMP was Patient's last menstrual period was 01/12/2025 (exact date).. Current contraception: contraceptive methods: Tubal ligation Last mammogram: Last Completed Mammogram Awaiting Completion MAMMOGRAM (Every 2 Years) Order placed this encounter 01/27/2025 Order placed for Mammo Diagnostic Digital Tomosynthesis Bilateral With CAD by Mar Verdin, RESIDENT PROGRAM SPECIALIST 06/25/2024 Mammo Screening Digital Tomosynthesis Bilateral With CAD 07/03/2022 SCANNED - MAMMO 07/03/2022 Mammo Diagnostic Digital Tomosynthesis Left With CAD 05/24/2022 SCANNED - MAMMO Only the first 5 history entries have been loaded, but more history exists. 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 call 911 AFTER USE, Disp: , Rfl: Review of Systems Constitutional: Negative. Respiratory: Negative. Cardiovascular: Negative. Gastrointestinal: Negative. Genitourinary: Positive for breast lump and breast pain. I have reviewed and agree with the HPI, ROS, and historical information as entered above. Mar Blackmon, RESIDENT PROGRAM SPECIALIST Objective BP 108/64 Resp 18 Ht 162.6 cm (64.02 ) Wt 74.4 kg (164 lb) LMP 01/12/2025 (Exact Date) BMI 28.14 kg/m?? Physical Exam Constitutional: Appearance: Normal appearance. Pulmonary: Effort: Pulmonary effort is normal. Chest: Breasts: Right: Tenderness present. No nipple discharge or skin change. Left: Mass and tenderness present. No nipple discharge or skin change. Comments: left breast lump 2 oclock, 3 cm from areola, 1 cm in size, tender. Sub-centimeter likely lymph node palpable in right axilla Genitourinary: Comments: #1- stable 5 mm clear cyst, nontender #2- inclusion cyst, nontender #3- tenderness in the area. No abnormality appreciated Lymphadenopathy: Upper Body: Right upper body: Axillary adenopathy present. Left upper body: No axillary adenopathy. Neurological: Mental Status: She is alert. Assessment & Plan Assessment Problem List Items Addressed This Visit None Visit Diagnoses Breast tenderness - Primary Relevant Orders Mammo Diagnostic Digital Tomosynthesis Bilateral With CAD Breast lump on left side at 2 o'clock position Relevant Orders Mammo Diagnostic Digital Tomosynthesis Bilateral With CAD Bilateral breast tenderness in the upper outer quadrants Plan Discussed fibrocystic disease and alleviating measures. Reassured the patient that the finding is most likely benign. Discussed need for futher evaluation. Arranged for mammogram. Return if symptoms worsen or fail to improve, for Annual physical. Mar Verdin APRN 01/27/2025 documented in this encounter Plan of Treatment Not on file documented as of this encounter Results * Mammo Diagnostic Digital Tomosynthesis Bilateral With CAD (02/03/2025 8:36 AM EDT) Anatomical Region Laterality Modality Breast Bilateral Mammography 02/03/2025 9:12 AM EDT Impressions 02/03/2025 9:15 AM EDT BI-RADS 2, benign findings. RECOMMENDATION: Annual routine screening mammography is advised. Further management of the patient's bilateral palpable abnormality should be based on clinical assessment. The standard false-negative rate of mammography is between 10% and 25%. Complex patterns or increased breast density will markedly elevate the false-negative rate of mammography. A results letter, in lay terminology, will be given to the patient at the conclusion of the exam. 02/03/2025 9:[address] Primo Lopez MD on Narrative 02/03/2025 9:15 AM EDT EXAMINATION:MAMMO DIAGNOSTIC DIGITAL TOMOSYNTHESIS BILATERAL W CAD-, US BREAST BILATERAL LIMITED- HISTORY: 44-year-old female with bilateral palpable abnormalities. Bilateral exam. TECHNIQUE: 2D and 3D bilateral MLO and cc views were obtained. CAD was utilized. Targeted bilateral breast ultrasound was performed. COMPARISON: Prior studies dating back to 10/17/2015. FINDINGS: The breast tissue is extremely dense, which lowers the sensitivity of mammography. There is a mass noted in the right breast at 8:00, 6 cm from the nipple, which may be on the skin surface. Otherwise, no worrisome masses, calcifications, or architectural distortion is identified bilaterally. Targeted right breast ultrasound was performed. At 8:00, 6 cm from the nipple, there is a mole in the skin surface which corresponds with the mammographic finding. Images were obtained at the patient directed site of the palpable abnormality at 11:00, 7 cm from the nipple, demonstrating normal dense breast tissue with numerous small benign-appearing cysts. No suspicious findings are noted. Targeted left breast ultrasound was performed at the patient directed site of the palpable abnormality at 1:00, 9 cm from the nipple, demonstrating normal dense breast tissue. At 1:00, 5 cm from the nipple, there is a benign-appearing 14 mm cyst cluster without internal vascularity. us Mar Verdin APRN IMG MAMMOGRAPHY ORDERABLE S Final Result documented in this encounter Visit Diagnoses Diagnosis Breast tenderness- Primary Mastodynia Breast lump on left side at 2 o'clock position Lump or mass in breast Breast tenderness Mastodynia Breast lump on left side at 2 o'clock position Lump or mass in breast documented in this encounter Care Teams Sheep Farm Manager Relationship Specialty Start Date End Date Chin Guajardo MD [address] [facility] [address] [place] [phone] PCP - General 10/16/15 documented as of this encounter
--- OUTSIDE RECORDS SUMMARY | 2025-02-03 07:45 | XMS_ITS | Encounter Summary ---
[facility] Address [address] [place] [id number] Care Team Providers Care Acetylene Burner Name Role Phone Chin Guajardo MD Primary Care Provider [phone] Reason for Referral * Diagnostic Imaging (Routine) - Closed Specialty Diagnoses / Procedures Referred By Leigh montoya Referred To Contact Radiology Diagnoses Breast tenderness Breast lump on left side at 2 o'clock position Procedures Mammo Diagnostic Digital Tomosynthesis Bilateral With CAD CHG DIGITAL BREAST TOMOSYNTHESIS BILATERAL [place] TOMOSYNTHESIS, MAMMO Mar Verdin, CORBY [address] [place] [address] Phone: tel: fax: [facility] [address] [place] [address] Phone: tel: Referral ID Status Reason Start Date Expiration Date Visits Re quested Visits Authorized [id number] Closed 01/27/2025 04/28/2026 1 1 Reason for Visit * Diagnostic Imaging (Routine) - Closed Specialty Diagnoses / Procedures Referred By Leigh montoya Referred To Contact Radiology Diagnoses Breast tenderness Breast lump on left side at 2 o'clock position Procedures Mammo Diagnostic Digital Tomosynthesis Bilateral With CAD CHG DIGITAL BREAST TOMOSYNTHESIS BILATERAL [place] TOMOSYNTHESIS, MAMMO Mar Verdin APRN [address] [place] [id number] Phone: tel: fax: [facility] [address] [place] [address] Phone: tel: Referral ID Status Reason Start Date Expiration Date Visits Re quested Visits Authorized [id number] Closed 01/27/2025 04/28/2026 1 1 Encounter Details Date Type Department Care Team (Latest Contact Info) Description 02/03/2025 7:45 AM EDT - 02/03/2025 11:59 PM EDT Hospital Encounter [facility] [place] [address] [place] [address] Breast tenderness; Breast lump on [...] breast documented in this encounter Care Teams Acetylene Burner Relationship Specialty Start Date End Date Chin Guajardo MD [facility] [address] [address] PCP - General 10/16/15 documented as of this encounter
--- OUTSIDE RECORDS SUMMARY | 2025-02-03 08:35 | XMS_ITS | Encounter Summary ---
Author Organization [facility] Address [address] [place] [id number] Care Team Providers Care Assembler Clip On Sunglasses Name Role Phone Chin Guajardo MD Primary Care Provider [phone] Reason for Referral * Diagnostic Imaging (Routine) - Closed Specialty Diagnoses / Procedures Referred By Contac t Referred To Contact Radiology Diagnoses Breast tenderness Breast lump on left side at 2 o'clock position Procedures US Breast Bilateral Limited Mar Verdin, COMBINING MACHINE OPERATOR [address] [place] [address] Phone: tel: fax: [facility] [address] [place] [phone] Phone: tel: Referral ID Status Reason Start Date Expiration Date Visits Re quested Visits Authorized Closed 02/03/2025 05/05/2026 1 1 Reason for Visit * Diagnostic Imaging (Routine) - Closed Specialty Diagnoses / Procedures Referred By Contac t Referred To Contact Radiology Diagnoses Breast tenderness Breast lump on left side at 2 o'clock position Procedures US Breast Bilateral Limited Mar Verdin, CORBY [address] [place] [address] Phone: tel: fax: [facility] [address] [place] [address] Phone: tel: Referral ID Status Reason Start Date Expiration Date Visits Re quested Visits Authorized [id number] Closed 02/03/2025 05/05/2026 1 1 Encounter Details Date Type Department Care Team (Latest Contact Info) Description 02/03/2025 8:35 AM EDT - 02/03/2025 11:59 PM EDT Hospital Encounter [facility] [place] [address] [place] [address] Breast tenderness; Breast lump on [...] without internal vascularity. us Primo Lopez MD [facility] US ORDERABLES Final Result documented in this encounter Visit Diagnoses Diagnosis Breast tenderness Mastodynia Breast lump on left side at 2 o'clock position Lump or mass in breast documented in this encounter Care Teams Assembler Clip On Sunglasses Relationship Specialty Start Date End Date Chin Guajardo MD [address] [facility] [address] [facility] [place] [address] PCP - General 10/16/15 documented as of this encounter
--- OUTSIDE RECORDS SUMMARY | 2025-02-24 14:38 | XMS_ITS | Encounter Summary ---
[facility] Address [address] [place] [phone] Care Team Providers Care Mcat Instructor Name Role Phone Chin Guajardo MD Primary Care Provider [phone] Encounter Details Date Type Department Care Team (Late st Contact Info) Description 02/03/2025 Results Follow-Up [facility] [address] [place] [address] Mar Verdin, CANTEEN MANAGER [address] [facility] [address] [place] [address] Social History Tobacco Use Types Packs/Day Years [...] on file documented as of this encounter Plan of Treatment Not on file documented as of this encounter Visit Diagnoses Not on filedocumented in this encounter Care Teams Mcat Instructor Relationship Specialty Start Date End Date Chin Guajardo MD [address] [facility] [address] [place] [address] PCP - General 10/16/15 documented as of this encounter
--- OUTSIDE RECORDS SUMMARY | 2025-02-24 14:38 | XMS_ITS | Encounter Summary ---
[facility] Address [address] [place] [address] Care Team Providers Care Cemetery Workers Supervisor Name Role Phone Chin Guajardo MD Primary Care Provider Encounter Details Date Type Department Care Team (Latest Contact Info) Description 01/27/2025 Travel Social History Tobacco Use Types Packs/Day Years [...] on filedocumented in this encounter Care Teams Cemetery Workers Supervisor Relationship Specialty Start Date End Date Chin Guajardo MD [address] [place] [id number] PCP - General 10/16/15 documented as of this encounter
--- OUTSIDE RECORDS SUMMARY | 2025-02-24 14:38 | XMS_ITS | Clinical Summary ---
Author Organization [facility] Address [address] [place] [address] Care Team Providers Care Regulatory Auditor Name Role Phone Chin Guajardo MD Primary Care Provider [phone] Social History Tobacco Use Types Packs/Day Years Used Date Smoking Tobacco: Passive Smo ke Exposure - Never Smoker Comments Unknown Sex and Gender Information Value Date Recorded Sex Assigned at Not on file Legal Sex Female 8:09 PM EDT Gender Identity Not on file Sexual Orientation Not on file Plan of Treatment Health Maintenance Due Date Last Done Comments [facility]-Depression Screening 1979 [facility]-Infant/Child/Adol SDOH Screenings 1979 [facility]- SDOH Screenings 1997 [facility]-Adult SDOH Screenings 1997 [facility]-DTaP,Tdap,and Td Vaccine s (1 - Tdap) 1998 [facility]-Hepatitis B Vaccines (1 of 3 - 19+ 3-dose series) 1998 [facility]-Pap Smear 2000 HPV Vaccines (1 - 3-dose SCD M series) 2006 [facility]-Cervical Cancer Screening 2009 [facility]-HPV/Cotest 2009 [facility]-JIFMC-04 Vaccine (3 season) 2024 04/17/2021, 03/21/2021 CT Colonography 2024 Colonoscopy 2024 FIT-DNA 2024 FIT 2024 FOBT 2024 Sigmoidoscopy 2024 [facility]-Colorectal Cancer Screening 2024 [facility]-Influenza Vaccine (#1) 2025 [facility]-Zoster Vaccines (1 of 2) 2029 [facility]-Hepatitis A Vaccines Aged Out 019, 07/01/2018 No longer eligible based on patient's age to complete this topic [facility]-HIB Vaccines Aged Out No longer e ligible based on patient's age to complete this topic [facility]-IPV Vaccines Aged Out No longer e ligible based on patient's age to complete this topic [facility]-Pneumococcal Vaccine: Pediatrics (0 to 5 Years) and At-Risk Patients (6 to 49 Years) Aged Out No longer eligible b ased on patient's age to complete this topic [facility]-Rotavirus Vaccines Aged Out No lo nger eligible based on patient's age to complete this topic Insurance [facility] Care Teams Regulatory Auditor Relationship Specialty Start Date End Date Chin Guajardo MD [address] [place] [address] [place] [address] PCP - General Internal Medicine 10/14/22
--- OUTSIDE RECORDS SUMMARY | 2025-02-24 14:38 | XMS_ITS | Encounter Summary ---
[facility] Address [address] [place] [id number] Care Team Providers Care Warehouse Engineer Name Role Phone Chin Guajardo MD Primary Care Provider [phone] Encounter Details Date Type Department Care Team (Latest Contact Info) Description 02/03/2025 Travel Social History Tobacco Use Types Packs/Day [...] on filedocumented in this encounter Care Teams Warehouse Engineer Relationship Specialty Start Date End Date Chin Guajardo MD [address] [place] [id number] PCP - General 10/16/15 documented as of this encounter
--- OUTSIDE RECORDS SUMMARY | 2025-02-24 14:38 | XMS_ITS | Clinical Summary ---
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 call 911 AFTER USE Active fluconazole (DIFLUCAN) 150 MG tablet Take 1 tablet by mouth As Needed (yeast). Take one tablet now and repeat in 3 days 2 tablet 04/06/20 24 025 Discontin ued(*Ther apy completed ) Active Problems No known active problems Encounters Date Type Department Care Team Description 02/03/2025 8:35 AM EDT - 02/03/2025 11:59 PM EDT Hospital Encounter [facility] [place] [address] [facility] [address] [place] [id number] Breast tenderness; Breast lump on left side at 2 o'clock position Discharge Disposition: Home or Self Care 02/03/2025 7:45 AM EDT - 02/03/2025 11:59 PM EDT Hospital Encounter [facility] [place] [address] [facility] [address] [place] [phone] Breast tenderness; Breast lump on left side at 2 o'clock position Discharge Disposition: Home or Self Care 02/03/2025 Results Follow-Up [facility] OBGYN [address] [address] Mar Stover APRN 02/03/2025 Travel 01/27/2025 4:00 PM EDT Office Visit [facility] OBGYN [place] [address] Mar Stover, DESIGN STUDIO CONSULTANT Breast tenderness (Primary Dx); Breast lump on left side at 2 o'clock position 01/27/2025 Travel from Last 3 Months Family History Medical History Relation Name Comments Leukemia Father Heart disease Maternal Grandfather Heart disease Paternal Grandfather Breast cancer Neg Hx Colon cancer Neg Hx Ovarian cancer Neg Hx Uterine cancer Neg Hx Relation Name Status Comments Father Maternal Grandfather Paternal Grandfather Social History Tobacco Use Types Packs/Day Years [...] on file Sexual Orientation Not on file Last Filed Vital Signs Vital Sign Reading [...] Mass Index 28.14 01/27/2025 4:03 PM EDT Plan of Treatment Health Maintenance Due Date Last Done Comments TDAP/TD VACCINES (1 - Tdap) 1998 ANNUAL PHYSICAL 01/16/2021 HEPATITIS C SCREENING 01/16/2021 COVID-19 Vaccine ( season) 2024 04/17/2021, 03/21/2021 COLOGUARD 2024 COLON CANCER SCREENING 5 YEAR SIGMOIDOSCOPY 2024 COLONOSCOPY 2024 COLORECTAL CANCER SCREENING 2024 CT COLONOGRAPHY 2024 FECAL OCCULT BLOOD TEST 2024 FIT Testing (1 year) 2024 Annual Gynecologic Pelvic and Breast Exam 03/26/2025 03/25/2024 INFLUENZA VACCINE 04/06/2025 MAMMOGRAM 02/03/2027 02/03/2025, 06/07, 06/20/2023, Additional history exists PAP SMEAR 03/26/2027 03/26/2024, 1012/2021, 01/18/2021, Additional history exists Pneumococcal Vaccine 0-49 Aged Out No longer eligible based on patient's age to complete this topic Procedures Procedure Name Priority Date/Time Associated Diagnosis Comments US BREAST BILATERAL LIMITED Routine 02/03/2025 9:15 AM EDT Breast tenderness Breast lump on left side at 2 o'clock position MAMMO DIAGNOSTIC DIGITAL TOMOSYNTHESIS BILATERAL W CAD Routine 02/03/2025 8:36 AM EDT Breast tenderness Breast lump on left side at 2 o'clock position LIQUID-BASED PAP SMEAR WITH HPV GENOTYPING REGARDLESS OF INTERPRETATION, [facility] (ARLENE,COR,MAD) Routine 03/26/2024 12:19 PM EDT Women's annual routine gynecological examination Laboratory test Allergy to alpha-gal from Last 3 Months or Most Recently Relevant to Health Maintenance Results * US Breast Bilateral Limited (02/03/2025 [...] 14 mm cyst cluster without internal vascularity. Primo Lopez MD [facility] US ORDERABLES Final Result * Mammo Diagnostic Digital Tomosynthesis Bilateral With [...] 14 mm cyst cluster without internal vascularity. Mar Stover APRN IM MAMMOGRAPHY ORDERABLE S Final Result * LIQUID-BASED PAP SMEAR WITH HPV GENOTYPING REGARDLESS OF INTERPRETATION (ARLENE,COR,MAD) (03/26/2024 12:19 PM EDT) Reference Lab Report [facility] [address] [place] [address] or [phone] Hang James M.D., Straightener And Aligner PATIENT NAME LABORATORY NO. RADHA SMITH [id number] AGE SEX SSN CLIENT REF # [facility] ([place]) 43 1980 F [id number] Kalyyn JENIFER YOUSIF REQUESTING Lavelle ATTENDING MJb. COPY TO. [place] [address] MAR STOVER DATE COLLECTED DATE RECEIVED DATE REPORTED 03/26/2024 03/29/2024 04/06/2024 ThinPrep Pap with Cytyc Imaging DIAGNOSIS: Negative for intraepithelial lesion or malignancy Multiple factors can influence accuracy of Pap tests; therefore, screening at regular intervals is necessary for early cancer detection. COMMENT: FUNGAL ORGANISMS MORPHOLOGICALLY CONSISTENT WITH ILANA SPECIES ARE PRESENT. SPECIMEN ADEQUACY: SATISFACTORY FOR EVALUATION Transformation zone is absent or insufficient. Partially obscuring inflammation is present. SOURCE OF SPECIMEN: CERVICAL/ENDOCERV ICAL SLIDES: 1 CLINICAL HISTORY: Women's annual routine gynecological examination Laboratory test Allergy to alpha-gal HPV HR-HPV POOL: Negative The Aptima HPV assay is an in vitro nucleic acid amplification test for the qualitative detection of E6/E7 viral messenger RNA from 14 high risk types of HPV in cervical specimens. The high risk HPV types detected include: 16, 18, 31, 33, 35, 39, 45, 51, 52, 56, 58, 59, 66, 68 DATA COLLECTION SPECIALIST: SLIME NIEVES (ASCP) CPT CODES: [id number], [id number] 04/06/2024 8:48 AM EDT [facility] ThinPrep Vial Collection / Unknown 03/26/2024 12:19 PM EDT 03/26/2024 12:19 PM EDT Mar Stover DESIGN STUDIO CONSULTANT PATHOLOGY/CYTOLOGY ORDERA BLES Final Result [facility]
[address] [place] [address], from Last 3 Months or Most Recently Relevant to Health Maintenance [place] [address] [place] [address] PPO Care Teams Well Drill Operator Relationship Specialty Start Date End Date Chin Guajardo MD [address] [facility] [address] [place] [address] PCP - General 10/16/15
[2025-02-24 15:45] LABS: Hematocrit 35.7 % (37.0-47.0); Hemoglobin 10.7 g/dL (12.2-16.2); Immature Granulocytes % 0.3 %; Mean Corpuscular HGB Conc 30.0 g/dL (31.8-35.4); Mean Corpuscular Hemoglobin 28.5 pg (27.0-31.2); Mean Corpuscular Volume 95.2 fl (81-99); Nucleated Red Blood Cells % 0 %; Platelet Count 166 K/mm3 (142-424); Red Blood Count 3.75 M/mm3 (4.20-5.40); Red Cell Distribution Width-SD 53.9 fL; White Blood Count 7.7 K/mm3 (4.8-10.8)
[2025-02-24 17:05] LABS: Ferritin 4.50 ng/ml (6.24-137)
[2025-02-24 17:29] LABS: Iron 41 ug/dL (37-170)
[2025-02-24 17:39] LABS: Total Iron Binding Capacity 455 ug/dL (265-497)
== END 2025-02-24 23:59 | disposition home or self-care (01) ==
LOC: LAB 14:34
PROVIDERS: PCP Internal Medicine Adolescent Medicine; Visit Provider Internal Medicine Medical Oncology
DX: D50.0 Iron deficiency anemia secondary to blood loss (chronic) (principal)
CPT/HCPCS: 36415; 82728; 83540; 83550; 85025

== ENCOUNTER 2025-03-16 12:22 | Outpatient (CLI) | payer OTHER, BC, SELFPAY ==
--- OUTSIDE RECORDS SUMMARY | 2025-01-27 16:00 | XMS_ITS | Encounter Summary ---
[facility] Address [address] [place] [address] Care Team Providers Care Line Haul Driver Name Role Phone Chin Guajardo MD Primary Care Provider [phone] Reason for Referral * Diagnostic Imaging (Routine) - Closed Specialty Diagnoses / Procedures Referred By Leigh t Referred To Contact Radiology Diagnoses Breast tenderness Breast lump on left side at 2 o'clock position Procedures Mammo Diagnostic Digital Tomosynthesis Bilateral With CAD CHG DIGITAL BREAST TOMOSYNTHESIS BILATERAL [place] TOMOSYNTHESIS, MAMMO Mar Verdin, CORBY [address] [facility] [address] [place] [address] Phone: tel: fax: [facility] [address] [place] [address] Phone: tel: Referral ID Status Reason Start Date Expiration Date Visits Re quested Visits Authorized [id number] Closed 01/27/2025 04/28/2026 1 1 Reason for Visit * Reason Comments Breast Problem Encounter Details Date Type Department Care Team (Late st Contact Info) Description 01/27/2025 4:00 PM EDT Office Visit [facility] OBGYN [address] [place] [address] Mar Verdin DEVELOPMENT EXPERT [address] [facility] [address] [place] [address] Breast tenderness (Primary Dx); Breast lump on [...] Tomosynthesis Bilateral With CAD by Mar Verdin, DEVELOPMENT EXPERT 06/25/2024 Mammo Screening Digital Tomosynthesis Bilateral With [...] historical information as entered above. Mar Blackmon, DEVELOPMENT EXPERT Objective BP 108/64 Resp 18 Ht 162.6 [...] breast documented in this encounter Care Teams Line Haul Driver Relationship Specialty Start Date End Date Chin Guajardo MD [address] [place] [facility] [address] [place] [phone] PCP - General 10/16/15 documented as of this encounter
--- OUTSIDE RECORDS SUMMARY | 2025-02-03 07:45 | XMS_ITS | Encounter Summary ---
Author Organization [facility] Address [address] [place] [id number] Care Team Providers Care Senior Project Manager Engineering Name Role Phone Chin Guajardo MD Primary Care Provider [phone] Reason for Referral * Diagnostic Imaging (Routine) - Closed Specialty Diagnoses / Procedures Referred By Leigh montoya Referred To Contact Radiology Diagnoses Breast tenderness Breast lump on left side at 2 o'clock position Procedures Mammo Diagnostic Digital Tomosynthesis Bilateral With CAD CHG DIGITAL BREAST TOMOSYNTHESIS BILATERAL [place] TOMOSYNTHESIS, MAMMO Mar Verdin, CORBY [address] [place] [address] Phone: tel: fax: [facility] [address] [place] [address] Phone: tel: Referral ID Status Reason Start Date Expiration Date Visits Re quested Visits Authorized [id number] Closed 01/27/2025 04/28/2026 1 1 Reason for Visit * Diagnostic Imaging (Routine) - Closed Specialty Diagnoses / Procedures Referred By Leigh montoya Referred To Contact Radiology Diagnoses Breast tenderness Breast lump on left side at 2 o'clock position Procedures Mammo Diagnostic Digital Tomosynthesis Bilateral With CAD CHG DIGITAL BREAST TOMOSYNTHESIS BILATERAL [place] TOMOSYNTHESIS, MAMMO Mar Verdin APRN [address] [facility] [address] [place] [address] Phone: tel: fax: [facility] [address] [place] [address] Phone: tel: Referral ID Status Reason Start Date Expiration Date Visits Re quested Visits Authorized [id number] Closed 01/27/2025 04/28/2026 1 1 Encounter Details Date Type Department Care Team (Latest Contact Info) Description 02/03/2025 7:45 AM EDT - 02/03/2025 11:59 PM EDT Hospital Encounter [facility] [place] [address] [place] [address] Breast tenderness; Breast lump on left side at 2 o'clock position Discharge Disposition: Home or Self Care Social History Tobacco Use Types Packs/Day Years Used Date Smoking Tobacco: Never Smokeless Tobacco: Never Alcohol Use Standard Drinks/Week Comments Not Currently 0 (1 standard drink = 0.6 oz pur e alcohol) Comments No Sex and Gender Information Value Date Recorded Sex Assigned at Not on file Legal Sex Female 1:43 PM EDT Gender Identity Not on file Sexual Orientation Not on file documented as of this encounter Medications at Time of Discharge EPINEPHrine (EpiPen 2-Damián) 0.3 MG/0.3ML solution auto-injector injection INJECT THE CONTENTS OF 1 AUTO-INJECTOR INTRAMUSCULARLY ONCE NEEDED FOR ANAPHYLAXIS REACTION. call 911 AFTER USE documented as of this encounter Plan of Treatment Not on file documented as of this encounter Procedures Procedure Name Priority Date/Time Associated Diagnosis Comments MAMMO DIAGNOSTIC DIGITAL TOMOSYNTHESIS BILATERAL W CAD Routine 02/03/2025 8:36 AM EDT Breast tenderness Breast lump on left side at 2 o'clock position documented in this encounter Results * Mammo Diagnostic Digital [...] in this encounter Visit Diagnoses Diagnosis Breast tenderness Mastodynia Breast lump on left side at 2 o'clock position Lump or mass in breast documented in this encounter Care Teams Senior Project Manager Engineering Relationship Specialty Start Date End Date Chin Guajardo MD [facility] [address] [address] PCP - General 10/16/15 documented as of this encounter
--- OUTSIDE RECORDS SUMMARY | 2025-02-03 08:35 | XMS_ITS | Encounter Summary ---
Author Organization [facility]stem Address [address] [place] [address] Care Team Providers Care Lymphedema Therapist Name Role Phone Chin Guajardo MD Primary Care Provider [phone] Reason for Referral * Diagnostic Imaging (Routine) - Closed Specialty Diagnoses / Procedures Referred By Contac t Referred To Contact Radiology Diagnoses Breast tenderness Breast lump on left side at 2 o'clock position Procedures US Breast Bilateral Limited Mar Verdin, SHELL CORE AND MOLDING SUPERVISOR [address] [place] [address] Phone: tel: fax: [facility] [address] [place] [phone] Phone: tel: Referral ID Status Reason Start Date Expiration Date Visits Re quested Visits Authorized [id number] Closed 02/03/2025 05/05/2026 1 1 Reason for Visit * Diagnostic Imaging (Routine) - Closed Specialty Diagnoses / Procedures Referred By Contac t Referred To Contact Radiology Diagnoses Breast tenderness Breast lump on left side at 2 o'clock position Procedures US Breast Bilateral Limited Mar Verdin, CORBY [address] [place] [id number] Phone: tel: fax: [facility] [address] [place] [phone] Phone: tel: Referral ID Status Reason Start Date Expiration Date Visits Re quested Visits Authorized [id number] Closed 02/03/2025 05/05/2026 1 1 Encounter Details Date Type Department Care Team (Latest Contact Info) Description 02/03/2025 8:35 AM EDT - 02/03/2025 11:59 PM EDT Hospital Encounter [facility] [place] [address] [place] [address] Breast tenderness; Breast lump on [...] without internal vascularity. us Primo Lopez MD [facility] [place] ORDERABLES Final Result documented in this encounter Visit Diagnoses Diagnosis Breast tenderness Mastodynia Breast lump on left side at 2 o'clock position Lump or mass in breast documented in this encounter Care Teams Lymphedema Therapist Relationship Specialty Start Date End Date Chin Guajardo MD [address] [facility] [address] [facility] [place] [address] PCP - General 10/16/15 documented as of this encounter
--- OUTSIDE RECORDS SUMMARY | 2025-03-16 12:24 | XMS_ITS | Encounter Summary ---
[facility] Address [address] [place] [id number] Care Team Providers Care Cellular Plastics Cutter Name Role Phone Chin Guajardo MD Primary [...] on filedocumented in this encounter Care Teams Cellular Plastics Cutter Relationship Specialty Start Date End Date Chin Guajardo MD [address] [place] [id number] PCP - General 10/16/15 documented as of this encounter
--- OUTSIDE RECORDS SUMMARY | 2025-03-16 12:25 | XMS_ITS | Clinical Summary ---
Author Organization [facility] Address [address] [place] [address] Care Team Providers Care Methods Specialist Engineer Name Role Phone Chin Guajardo MD Primary Care Provider [phone] Social History Tobacco Use Types Packs/Day Years Used Date Smoking Tobacco: Passive Smo ke Exposure - Never Smoker Comments Unknown Sex and Gender Information Value Date Recorded Sex Assigned at Not on file Legal Sex Female 8:09 PM EDT Gender Identity Not on file Sexual Orientation Not on file Plan of Treatment Health Maintenance Due Date Last Done Comments [facility]-Depression Screening 1980 [facility]-/Child/Adol SDOH Screenings 1980 [facility]- SDOH Screenings 1997 [facility]-Adult SDOH Screenings 1997 [facility]-DTaP,Tdap,and Td Vaccine s (1 - Tdap) 1998 [facility]-Hepatitis B Vaccines (1 of 3 - 19+ 3-dose series) 1998 [facility]-Pap Smear 2000 HPV Vaccines (1 - 3-dose SCD M series) 2006 [facility]-Cervical Cancer Screening 2009 [facility]-HPV/Cotest 2009 CT Colonography 2024 Colonoscopy 2024 FIT-DNA 2024 FIT 2024 FOBT 2024 Sigmoidoscopy 2024 [facility]-Colorectal Cancer Screening 2024 [id number] Vaccine ( season) 2025 04/17/2021, 03/21/2021 [facility]-Influenza Vaccine (#1) 2025 [facility]-Zoster Vaccines (1 [...] patient's age to complete this topic Insurance [facility] Care Teams Methods Specialist Engineer Relationship Specialty Start Date End Date Chin Guajardo MD [address] [place] [id number] PCP - General Internal Medicine 10/14/22
--- OUTSIDE RECORDS SUMMARY | 2025-03-16 12:25 | XMS_ITS | Encounter Summary ---
[facility] Address [address] [place] [id number] Care Team Providers Care Digital Service Engineer Name Role Phone Chin Guajardo MD [...] on filedocumented in this encounter Care Teams Digital Service Engineer Relationship Specialty Start Date End Date Chin Guajardo MD [address] [place] [id number] PCP - General 10/16/15 documented as of this encounter
--- OUTSIDE RECORDS SUMMARY | 2025-03-16 12:25 | XMS_ITS | Clinical Summary ---
[facility] Address [address] [place] [address] Care Team Providers Care Agriculture Research Director Name Role Phone Chin Guajardo MD Primary Care Provider [phone] Allergies Active Allergy Reactions Criticality Noted Date Comments Alpha-Gal Anaphylaxis High 03/04/2024 Latex Swelling 04/11/2022 Medications EPINEPHrine (EpiPen 2-Damián) 0.3 MG/0.3ML solution auto-injector injection INJECT THE CONTENTS OF 1 AUTO-INJECTOR INTRAMUSCULARLY ONCE NEEDED FOR ANAPHYLAXIS REACTION. call 911 AFTER USE Active Active Problems No known active problems Encounters Date Type Department Care Team Description 02/03/2025 8:35 AM EDT - 02/03/2025 11:59 PM EDT Hospital Encounter [facility] [place] [address] [facility] [address] [place] [phone] Breast tenderness; Breast lump on left side at 2 o'clock position Discharge Disposition: Home or Self Care 02/03/2025 7:45 AM EDT - 02/03/2025 11:59 PM EDT Hospital Encounter [facility] [place] [address] [facility] [address] [place] [address] Breast tenderness; Breast lump on left side at 2 o'clock position Discharge Disposition: Home or Self Care 02/03/2025 Results Follow-Up [facility] OBGYN [address] [place] [address] Mar Stover, MOTION AND TIME STUDY TEACHER 02/03/2025 Travel 01/27/2025 4:00 PM EDT Office Visit [facility] OBGYN [address] [place] [place] [address] Mar Stover, MOTION AND TIME STUDY TEACHER Breast tenderness (Primary Dx); Breast lump on [...] ANNUAL PHYSICAL 01/16/2021 HEPATITIS C SCREENING 01/16/2021 COLOGUARD 2024 COLON CANCER SCREENING 5 YEAR SIGMOIDOSCOPY 2024 COLONOSCOPY 2024 COLORECTAL CANCER SCREENING 2024 CT COLONOGRAPHY 2024 FECAL OCCULT BLOOD TEST 2024 FIT Testing (1 year) 2024 COVID-19 Vaccine ( season) 2025 04/17/2021, 03/21/2021 Annual Gynecologic Pelvic and Breast Exam 03/26/2025 03/25/2024 INFLUENZA VACCINE 04/06/2025 MAMMOGRAM 02/03/2027 02/03/2025, 06/07, 06/20/2023, Additional history exists PAP SMEAR 03/26/2027 03/26/2024, 100 12/2021, 01/18/2021, Additional history exists Pneumococcal Vaccine 0-49 [...] cluster without internal vascularity. Primo Lopez MD IMG US ORDERABLES Final Result * Mammo Diagnostic [...] cyst cluster without internal vascularity. Mar Stover MOTION AND TIME STUDY TEACHER IMG MAMMOGRAPHY ORDERABLE S Final Result * LIQUID-BASED PAP SMEAR WITH HPV GENOTYPING REGARDLESS OF INTERPRETATION (ARLENE,COR,MAD) (03/26/2024 12:19 PM EDT) Reference Lab Report [facility] [address] [place] [address] or [phone] Hang James M.D., Driver Guide PATIENT NAME LABORATORY NO. RADHA SMITH [id number] AGE SEX SSN CLIENT REF # [facility] ([place]) 43 1980 F [id number] Kaylyn YOUSIF REQUESTING Lavelle [place] [address] MAR STOVER DATE COLLECTED DATE RECEIVED DATE [...] 51, 52, 56, 58, 59, 66, 68 BOTTLING SUPERVISOR: SLIME NIEVES (ASCP) CPT CODES: [id number], [id number] 04/06/2024 8:48 AM EDT [facility] ThinPrep Vial Collection / Unknown 03/26/2024 12:19 PM EDT 03/26/2024 12:19 PM EDT Mar Stover MOTION AND TIME STUDY TEACHER PATHOLOGY/CYTOLOGY ORDERA BLES Final Result [facility]
[address] [place] [address], from Last 3 Months or Most Recently Relevant to Health Maintenance Insurance R [facility] PPO Care Teams Agriculture Research Director Relationship Specialty Start Date End Date Chin Guajardo MD [address] [place] [address] [place] [address] PCP - General 10/16/15
--- OUTSIDE RECORDS SUMMARY | 2025-03-16 12:25 | XMS_ITS | Encounter Summary ---
[facility] Address [address] [place] [phone] Care Team Providers Care Tray Delivery Aide Name Role Phone Chin Gaujardo MD Primary Care Provider [phone] Encounter Details Date Type Department Care Team (Late st Contact Info) Description 02/03/2025 Results Follow-Up [facility] OBGYN [address] [place] [address] Mar Verdin, MARKETING PRODUCER [address] [facility] [address] [place] [address] Social History Tobacco Use Types Packs/Day Years [...] on filedocumented in this encounter Care Teams Tray Delivery Aide Relationship Specialty Start Date End Date Chin Guajardo MD [facility] [facility] [address] [place] [address] PCP - General 10/16/15 documented as of this encounter
[2025-03-16] MEDS: FAMOTIDINE 20MG/2ML VIAL 20 MG IV (12:58)
[2025-03-16] MEDS: DEXAMETHASONE 4MG/ML 1ML VIAL 4 MG IV (12:58)
[2025-03-16 13:30] VITALS: BP 141/82; PULSE 68; RESP 17; TEMP 36.6; O2SAT 100
[2025-03-16] MEDS: ferumoxytoL 510 MG in 0.9 % SODIUM CHLORIDE 50 ML 268 MG IV (13:30)
[2025-03-16 14:00] VITALS: BP 124/74; PULSE 61; RESP 17
[2025-03-16 14:45] VITALS: BP 136/73; PULSE 63; RESP 17
== END 2025-03-16 14:45 | disposition home or self-care (01) ==
LOC: INF 12:23
PROVIDERS: PCP Internal Medicine Adolescent Medicine; Visit Provider Internal Medicine Medical Oncology
DX: D50.0 Iron deficiency anemia secondary to blood loss (chronic) (principal)
CPT/HCPCS: 96365; J1100; J1200; Q0138

== ENCOUNTER 2025-03-21 12:07 | Outpatient (CLI) | payer OTHER, BC, SELFPAY ==
--- OUTSIDE RECORDS SUMMARY | 2025-01-27 16:00 | XMS_ITS | Encounter Summary ---
[facility] Address [address] [place] [address] Care Team Providers Care Color Shop Helper Name Role Phone Chin Guajardo MD Primary Care Provider [phone] Reason for Referral * Diagnostic Imaging (Routine) - Closed Specialty Diagnoses / Procedures Referred By Leigh t Referred To Contact Radiology Diagnoses Breast tenderness Breast lump on left side at 2 o'clock position Procedures Mammo Diagnostic Digital Tomosynthesis Bilateral With CAD CHG DIGITAL BREAST TOMOSYNTHESIS BILATERAL [place] TOMOSYNTHESIS, MAMMO Mar Verdin, CORBY [address] [facility] [address] [place] [address] Phone: tel: fax: [facility] [address] [place] [address] Phone: tel: Referral ID Status Reason Start Date Expiration Date Visits Re quested Visits Authorized [id number] Closed 01/27/2025 04/28/2026 1 1 Reason for Visit * Reason Comments Breast Problem Encounter Details Date Type Department Care Team (Late st Contact Info) Description 01/27/2025 4:00 PM EDT Office Visit [facility] OBGYN [address] [place] [address] Mar Verdin SHAREPOINT NET DEVELOPER [address] [facility] [address] [place] [address] Breast tenderness (Primary Dx); Breast lump on [...] Tomosynthesis Bilateral With CAD by Mar Verdin, SHAREPOINT NET DEVELOPER 06/25/2024 Mammo Screening Digital Tomosynthesis Bilateral With [...] historical information as entered above. Mar Blackmon, SHAREPOINT NET DEVELOPER Objective BP 108/64 Resp 18 Ht 162.6 [...] breast documented in this encounter Care Teams Color Shop Helper Relationship Specialty Start Date End Date Chin Guajardo MD [address] [place] [facility] [address] [place] [id number] PCP - General 10/16/15 documented as of this encounter
--- OUTSIDE RECORDS SUMMARY | 2025-02-03 07:45 | XMS_ITS | Encounter Summary ---
[facility] Address [address] [place] [id number] Care Team Providers Care Sql Server Consultant Name Role Phone Chin Guajardo MD Primary Care Provider [phone] Reason for Referral * Diagnostic Imaging (Routine) - Closed Specialty Diagnoses / Procedures Referred By Leigh montoya Referred To Contact Radiology Diagnoses Breast tenderness Breast lump on left side at 2 o'clock position Procedures Mammo Diagnostic Digital Tomosynthesis Bilateral With CAD CHG DIGITAL BREAST TOMOSYNTHESIS BILATERAL [place] TOMOSYNTHESIS, MAMMO Mar Verdin, COR[address] [place] [address] Phone: tel: fax: [facility] [address] [place] [address] Phone: tel: Referral ID Status Reason Start Date Expiration Date Visits Re quested Visits Authorized [id number] Closed 01/27/2025 04/28/2026 1 1 Reason for Visit * Diagnostic Imaging (Routine) - Closed Specialty Diagnoses / Procedures Referred By Leigh montoya Referred To Contact Radiology Diagnoses Breast tenderness Breast lump on left side at 2 o'clock position Procedures Mammo Diagnostic Digital Tomosynthesis Bilateral With CAD CHG DIGITAL BREAST TOMOSYNTHESIS BILATERAL [place] TOMOSYNTHESIS, MAMMO Mar Verdin APRN [address] [facility] [address] [place] [address] Phone: tel: fax: [facility] [address] [place] [address] Phone: tel: Referral ID Status Reason Start Date Expiration Date Visits Re quested Visits Authorized [id number] Closed 01/27/2025 04/28/2026 1 1 Encounter Details Date Type Department Care Team (Latest Contact Info) Description 02/03/2025 7:45 AM EDT - 02/03/2025 11:59 PM EDT Hospital Encounter [facility] [place] [address] [place] [address] Breast tenderness; Breast lump on [...] breast documented in this encounter Care Teams Sql Server Consultant Relationship Specialty Start Date End Date Chin Guajardo MD [facility] [address] [address] PCP - General 10/16/15 documented as of this encounter
--- OUTSIDE RECORDS SUMMARY | 2025-02-03 08:35 | XMS_ITS | Encounter Summary ---
Author Organization [facility] Address [address] [place] [address] Care Team Providers Care Special Programs Director Name Role Phone Chin Guajardo MD Primary Care Provider [phone] Reason for Referral * Diagnostic Imaging (Routine) - Closed Specialty Diagnoses / Procedures Referred By Contac t Referred To Contact Radiology Diagnoses Breast tenderness Breast lump on left side at 2 o'clock position Procedures US Breast Bilateral Limited Mar Verdin, ICE CARVER [address] [place] [address] Phone: tel: fax: [facility] [address] [place] [phone] Phone: tel: Referral ID Status Reason Start Date Expiration Date Visits Re quested Visits Authorized Closed 02/03/2025 05/05/2026 1 1 Reason for Visit * Diagnostic Imaging (Routine) - Closed Specialty Diagnoses / Procedures Referred By Contac t Referred To Contact Radiology Diagnoses Breast tenderness Breast lump on left side at 2 o'clock position Procedures US Breast Bilateral Limited Mar Verdin, CORBY [address] [place] [id number] Phone: tel: fax: [facility] [address] [place] [phone] Phone: tel: Referral ID Status Reason Start Date Expiration Date Visits Re quested Visits Authorized [id number] Closed 02/03/2025 05/05/2026 1 1 Encounter Details Date Type Department Care Team (Latest Contact Info) Description 02/03/2025 8:35 AM EDT - 02/03/2025 11:59 PM EDT Hospital Encounter [facility] [place] [address] [place] [address] Breast tenderness; Breast lump on [...] Procedure Name Priority Date/Time Associated Diagnosis Comments US BREAST BILATERAL LIMITED Routine 02/03/2025 9:15 AM EDT Breast tenderness Breast lump on left side at 2 o'clock position documented in this encounter Results * US Breast Bilateral Limited (02/03/2025 9:15 AM EDT) Anatomical Region Laterality Modality Breast Bilateral Ultrasound 02/03/2025 9:12 AM EDT Impressions 02/03/2025 9:15 [...] mm cyst cluster without internal vascularity. us Primo Lopez MD [facility] US ORDERABLES Final Result documented in this encounter Visit Diagnoses Diagnosis Breast tenderness Mastodynia Breast lump on left side at 2 o'clock position Lump or mass in breast documented in this encounter Care Teams Special Programs Director Relationship Specialty Start Date End Date Chin Guajardo MD [address] [facility] [address] [facility] [place] [address] PCP - General 10/16/15 documented as of this encounter
--- OUTSIDE RECORDS SUMMARY | 2025-03-21 12:11 | XMS_ITS | Encounter Summary ---
[facility] Address [address] [place] [phone] Care Team Providers Care Citrix Architect Name Role Phone Chin Guajardo MD Primary Care Provider [phone] Encounter Details Date Type Department Care Team [...] on filedocumented in this encounter Care Teams Citrix Architect Relationship Specialty Start Date End Date Chin Guajardo MD [address] [place] [id number] PCP - General 10/16/15 documented as of this encounter
--- OUTSIDE RECORDS SUMMARY | 2025-03-21 12:11 | XMS_ITS | Encounter Summary ---
[facility] [address] [place] [phone] Care Team Providers Care Oracle Dba Name Role Phone Chin Guajardo MD Primary Care Provider [phone] Encounter Details Date Type Department Care Team (Late st Contact Info) Description 02/03/2025 Results Follow-Up [facility] [address] [place] [address] Mar Verdin, OIL HEATER INSTALLER [address] [facility] [address] [place] [address] Social History Tobacco Use Types Packs/Day Years [...] on filedocumented in this encounter Care Teams Oracle Dba Relationship Specialty Start Date End Date Chin Guajardo MD [address] [facility] [address] [place] [address] PCP - General 10/16/15 documented as of this encounter
--- OUTSIDE RECORDS SUMMARY | 2025-03-21 12:11 | XMS_ITS | Encounter Summary ---
Author Organization [facility] Address [address] [place] [id number] Care Team Providers Care Certified Nurse Midwife Name Role Phone Chin Guajardo MD Primary [...] on filedocumented in this encounter Care Teams Certified Nurse Midwife Relationship Specialty Start Date End Date Chin Guajardo MD [address] [place] [id number] PCP - General 10/16/15 documented as of this encounter
--- OUTSIDE RECORDS SUMMARY | 2025-03-21 12:11 | XMS_ITS | Clinical Summary ---
[facility] Organization [facility] Address [address] [place] [address] Care Team Providers Care Synthetic Plasterer Name Role Phone Chin Guajardo MD Primary Care Provider [phone] Allergies Active Allergy Reactions Criticality Noted Date [...] 11:59 PM EDT Hospital Encounter [facility] [place] [address] [facility] [address] [place] [phone] Breast tenderness; Breast lump on left side at 2 o'clock position Discharge Disposition: Home or Self Care 02/03/2025 7:45 AM EDT - 02/03/2025 11:59 PM EDT Hospital Encounter [facility] [place] [address] [facility] [address] [place] [address] Breast tenderness; Breast lump on left side at 2 o'clock position Discharge Disposition: Home or Self Care 02/03/2025 Results Follow-Up [facility] OBGYN [address] [place] [address] Mar Stover, HEDGE FUND TRADER 02/03/2025 Travel 01/27/2025 4:00 PM EDT Office Visit [facility] OBGYN [address] [place] [address] Mar Stover, HEDGE FUND TRADER Breast tenderness (Primary Dx); Breast lump on [...] cyst cluster without internal vascularity. Mar Stover HEDGE FUND TRADER IMG MAMMOGRAPHY ORDERABLE S Final Result * LIQUID-BASED PAP SMEAR WITH HPV GENOTYPING REGARDLESS OF INTERPRETATION (ARLENE,COR,MAD) (03/26/2024 12:19 PM EDT) Reference Lab Report [facility] [address] [place] [address] or [phone] Hang James M.D., Check Grader PATIENT NAME LABORATORY NO. RADHA SMITH [id number] AGE SEX SSN CLIENT REF # [facility] ([place]) 43 1980 F [id number] Kaylyn YOUSIF REQUESTING Lavelle [place] [address] MAR STOVER DATE COLLECTED DATE RECEIVED DATE [...] 51, 52, 56, 58, 59, 66, 68 PHARMACY ASSOCIATE: SLIME NIEVES (ASCP) CPT CODES: [id number], [id number] 04/06/2024 8:48 AM EDT [facility] ThinPrep Vial Collection / Unknown 03/26/2024 12:19 PM EDT 03/26/2024 12:19 PM EDT Mar Stover HEDGE FUND TRADER PATHOLOGY/CYTOLOGY ORDERA BLES Final Result [facility]
[address] [place] [address], from Last 3 Months or Most Recently Relevant to Health Maintenance Insurance R [facility] PPO Care Teams Synthetic Plasterer Relationship Specialty Start Date End Date Chin Guajardo MD [address] [place] [address] PCP - General 10/16/15
--- OUTSIDE RECORDS SUMMARY | 2025-03-21 12:11 | XMS_ITS | Clinical Summary ---
Author Organization [facility] Address [address] [place] [address] Care Team Providers Care Production Line Welder Name Role Phone Chin Guajardo MD Primary Care Provider [phone] Social History Tobacco Use Types Packs/Day Years [...] 2024 Sigmoidoscopy 2024 [facility]-Colorectal Cancer Screening 2024 [id number] Vaccine ( season) 2025 04/17/2021, 03/21/2021 [facility]-Influenza [...] patient's age to complete this topic Insurance [facility] Care Teams Production Line Welder Relationship Specialty Start Date End Date Chin Guajardo MD [address] [place] [address] PCP - General Internal Medicine 10/14/22
[2025-03-21] MEDS: FAMOTIDINE 20MG/2ML VIAL 20 MG IV (12:14)
[2025-03-21] MEDS: DEXAMETHASONE 4MG/ML 1ML VIAL 4 MG IV (12:23)
[2025-03-21] MEDS: ferumoxytoL 510 MG in 0.9 % SODIUM CHLORIDE 50 ML 268 MG IV (13:10)
[2025-03-21 13:30] VITALS: BP 131/68; PULSE 80
[2025-03-21 14:05] VITALS: BP 126/71; PULSE 80
== END 2025-03-21 14:10 | disposition home or self-care (01) ==
LOC: INF 12:08
PROVIDERS: PCP Internal Medicine Adolescent Medicine; Visit Provider Internal Medicine Medical Oncology
DX: D50.0 Iron deficiency anemia secondary to blood loss (chronic) (principal)
CPT/HCPCS: 96365; J1100; J1200; Q0138

== ENCOUNTER 2025-05-08 10:28 | Emergency (ER) | payer OTHER, BC, SELFPAY ==
[2025-05-08 10:28] VITALS: BP 151/79; PULSE 75; RESP 20; TEMP 37; O2SAT 100; BMI 29.2
[2025-05-08 10:33] VITALS: BP 151/79; PULSE 72; O2SAT 100
--- OUTSIDE RECORDS SUMMARY | 2025-05-08 10:41 | XMS_ITS | Encounter Summary ---
Author Organization [facility] Address [address] [place] [address] Care Team Providers Care Supervisor Tower Name Role Phone Chin Guajardo MD Primary Care Provider [phone] Reason for Referral * Consultation (Routine) - Authorized Specialty Diagnoses / Procedures Referred By Contac t Referred To Contact Allergy and Immunology / Allergy Diagnoses Allergy to alpha-gal Chin Guajardo MD [address] [place] [address] Phone: tel: fax: [facility] [address] [facility], [address] [place] [address] Phone: tel: fax: Referral ID Status Reason Start Date Expiration Date Visits Requested Visits Authorized [id number] Authorized Specialty Services Required 10/28/2026 1 1 Encounter Details Date Type Department Care Team (Late st Contact Info) Description 04/28/2025 [facility] [address] [place] [address] Chin Guajardo MD [address] [place] [address] Allergy to alpha-gal (Primary Dx) Social History Tobacco Use Types Packs/Day Years Used Date Smoking Tobacco: Passive Smo ke Exposure - Never Smoker Comments Unknown Sex and Gender Information Value Date Recorded Sex Assigned at Not on file Legal Sex Female 8:09 PM EDT Gender Identity Not on file Sexual Orientation Not on file documented as of this encounter Plan of Treatment Scheduled Referrals Name Type Priority Associated Diagnoses Order Schedule Ambulatory Referral to Allergy and Immunology Outpatient Referral Routine Allergy to alpha-gal Expected: 04/28/2025 (Approximate), Expires: 10/30/2026 documented as of this encounter Visit Diagnoses Diagnosis Allergy to alpha-gal- Primary documented in this encounter Care Teams Supervisor Tower Relationship Specialty Start Date End Date Chin Guajardo MD [address] [place] [address] PCP - General Internal Medicine 10/14/22 documented as of this encounter
--- OUTSIDE RECORDS SUMMARY | 2025-05-08 10:41 | XMS_ITS | Clinical Summary ---
Author Organization [facility] Address [address] [place] [address] Care Team Providers Care Biophysics Teacher Name Role Phone Chin Guajardo MD Primary Care Provider [phone] Encounters Date Type Department Care Team Description 04/28/2025 Community [facility] [address] [place] [address] Chin Guajardo MD Allergy to alpha-gal (Primary Dx) from Last 3 Months Social History Tobacco Use Types Packs/Day Years [...] 19+ 3-dose series) 1998 [facility]-Pap Smear 2000 [facility]-Cervical Cancer Screening 2009 [facility]-HPV/Cotest 2009 CT Colonography 2024 Colonoscopy 2024 FIT-DNA 2024 FIT 2024 FOBT 2024 Sigmoidoscopy 2024 [facility]-Colorectal Cancer Screening 2024 [id number] Vaccine ( season) 2025 04/17/2021, 03/21/2021 [facility]-Influenza Vaccine (#1) 2025 [facility]-Zoster Vaccines (1 of 2) 2029 [facility]-Hepatitis A Vaccines Aged Out 019, 07/01/2018 No longer eligible based on patient's age to complete this topic HPV Vaccines Aged Out No longer eligi ble based on patient's age to complete this [...] patient's age to complete this topic Insurance [facility] Care Teams Biophysics Teacher Relationship Specialty Start Date End Date Chin Guajardo MD [address] [place] [address] PCP - General Internal Medicine 10/14/22
--- OUTSIDE RECORDS SUMMARY | 2025-05-08 10:41 | XMS_ITS | Encounter Summary ---
[facility] Address [address] [place] [address] Care Team Providers Care Glass Block Bender Name Role Phone Chin Guajardo MD Primary Care Provider [phone] Encounter Details Date Type Department Care Team (Late st Contact Info) Description 02/03/2025 Results Follow-Up [facility] OBGYN [address] [place] [address] Mar Verdin, SUPPLY CHAIN ANALYST [address] [facility] [address] [place] [address] Social History Tobacco Use Types Packs/Day Years [...] on filedocumented in this encounter Care Teams Glass Block Bender Relationship Specialty Start Date End Date Chin Guajardo MD [facility] [facility] [address] [place] [id number] PCP - General 10/16/15 documented as of this encounter
--- OUTSIDE RECORDS SUMMARY | 2025-05-08 10:41 | XMS_ITS | Clinical Summary ---
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 call 911 AFTER USE Active Active Problems No known active problems Family History Medical History Relation Name Comments [...] TEST 2024 FIT Testing (1 year) 2024 INFLUENZA VACCINE 02/04/2025 Annual Gynecologic Pelvic and Breast Exam 03/26/2025 03/25/2024 MAMMOGRAM 02/03/2027 02/03/2025, 12, 06/20/2023, Additional history exists PAP SMEAR 03/26/2027 03/26/2024, 12/2021, 01/18/2021, Additional history exists Pneumococcal Vaccine [...] Recently Relevant to Health Maintenance Results * Mammo Diagnostic Digital Tomosynthesis Bilateral [...] cyst cluster without internal vascularity. us Mar Stover HAND CANDY MOLDER IMG MAMMOGRAPHY ORDERABLE S Final Result * LIQUID-BASED PAP SMEAR WITH HPV GENOTYPING REGARDLESS OF INTERPRETATION (ARLENE,COR,MAD) (03/26/2024 12:19 PM EDT) Pathologist [facility] Emergency Department Reference Lab Report [facility] [address] [place] [address] or [phone] Hang James M.D., Screening Representative PATIENT NAME LABORATORY NO. [id number] RADHA [place] [id number] AGE SEX SSN CLIENT REF # [facility] ([facility]ELIDA) 43 1980 F [id number] Kaylyn YOSUIF REQUESTING Veronica. [place] [address] MAR STOVER DATE COLLECTED DATE RECEIVED DATE [...] 51, 52, 56, 58, 59, 66, 68 RADIOTELEGRAPH OPERATOR SERVICER: SLIME NIEVES (ASCP) CPT CODES: 49061, 50111 04/06/2024 8:48 AM EDT [facility] ThinPrep Vial Collection / Unknown 03/26/2024 12:19 PM EDT 03/26/2024 12:19 PM EDT Mar Stover HAND CANDY MOLDER PATHOLOGY/CYTOLOGY ORDERA BLES Final Result [facility]
[address] [place] [address], [place] [phone] from Last 3 Months or Most Recently Relevant to Health Maintenance [facility] Care Teams Trust Officer Relationship Specialty Start Date End Date Chin Guajardo MD [address] [place] CHAVEZ [id number] PCP - General 10/16/15
--- OUTSIDE RECORDS SUMMARY | 2025-05-08 10:41 | XMS_ITS | Data Portability ---
Author Organization [place] - [facility] [place] Address [address] [place] [address] Assessment No assessment recorded. Plan of Treatment Reminders Order Date Submit Date Provider Last Modified By Organization Details Last Modified Time Details Appointments None recorded. Lab urinalysis , dipstick 2023 024 [email or web address] [address], [address], 4 09:41:19 urinalysis , dipstick 2023 024 [email or web address] [address], [address], 4 09:16:03 Referral None recorded. Procedures None [...] (reference range) negati ve Not Available Randall Hurt sophia [address], [address], 11/12/2023 11:13:38 11/12/19 24 11/12/2023 urina lysis , dipst ick Nitrite (reference range:) negati ve Not Available Randall Morales [address], [address], 11/12/2023 11:13:38 11/12/19 24 11/12/2023 urina lysis , dipst ick Urobilinogen (reference range) 0.2 Not Available [address], [address], 11/12/2023 11:13:38 11/12/19 24 11/12/2023 urina lysis , dipst ick Protein (reference range) negati ve Not Available Randall [address], [address], 11/12/2023 11:13:38 11/12/19 24 11/12/2023 urina lysis , dipst ick pH (reference range 5-8.5) 5.5 Not Available [address], [address], 11/12/2023 11:13:38 11/12/19 24 11/12/2023 urina lysis , dipst ick Blood (reference range:) small Not Available [address], [address], 11/12/2023 11:13:38 11/12/19 24 11/12/2023 urina lysis , dipst ick Specific [place] (reference range) 1.010 Not Available [address], [address], 11/12/2023 11:13:38 11/12/19 24 11/12/2023 urina lysis , dipst ick Ketone (reference range) negati ve Not Available [address], [address], 11/12/2023 11:13:38 11/12/19 24 11/12/2023 urina lysis , dipst ick Bilirubin (reference range) negati ve Not Available [address], [address], 11/12/2023 11:13:38 11/12/19 24 11/12/2023 urina lysis , dipst ick Glucose (reference range) negati ve Not Available [address], [address], 11/12/2023 11:13:38 12/26/19 24 12/26/2023 urina lysis , dipst ick Leukocytes (reference range) negati ve Not Available [address], [address], 12/26/2023 12:16:57 12/26/19 24 12/26/2023 urina lysis , dipst ick Nitrite (reference range:) negati ve Not Available [address], [address], 12/26/2023 12:16:57 12/26/19 24 12/26/2023 urina lysis , dipst ick Urobilinogen (reference range) 0.2 Not Available [address], [address], 12/26/2023 12:16:57 12/26/19 24 12/26/2023 urina lysis , dipst ick Protein (reference range) negati ve Not Available [address], [address], 12/26/2023 12:16:57 12/26/19 24 12/26/2023 urina lysis , dipst ick pH (reference range 5-8.5) 6.0 Not Available [address], [address], 12/26/2023 12:16:57 12/26/19 24 12/26/2023 urina lysis , dipst ick Blood (reference range:) hemoly zed: Trace Not Available [address], [address], 12/26/2023 12:16:57 12/26/19 24 12/26/2023 urina lysis , dipst ick Specific [place] (reference range) 1.010 Not Available [address], [address], 12/26/2023 12:16:57 12/26/19 24 12/26/2023 urina lysis , dipst ick Ketone (reference range) negati ve Not Available [address], [address], 12/26/2023 12:16:57 12/26/19 24 12/26/2023 urina lysis , dipst ick Bilirubin (reference range) negati ve Not Available [address], [address], 12/26/2023 12:16:57 12/26/19 24 12/26/2023 urina lysis , dipst ick Glucose (reference range) negati ve Not Available [address], [address], 12/26/2023 12:16:57 11/07/19 24 03/24/2023 CT, abdom en + pelvi s, w/o contr ast No observ ation record ed. [email or web address] [facility] [address], [place], [address], 11/10/2023 12:53:47 Result Notes None recorded. Problems Name Problem SNOMED Code Status Onset Date Resolution Date Notes Provider Name and Address Organization Details Recorded Time Anemia 291239386 Active 024 CAMERON Daigle - ALEENA - [place] & [place] 4 10:34:55 Seasonal allergy 476013216 Active 024 Nevaeh parham, CAMERON FLOOD [facility] & [place] 4 10:35:04 Anxiety 48996996 Active 024 Nevaeh parham, CAMERON Nicole LPNT [facility] & [place] 10:35:13 Problem Notes None recorded. Procedures Surgical History Date Name Laterality Status Provider Name and Address Organization Details Recorded Time 12/26/19 24 Cystoscopy-Female completed Brian Pollard Jr, MD [address] [place] [address], [address], [place], [address], CAMERON FLOOD [facility] & [place] 01/04/2024 19:29:44 [facility] [place] 11/12/2023 10:35:41 extraction of wisdom tooth completed Nevaeh FLOOD [facility] & [place] 11/12/2023 10:35:52 ligation of fallopian tube completed Nevaeh FLOOD [facility] & [place] 11/12/2023 10:36:03 tonsillectomy completed Nevaeh FLOOD [facility] & [place] 11/12/2023 10:36:13 Imaging Results None recorded. Procedure [...] Updated DateTime 11/12/2023 167.64 cm 23.9 kg/m2 52506.67 g 97.2 [degF] Nevaeh Hampton [facility] & [place] 11/12/2023 10:34:40 Date Recorded Body height Body mass index (BMI) Body weight Body temperature Provider Name and Address Organization Details Last Updated DateTime 12/26/2023 167.64 cm 23.9 kg/m2 08441.67 g 97.7 [degF] Hedy Bryan [facility] & [place] 12/26/2023 11:04:14 Social History Question Answer Notes LastModified by Organizat ion Details LastModified Time Tobacco Smoking Status Never Smoker Nevaeh Hampton [facility], [place] - [facility] & [place] 11/12/2023 10:35:30 What Is Your Level Of Caffeine Consumption? Occasional [email or web address] Information not available 11/12/2023 Sex: Unknown Functional Status Question Answer Note LastModified by Organization D etails LastModified Time What is your level of alcohol consumption? None [email or web address] Information not available 11/12/2023 Mental Status None recorded. Family History Relationship Description Onset Age of this Age Resolved Age Notes LastModified by Organization Details LastModified Time Father No current problems or disability [email or web address] Not available 02/2024 10:35:17 Mother No current problems or disability [email or web address] Not available 02/2024 10:35:17 Medical History No medical history recorded. Gynecological HistoryNo gynecological history recorded. Obstetrics History GPAL:G 0 P 0 0 0 0 Past Encounters Encounter ID Performer Location Encounter Start Date Encounter Closed Date Diagnosis/Indication Diagnosis SNOMED-CT Code Diagnosis ICD10 Code Diagnosis IMO Codes Diagnosis Note [id number] Brian Pollard Jr, MD [facility] [address] [address] 11/12/2023 10:16:08 11/12/2023 11:06:44 Microscopic hematuria 075631419 R31.29 43-year-ol d white female referred for [...] case we want to do cystoscopy . [id number] Brian Pollard Jr, MD [facility] [address] [address] 12/26/2023 10:57:14 12/26/2023 12:15:42 Blood in urine 70883682 R31.9 Pt with h/o microhemat uria. CT [...] ID Guarantor Name 01/05/2024 2 [employer] [id number] Kurt [place] [id number] [address] 01/05/[id number] [place] Notes Date Note Type Note [...] stones, flank pain. Brian Pollard Jr, MD [address] [place] [address], [address], [place], [address], [facility] & [place] 11/12/2023 13:08:24 12/26/2023 text/html ROS as noted in the HPI 43 yo WF with microhematuria. She returns today for u/a. It shows trace amount of blood. We discussed proceeding with cystoscopy to rule out any bladder abnormalities. Brian Pollard Jr, MD [address] [place] [address], [address], [place], [address], [facility] & [place] 01/04/2024 19:32:26 OBGyn Episode No OBEpisode recorded.
--- NOTE | 2025-05-08 10:51 | ED_ITS ---
Discharge Plan Disposition Patient Disposition: Home, Self-Care Condition: Good Prescriptions Prescriptions: No Action epinephrine [Auvi-Q] 0.3 mg/0.3 mL auto-injector 0.3 mg IM NEEDED PRN (Reason: Allergic Reaction) ferumoxytol [Feraheme] 510 mg/17 mL (30 mg/mL) solution 510 mg IV Q3D Rx Instructions: administer over at least 15 minutes Referrals Follow up/Referrals: Chin Guajardo MD [Primary Care Provider, Internal Medicine] - See instructions Activity Restrictions/Add. Instructions Additional Instructions/Restrictions: Please follow-up with gastroenterology tomorrow morning. If symptoms worsen, or you are unable to tolerate your own secretions, please return to the emergency department. Clinical Impressions Clinical Impression: Bolus impaction of digestive tract Print Language Print Language: Polish Discharge ED Provider: Abdulkadir Mcpherson General Adult HPI General Chief complaint: Sore Throat Stated complaint: foreign object, food stuck in throat Time Seen by Provider: 05/08/25 10:44 History of Present Illness HPI narrative: This patient is a 45-year-old female with past medical history of prior presents to the emergency department with foreign body sensation of the throat. She reports that last night she was eating chicken when she had a sensation of it becoming stuck in her esophagus. Since then she has not been able to tolerate other food nor liquids. She is able to currently tolerate her own secretions. Patient reports that this same thing happened 3 to 4 months ago, she had an EGD performed the next day but prior to scoping done the food bolus appeared to have passed. She has no significant history of esophagitis, GERD, stricture. She has no other complaints at this time. Related Data Home Medications ?Medication ?Instructions ?Recorded ?Confirmed epinephrine 0.3 mg/0.3 mL 0.3 mg IM NEEDED PRN Omari rgic 10/19/24 03/16/25 injection, auto-injector (Auvi-Q) Reaction Previous Rx's ?Medication ?Instructions ?Recorded ferumoxytol 510 mg/17 mL (30 510 mg (17 mL) IV Q3D 2 d oses 03/01/25 mg/mL) intravenous solution (Feraheme) Allergies Allergy/AdvReac Type Severity Reaction Status Date / Time Alpha-Gal Allergy Severe Anaphylaxis Verified 03/01/25 14:38 (Zzohewycj-Dasuv-2,3-Gala iron (From Venofer) Allergy Intermediate Paleness Verified 03/16/25 16:16 latex (LATEX) Allergy Unknown Unknown Verified 03/01/25 14:38 allergy reaction [facility] Disclaimer: The information contained in this section may have been updated after the patient was seen, as this information can be updated by other users. Medical History Iron (Fe) deficiency anemia Alpha-gal syndrome Surgical History H/O wisdom tooth extraction H/O tubal ligation Delivery by section Social History Smoking Status: Never smoker second hand exposure: No alcohol intake: never substance use type: denies use current occupational status: employed Travel in the last 8 weeks?: None household members: spouse housing: house Have you lived/traveled outside US in past 30 days?: No Contact w/someone who lives/traveled outside US past 30 days?: No Exposure to someone with infectious disease in past 14 days?: No Do you have a fever (greater than 100.4 F or 38 C)?: No Have you tested positive for COVID-19?: No Exposed to someone with COVID-19 in past 14 days?: No Do you have a sore throat?: No Do you have a cough?: No Do you have any weakness?: No Do you have any diarrhea?: No Are you experiencing any unusual bleeding?: No Do you have any muscle aches/pain?: No Do you have any abdominal pain?: No Are you experiencing loss of taste or smell?: No Other Medical History Have you received the Flu Vaccine for this season: Yes Have you received the Pneumonia Vaccine: No ROS Obtained: Yes All systems reviewed & no additional complaints except as documented Physical Exam General General appearance: alert and in no apparent distress Head Head exam: atraumatic and normocephalic Eye Eye exam: Present normal appearance, PERRL and EOMI ENT ENT exam: Present normal exam and normal external ear exam Neck Neck exam: Present normal inspection, full ROM and trachea midline Chest Chest inspection: Present normal inspection and symmetric chest wall rise; Absent tenderness Respiratory Respiratory exam: Absent respiratory distress Cardiovascular Cardiovascular exam: Present regular rate, normal rhythm and other (appears warm and well perfused) Abdominal Exam Abdominal exam: Absent distention or tenderness Extremities Exam Extremities exam: Present normal inspection and full ROM Neurological Exam Neurological exam: Present alert and oriented X3 Psychiatric Psychiatric exam: Present normal affect Skin Skin exam: Present warm and dry Medical Decision Making Medical Records Medical records reviewed: Yes I reviewed the patient's medical records. Screening: Per USPSTF and CDC recommendations, given the prevalence of disease in our region, it is our hospital?s policy to screen for HIV and viral Hepatitis for all patients aged 18 and over and those with ongoing risk factors. Angel Inquiry Pt receiving controlled substance: No Angel was queried for this patient: No Vital Signs: 05/08/25 10:28 05/08/25 10:33 05/08/25 11:25 Temperature 98.6 F Temperature Source Oral Pulse Rate 72 64 Pulse Rate [Left Radial] 75 Respiratory Rate 20 Blood Pressure 151/79 H 137/80 Blood Pressure [Right Arm] 151/79 H Blood Pressure Mean [Right Arm] 103 02 Sat by Pulse Oximetry 100 100 100 Oxygen Delivery Method Room Air Room Air Room Air 05/08/25 11:30 05/08/25 12:00 Temperature Temperature Source Pulse Rate 63 65 Pulse Rate [Left Radial] Respiratory Rate Blood Pressure 120/72 129/60 Blood Pressure [Right Arm] Blood Pressure Mean [Right Arm] 02 Sat by Pulse Oximetry 100 100 Oxygen Delivery Method Room Air Room Air Lab Data Lab results reviewed: Yes I reviewed the patient's lab results. Lab Results 05/08/25 11:24: WBC 5.7, RBC 4.44, Hgb 14.3, Hct 44.8, MCV 100.9 H, MCH 32.2 H, MCHC 31.9, RDW 15.9, Plt Count 141 L, MPV 13.7 H, Neut % (Auto) 66.6, Lymph % (Auto) 24.0, Dillon % (Auto) 7.3, Eos % (Auto) 1.2, Baso % (Auto) 0.7, Neut # (Auto) 3.8, Lymph # (Auto) 1.4, Dillon # (Auto) 0.4, Eos # (Auto) 0.1, Baso # (Auto) 0.0, Sodium 137, Potassium 3.5, Chloride 105, Carbon Dioxide 23, Anion Gap 12.5, BUN 13, Creatinine 0.60, Estimated Creat Clear 138, Estimated GFR 108, Est GFR ( Amer) 130, Glucose 86, Calcium 8.9, Total Bilirubin 1.0, AST 28, ALT 16, Alkaline Phosphatase 86, Total Protein 8.1, Albumin 4.0, Globulin 4.1 H, Albumin/Globulin Ratio 1.0 L 05/08/25 11:24 05/08/25 11:24 Orders (Tests/Meds): ED MEDICATIONS Discontinued Medications Generic Name Dose Route Start Last Admin Trade Name Freq PRN Reason Stop Dose Admin Sodium Chloride 1,000 mls @ 999 mls/hr 05/08/25 10:51 05/08/25 12:34 Sod Chlor 0.9% 1000ml Bag IV 05/08/25 11:51 Infused .Q1H1M ONE Infusion Sodium Chloride 1,000 mls @ 999 mls/hr 05/08/25 12:21 05/08/25 12:30 Sod Chlor 0.9% 1000ml Bag IV 05/08/25 13:21 999 mls/hr .Q1H1M ONE Administration Midazolam HCl 2 mg 05/08/25 10:57 05/08/25 11:21 Midazolam 2mg/2ml Vial IV 05/08/25 10:58 2 mg ONCE ONE Administration ORDERS Category Date Time Status CXR --portable [XR chest portable] Stat Exams 05/08/25 10:52 Completed CBC w/Auto Diff [Complete Blood Count Auto Diff] Stat Lab 05/08/25 11:24 Completed CMP [Comprehensive Metabolic Panel] Stat Lab 05/08/25 11:24 Completed Medical Decision Narrative: MDM In summary, this 45-year-old female presents to the emergency department today with foreign body sensation in the throat. Initial evaluation the patient comfortable and hemodynamically stable. Differential diagnosis includes but is not limited to food bolus, globus sensation, esophageal stricture, esophageal perforation. Based on these concerns, I ordered basic labs, chest x-ray, treatment. Patient received Versed, normal saline for treatment. Labs personally reviewed and interpreted demonstrate no significant leukocytosis, no significant anemia, no major metabolic abnormalities. X-rays personally interpreted by me demonstrate normal cardiopulmonary silhouette, no concerning finding. I had interactive discussion with the gastroenterology attending on-call. He remembers the patient's case from her last endoscopy. After the scope he felt it was very likely the patient had been suffering primarily from globus sensation, however the patient's total inability to tolerate oral intake during this emergency department stay is concerning for true foreign body. The patient's is able to tolerate own secretions and so we do not feel she needs admission for emergent endoscopy. The plan was put in place to hydrate the patient well with normal saline, attempt final swallow challenge, and then discharge to home with plans for endoscopy in the morning. On reassessment the patient continued to be able to tolerate her own secretions and so we felt comfortable with discharge. Critical Care Critical Care Time Critical Care Time: No
--- NOTE | 2025-05-08 10:52 | XR_ITS ---
PROCEDURE INFORMATION: Exam: XR Chest Exam date and time: 05/08/2025 11:06 AM Age: 45 years old Clinical indication: Other: Pre-op, food bolus TECHNIQUE: Imaging protocol: Radiologic exam of the chest. Views: 1 view. COMPARISON: CR XR CHEST PORTABLE 03/18/2023 10:01 PM FINDINGS: Lungs: Unremarkable. No consolidation. Pleural spaces: Unremarkable. No pleural effusion. No pneumothorax. Heart/Mediastinum: Unremarkable. No cardiomegaly. Bones/joints: Unremarkable. IMPRESSION: No acute findings.
[2025-05-08] MEDS: 0.9 % SODIUM CHLORIDE 1000ML 1,000 ML 999 ML IV ×2 (11:20→12:30)
[2025-05-08] MEDS: MIDAZOLAM 2MG/2ML VIAL 2 MG IV (11:21)
[2025-05-08 11:25] VITALS: BP 137/80; PULSE 64; O2SAT 100
[2025-05-08 11:30] VITALS: BP 120/72; PULSE 63; O2SAT 100
[2025-05-08 11:47] LABS: Hematocrit 44.8 % (37.0-47.0); Hemoglobin 14.3 g/dL (12.2-16.2); Immature Granulocytes % 0.2 %; Mean Corpuscular HGB Conc 31.9 g/dL (31.8-35.4); Mean Corpuscular Hemoglobin 32.2 pg (27.0-31.2); Mean Corpuscular Volume 100.9 fl (81-99); Nucleated Red Blood Cells % 0 %; Platelet Count 141 K/mm3 (142-424); Red Blood Count 4.44 M/mm3 (4.20-5.40); Red Cell Distribution Width-SD 59.1 fL; White Blood Count 5.7 K/mm3 (4.8-10.8)
[2025-05-08 12:00] VITALS: BP 129/60; PULSE 65; O2SAT 100
[2025-05-08 12:13] LABS: Alanine Aminotransferase 16 U/L (12-78); Albumin Level 4.0 g/dl (3.5-5.0); Albumin/Globulin Ratio 1.0 (1.1-1.8); Alkaline Phosphatase 86 U/L (38-126); Anion Gap 12.5 mEq/L (5-15); Aspartate Amino Transferase 28 U/L (14-36); Bilirubin,Total 1.0 mg/dl (0.2-1.3); Blood Urea Nitrogen 13 mg/dl (7-17); Calcium 8.9 mg/dl (8.4-10.2); Carbon Dioxide 23 mmol/L (22.0-30.0); Chloride 105 mmol/L (98-107); Creatinine Clearance Estimated 138 mL/min (50-200); Creatinine,Serum 0.60 mg/dl (0.52-1.04); Estimated Glomerular Filt Rate 108 ml/min (>60); GFR (African American) 130 ML/MIN (>60); Globulin 4.1 g/dL (1.3-3.2); Glucose 86 mg/dl (74-100); Potassium 3.5 mmoL/L (3.5-5.1); Sodium 137 mmol/L (136-145); Total Protein,Serum 8.1 g/dl (6.3-8.2)
--- NOTE | 2025-05-08 12:15 | PC.NURSE ---
Dr. Mcpherson speaking with Dr. Farris.
[2025-05-08 13:33] VITALS: BP 123/72; PULSE 69; RESP 20; TEMP 36.7; O2SAT 98
== END 2025-05-08 13:36 | disposition home or self-care (01) ==
PROVIDERS: Emergency Provider Student in an Organized Health Care Education/Training Program; PCP Internal Medicine Adolescent Medicine
DX: T18.128A Food in esophagus causing other injury, initial encounter (principal)
CPT/HCPCS: 71045; 80053; 85025; 96361; 96374; 99284; J2250; J7030

== ENCOUNTER 2025-05-09 09:12 | Day surgery (SDC) | payer OTHER, BC, SELFPAY ==
[2025-05-09 09:24] VITALS: BMI 29.2
[2025-05-09 09:28] VITALS: BP 127/78; PULSE 65; RESP 18; TEMP 36.6; O2SAT 99
[2025-05-09] MEDS: 0.9 % SODIUM CHLORIDE 1000ML 1,000 ML 25 ML IV (09:34)
[2025-05-09 09:35] LABS: Urine Pregnancy, HCG Qual. Negative (Negative)
--- NOTE | 2025-05-09 09:47 | P.PNANES_ITS ---
[facility] Disclaimer: The information contained in this section may have been updated after the patient was seen, as this information can be updated by other users. Medical History Iron (Fe) deficiency anemia Alpha-gal syndrome Surgical History H/O wisdom tooth extraction H/O tubal ligation Delivery by section Family History (Updated 05/09/25 @ 09:27 by Lima Thomas) Other No significant family history Social History Smoking Status: Never smoker second hand exposure: No alcohol intake: never substance use type: denies use current occupational status: employed Travel in the last 8 weeks?: None household members: spouse housing: house Have you lived/traveled outside US in past 30 days?: No Contact w/someone who lives/traveled outside US past 30 days?: No Exposure to someone with infectious disease in past 14 days?: No Do you have a fever (greater than 100.4 F or 38 C)?: No Have you tested positive for COVID-19?: No Exposed to someone with COVID-19 in past 14 days?: No Do you have a sore throat?: No Do you have a cough?: No Do you have any weakness?: No Do you have any diarrhea?: No Are you experiencing any unusual bleeding?: No Do you have any muscle aches/pain?: No Do you have any abdominal pain?: No Are you experiencing loss of taste or smell?: No [facility] Anesthesia Checklist Patient Identification Patient Identification: Arm Band and Verbal (Name & ) Structural Data Admitted From: Home Planned Operative Procedure/s: EGD Consent for Planned Operative Procedure(s) Verified: Yes Verified Documents: Surgical Consent NPO Status Verified Time NPO: 00:00 Additional verifications Anesthesia Reactions: No Airway Assessment Mallampati Score:: Class II C-Spine Mobility Assessed: Yes TMJ Mobility Assessed: Yes Dentition: Good Dentition Neurological Assessment Level of Consciousness: Awake, Alert and Appropriate Hx Seizures: No Numbness or tingling in extremities: No Anesthesia Plan Anesthesia Risk discussed: Yes Anesthesia Plan: Verified ASA Class: II Anesthesia Type: MAC
--- NOTE | 2025-05-09 10:28 | EXP.HP ---
History of Present Illness *Admission Date: 05/09/25 *History of present illness: Mrs. Rockwell is a 45-year-old female who is here for dysphagia/food impaction. The examination is deemed medically necessary for diagnostic EGD. The patient has been seen, interviewed and examined prior to the procedure by both myself and the anesthesia provider. [facility] Disclaimer: The information contained in this section may have been updated after the patient was seen, as this information can be updated by other users. Medical History Iron (Fe) deficiency anemia Alpha-gal syndrome Surgical History H/O wisdom tooth extraction H/O tubal ligation Delivery by section Family History (Updated 05/09/25 @ 09:27 by Lima Thomas) Other No significant family history Social History Smoking Status: Never smoker second hand exposure: No alcohol intake: never substance use type: denies use current occupational status: employed Travel in the last 8 weeks?: None household members: spouse housing: house Have you lived/traveled outside US in past 30 days?: No Contact w/someone who lives/traveled outside US past 30 days?: No Exposure to someone with infectious disease in past 14 days?: No Do you have a fever (greater than 100.4 F or 38 C)?: No Have you tested positive for COVID-19?: No Exposed to someone with COVID-19 in past 14 days?: No Do you have a sore throat?: No Do you have a cough?: No Do you have any weakness?: No Do you have any diarrhea?: No Are you experiencing any unusual bleeding?: No Do you have any muscle aches/pain?: No Do you have any abdominal pain?: No Are you experiencing loss of taste or smell?: No Other Medical History Have you received the Flu Vaccine for this season: Yes Have you received the Pneumonia Vaccine: No Review of Systems Review of Systems Review of systems (narrative): Negative *Cardiovascular Comments: Negative *Gastrointestinal Comments: Negative *Genitourinary Comments: Negative *Musculoskeletal Comments: Negative *Neurologic Comments: Negative Meds Home Medications and Allergies Home Medications ?Medication ?Instructions ?Recorded ?Confirmed ?Type epinephrine 0.3 mg/0.3 mL 0.3 mg IM NEEDED PRN Allergic 10/19/24 05/09/25 History injection, auto-injector (Auvi-Q) Reaction ferumoxytol 510 mg/17 mL (30 510 mg (17 mL) IV Q3D 2 doses 03/01/25 05/09/25 Rx mg/mL) intravenous solution (Feraheme) New Prescriptions to Start Prescriptions: Allergies Allergy/AdvReac Type Severity Reaction Status Date / Time Alpha-Gal Allergy Severe Anaphylaxis Verified 05/09/25 09:27 (Aqzkrvnkj-Kgwqt-6,3-Gala iron (From Venofer) Allergy Intermediate Paleness Verified 05/09/25 09:27 latex (LATEX) Allergy Unknown Unknown Verified 05/09/25 09:27 allergy reaction Exam Data for Last 24 hours Vital signs and Labs for Last 24 Hours: Temp Pulse Resp BP Pulse Ox O2 Del Method 98 F 65 18 127/78 99 Room Air 05/09/25 09:28 05/09/25 09:28 05/09/25 09:28 05/09/25 09:28 05/09/25 09:28 05/09/25 09:28 Laboratory Results - last 24 hr 05/09/25 09:18: Urine HCG, Qual Negative I & O for Last 24 hours: Intake & Output 05/06/25 05/07/25 05/08/25 05/09/25 23:59 23:59 22:59 23:59 Weight 160 lb *Routine HEENT Exam Head: Present normocephalic Eye: Present EOMI and PERRL ENT: Present mucous membranes moist *Routine Neck Exam Neck: Present supple *Routine Respiratory Exam Respiratory: Present CTA bilaterally *Routine Cardiovascular Exam Cardiovascular: Present RRR *Routine Abdominal Exam Abdominal: Present soft and normoactive bowel sounds; Absent tenderness *Routine Rectal Exam Rectal:: deferred *Routine Genitalia Exam Genitalia:: deferred *Routine Extremities Exam Extremities: Absent cyanosis, clubbing or edema *Routine Skin Exam Skin: Present warm; Absent rash *Routine Neurological Exam Neurological: Present alert and oriented X3 Assessment and Plan *Assessment and plan (1) Food impaction of esophagus: Status: Acute Category: Medical Code(s): T18.128A - Food in esophagus causing other injury, initial encounter; W44.F3XA - Food entering into or through a natural orifice, initial encounter (2) Dysphagia: Status: Acute Category: Medical Code(s): R13.10 - Dysphagia, unspecified Plan A/P: 1. Dysphagia/food impaction is the preprocedural diagnosis. The patient will be anesthetized/sedated using MAC sedation. The patient has been seen and examined. Cardiac and lung assessment prior to the examination is stable. Proceed with planned diagnostic EGD.
--- NOTE | 2025-05-09 10:37 | HMH.PROCNOTE ---
[facility] Procedure Note Date: 05/09/25 Time: 10:50 Procedure Note:: Upper Endoscopy Procedure Report: Esophagogastroduodenoscopy with cold biopsies and TTS balloon dilation Endoscopost: Sadi Farris II, MD Referring Physician: Chin Guajardo M.D. Date of Procedure: May 09, 2025 Equipment: Olympus GIF-1100 standard upper endoscope Sedation: MAC sedation Indications: Mrs. Rockwell is a 45-year-old female who reports eating chicken on Friday and the last bite resulted in a food bolus impaction. She was still able to drink some water and fluids but after drinking a glass of water this did eventually come back up with regurgitation. She has been afraid to swallow solid foods. She did go to the ED yesterday. She did have a foreign body sensation in her mid retrosternal region but was able to tolerate her own secretions. She was sent home with discussion of having outpatient endoscopy. The patient did have an EGD with me in July 2024 because of a Sumler episode where food was hanging in the retrohyoid throat region and this examination was normal. The patient reports no belching or reflux. She does have alpha gal. Procedure: Prior to the procedure, a history and physical exam was performed, and patient's medications and allergies were reviewed. The risks, benefits and alternatives of the sedation and procedure were discussed with the patient. All questions were answered and informed consent was obtained. The patient was brought to the procedure room. Patient identification and proposed procedure were verified by the physician and the nurse. The patient was placed in a left lateral decubitus position and the scope was passed under direct vision. Throughout the procedure, the patient's blood pressure, pulse, and oxygen saturations were monitored continuously. The upper GI endoscopy was accomplished without difficulty. The patient tolerated the procedure well. Findings: The scope was passed directly into the upper esophagus and advanced to the third portion of the duodenum. The post bulbar duodenum and duodenal bulb were normal with normal mucosa and conniventes. 2 cold biopsies were taken from the second portion of the duodenum for the disaccharidase assay. The scope was withdrawn through a normal duodenal bulb and pylorus into the stomach. There was very minimal antral gastropathy. Cold biopsies were taken from the antrum. The body and fundus of the stomach were grossly normal. Upon retroflexion there was a very small sliding 1 to 2 cm hiatal hernia. The scope was then withdrawn into the esophagus. There was no reflux esophagitis and no rings, corrugation, strictures or webs. There was no inlet patch. There was no meat bolus in the esophagus. There were tertiary contractions and evidence of mild to moderate esophageal dysmotility. The entire esophagus was dilated to 60 Albanian/20 mm with a TTS hydrostatic balloon. There was mild resistance at the cricopharyngeus. The remainder of the esophageal mucosa was normal. Impression: 1. Mild to moderate esophageal dysmotility with cricopharyngeal spasm and very small sliding hiatal hernia 2. Mild linear antral gastropathy Plan: I will discuss the findings with the patient and family. The patient does have some esophageal dysmotility which is when your esophagus does not move food and liquid to your stomach properly and has to do with esophageal muscular movements and peristalsis. This can sometimes result in the sensation of a foreign body. I do feel that some of this is the result of gas driven bile reflux. I will discuss with the patient and family. I will follow-up the biopsies and disaccharidase assay.
[2025-05-09 10:51] VITALS: BP 129/74; PULSE 65; RESP 16; TEMP 36.3; O2SAT 99
[2025-05-09 11:01] VITALS: BP 117/76; PULSE 57; RESP 17; TEMP 36.3; O2SAT 99
[2025-05-09 11:11] VITALS: BP 120/70; PULSE 66; RESP 17; TEMP 36.3; O2SAT 99
[2025-05-09 11:21] VITALS: BP 108/85; PULSE 55; RESP 17; TEMP 36.3; O2SAT 100
--- NOTE | 2025-05-09 12:04 | XR_ITS ---
FINAL REPORT CLINICAL HISTORY: Assessment of fecal burden FINDINGS: A single supine view of the abdomen was obtained. There is no prior for comparison. The bowel gas pattern is normal. There is a normal amount of stool in the colon. There are no pathologic calcifications. Osseous structures are within normal limits. IMPRESSION: No acute intraabdominal abnormality. Normal stool. Reviewed, Interpreted and Dictated by Marylu Karimi MD Transcribed by Sandy Wall Authenticated and [facility]
[2025-05-12 15:46] LABS: Interpretation Notes (.); Lactase 14.43 (>/= 14.0); Maltase 109.29 (>/= 110.0); Palatinase 5.67 (>/= 8.5); Reference Notes (.); Sucrase 23.71 (>/= 25.0)
== END 2025-05-09 12:40 | disposition home or self-care (01) ==
PROVIDERS: PCP Internal Medicine Adolescent Medicine; Visit Provider Internal Medicine Gastroenterology
PROC: 0DJ08ZZ Inspection of Upper Intestinal Tract, Via Natural or Artificial Opening Endoscopic (ICD-10-PCS; CPT 43239; principal; 2025-05-09 14:00)
DX: K22.4 Dyskinesia of esophagus (principal); K44.9 Diaphragmatic hernia without obstruction or gangrene; K31.89 Other diseases of stomach and duodenum; D50.9 Iron deficiency anemia, unspecified; T18.128A Food in esophagus causing other injury, initial encounter; Z91.014 Allergy to mammalian meats; W44.F3XA Food entering into or through a natural orifice, initial encounter
CPT/HCPCS: 43239; 43249; 74018; 81025; 82657; C1726; J1200; J2250; J3010; J7030

== ENCOUNTER 2025-05-11 14:18 | Outpatient (CLI) | payer OTHER, BC, SELFPAY ==
--- OUTSIDE RECORDS SUMMARY | 2025-05-11 14:21 | XMS_ITS | Clinical Summary ---
Author Organization Healthcare Address [address] [place] [address] Care Team Providers Care Ethnology Teacher Name Role Phone Chin Guajardo MD Primary Care Provider [phone] Encounters Date Type Department Care Team Description 04/28/2025 Community [facility] [address] [place] [address] Chin Guajardo MD Allergy to alpha-gal (Primary [...] 2024 Sigmoidoscopy 2024 [facility]-Colorectal Cancer Screening 2024 UKV-IPFRF-03 Vaccine ( season) 2025 04/17/2021, 03/21/2021 [facility]-Influenza [...] patient's age to complete this topic Insurance [facility] Care Teams Ethnology Teacher Relationship Specialty Start Date End Date Chin Guajardo MD [address] [place] [address] PCP - General Internal Medicine 10/14/22
--- OUTSIDE RECORDS SUMMARY | 2025-05-11 14:21 | XMS_ITS | Clinical Summary ---
[facility] Address [address] [place] [address] Care Team Providers Care Info Specialist Name Role Phone Chin Guajardo MD Primary Care Provider [phone] Allergies Active Allergy Reactions Criticality Noted Date [...] cluster without internal vascularity. us Mar Stover PHYSICAL SECURITY SPECIALIST IMG MAMMOGRAPHY ORDERABLE S Final Result * LIQUID-BASED PAP SMEAR WITH HPV GENOTYPING REGARDLESS OF INTERPRETATION (ARLENE,COR,MAD) (03/26/2024 12:19 PM EDT) Pathologist [facility] Reference Lab Report [facility] [address] [place] [address] or [phone] Hang James M.D., Seismic Plotter PATIENT NAME LABORATORY NO[facility] [address] RADHA ROCKWELL [id number] AGE SEX SSN CLIENT REF # [facility] ([facility]) 43 1980 F [id number] Kaylyn YOUSIF REQUESTING Veronica. [place]ING [place] [address] MAR STOVER DATE COLLECTED DATE RECEIVED DATE [...] 51, 52, 56, 58, 59, 66, 68 DIRECTOR OF DIGITAL MARKETING: SLIME NIEVES (ASCP) CPT CODES: [id number], [id number] 04/06/2024 8:48 AM EDT [facility] ThinPrep Vial Collection / Unknown 03/26/2024 12:19 PM EDT 03/26/2024 12:19 PM EDT Mar Stover PHYSICAL SECURITY SPECIALIST PATHOLOGY/CYTOLOGY ORDERA BLES Final Result [facility]
[address] [place] [address], [place] [phone] from Last 3 Months or Most Recently Relevant to Health Maintenance Insurance [facility] Care Teams Info Specialist Relationship Specialty Start Date End Date Chin Guajardo MD [address] [place] [id number] PCP - General 10/16/15
--- OUTSIDE RECORDS SUMMARY | 2025-05-11 14:21 | XMS_ITS | Encounter Summary ---
Author Organization [facility] Address [address] [place] [address] Care Team Providers Care Industrial Education Teacher Name Role Phone Chin Guajardo MD Primary Care Provider [phone] Reason for Referral * Consultation (Routine) - Authorized Specialty Diagnoses / Procedures Referred By Contac t Referred To Contact Allergy and Immunology / Allergy Diagnoses Allergy to alpha-gal Chin Guajardo MD [address] [place] [phone] Phone: tel: fax: [facility] [address] [facility], [address] [place] [address] Phone: tel: fax: Referral ID Status Reason Start Date Expiration Date Visits Requested Visits Authorized [id number] Authorized Specialty Services Required 10/28/2026 1 1 Encounter Details Date Type Department Care Team (Late st Contact Info) Description 04/28/2025 Community [facility] Community Practice [address] [place] [address] Chin Guajardo MD [address] [place] [address] Allergy to alpha-gal (Primary Dx) Social History [...] Primary documented in this encounter Care Teams Industrial Education Teacher Relationship Specialty Start Date End Date Chin Guajardo MD [address] [place] [address] PCP - General Internal Medicine 10/14/22 documented as of this encounter
--- OUTSIDE RECORDS SUMMARY | 2025-05-11 14:21 | XMS_ITS | Encounter Summary ---
[facility] Address [address] [place] [id number] Care Team Providers Care Order Clerk Name Role Phone Chin Guajardo MD Primary Care Provider [phone] Encounter Details Date Type Department Care Team (Late st Contact Info) Description 02/03/2025 Results Follow-Up [facility] O[facility]YN [address] [place] [address] Mar Verdin, COMPUTER HELP DESK REPRESENTATIVE [address] [facility] [address] [place] [address] Social History Tobacco Use Types Packs/Day Years [...] on filedocumented in this encounter Care Teams Order Clerk Relationship Specialty Start Date End Date Chin Guajardo MD [address] [facility] [address] [place] [address] PCP - General 10/16/15 documented as of this encounter
[2025-05-11 15:23] LABS: Hematocrit 41.9 % (37.0-47.0); Hemoglobin 13.3 g/dL (12.2-16.2); Immature Granulocytes % 0.2 %; Mean Corpuscular HGB Conc 31.7 g/dL (31.8-35.4); Mean Corpuscular Hemoglobin 31.9 pg (27.0-31.2); Mean Corpuscular Volume 100.5 fl (81-99); Nucleated Red Blood Cells % 0 %; Platelet Count 174 K/mm3 (142-424); Red Blood Count 4.17 M/mm3 (4.20-5.40); Red Cell Distribution Width-SD 58.3 fL; White Blood Count 6.7 K/mm3 (4.8-10.8)
[2025-05-11 15:42] LABS: Iron 70 ug/dL (37-170)
[2025-05-11 15:53] LABS: Total Iron Binding Capacity 315 ug/dL (265-497)
[2025-05-11 16:22] LABS: Ferritin 35.6 ng/ml (6.24-137)
== END 2025-05-11 23:59 | disposition home or self-care (01) ==
LOC: LAB 14:18
PROVIDERS: PCP Internal Medicine Adolescent Medicine; Visit Provider Internal Medicine Medical Oncology
DX: D50.0 Iron deficiency anemia secondary to blood loss (chronic) (principal)
CPT/HCPCS: 36415; 82728; 83540; 83550; 85025

== ENCOUNTER 2025-06-14 15:22 | Outpatient (CLI) | payer OTHER, BC, SELFPAY ==
[2025-06-14 16:27] LABS: Alanine Aminotransferase 13 U/L (12-78); Albumin Level 4.5 g/dl (3.5-5.0); Albumin/Globulin Ratio 1.4 (1.1-1.8); Alkaline Phosphatase 72 U/L (38-126); Anion Gap 14.7 mEq/L (5-15); Aspartate Amino Transferase 25 U/L (14-36); Bilirubin,Total 0.4 mg/dl (0.2-1.3); Blood Urea Nitrogen 16 mg/dl (7-17); Calcium 9.3 mg/dl (8.4-10.2); Carbon Dioxide 27 mmol/L (22.0-30.0); Chloride 101 mmol/L (98-107); Creatinine,Serum 0.70 mg/dl (0.52-1.04); Estimated Glomerular Filt Rate 90 ml/min (>60); GFR (African American) 109 ML/MIN (>60); Globulin 3.2 g/dL (1.3-3.2); Glucose 88 mg/dl (74-100); Potassium 4.7 mmoL/L (3.5-5.1); Sodium 138 mmol/L (136-145); Total Protein,Serum 7.7 g/dl (6.3-8.2)
[2025-06-14 16:46] LABS: Free T4 (Free Thyroxine) 1.14 ng/dl (0.78-2.19)
[2025-06-14 16:59] LABS: Thyroid Stimulating Hormone 1.21 uIU/mL (0.465-4.68)
[2025-06-14 17:50] LABS: Hematocrit 41.0 % (37.0-47.0); Hemoglobin 13.8 g/dL (12.2-16.2); Immature Granulocytes % 0.3 %; Mean Corpuscular HGB Conc 33.7 g/dL (31.8-35.4); Mean Corpuscular Hemoglobin 33.9 pg (27.0-31.2); Mean Corpuscular Volume 100.7 fl (81-99); Nucleated Red Blood Cells % 0 %; Platelet Count 163 K/mm3 (142-424); Red Blood Count 4.07 M/mm3 (4.20-5.40); Red Cell Distribution Width-SD 49.1 fL; White Blood Count 7.5 K/mm3 (4.8-10.8)
== END 2025-06-14 23:59 | disposition home or self-care (01) ==
LOC: LAB 15:23
PROVIDERS: PCP Internal Medicine Adolescent Medicine; Visit Provider Allergy & Immunology
DX: T78.19XA Other adverse food reactions, not elsewhere classified, initial encounter (principal)
CPT/HCPCS: 36415; 80053; 82785; 83520; 84439; 84443; 85025; 85651; 86008; 86376; 86800

== ENCOUNTER 2025-06-23 15:07 | Outpatient (CLI) | payer OTHER, BC, SELFPAY ==
--- OUTSIDE RECORDS SUMMARY | 2025-06-23 15:10 | XMS_ITS | Clinical Summary ---
Author Organization Healthcare Address [address] [place] [address] Care Team Providers Care Career Development Coordinator Name Role Phone Chin Guajardo MD Primary Care Provider [phone] Encounters Date Type Department Care Team Description 04/28/2025 Community [facility] [address] [place] [address] Chin Guajardo MD Allergy to alpha-gal (Primary [...] of 3 - 19+ 3-dose series) 1998 [facility]Y-HPV/Cotest 2009 CT Colonography 2024 Colonoscopy 2024 FIT-DNA 2024 FIT 2024 FOBT 2024 Sigmoidoscopy 2024 [facility]-Colorectal Cancer Screening 2024 KGV-VELXH-18 Vaccine ( season) 2025 04/17/2021, 03/21/2021 [facility]-Influenza Vaccine (#1) 2025 [facility]-Cervical Cancer Screening 03/26/2027 [facility]-Pap Smear 03/26/2027 03/26/2024 [facility]-Zoster Vaccines (1 of 2) 2029 [facility]-Hepatitis A Vaccines Aged Out 019, 07/01/2018 No longer eligible based on patient's age to complete this topic HPV Vaccines (No Doses Required) Completed [facility]-HIB Vaccines Aged Out No longer e [...] patient's age to complete this topic Insurance [facility] Care Teams Career Development Coordinator Relationship Specialty Start Date End Date Chin Guajardo MD [address] [place] [address] PCP - General Internal Medicine 10/14/22
--- OUTSIDE RECORDS SUMMARY | 2025-06-23 15:10 | XMS_ITS | Encounter Summary ---
Author Organization [facility] Address [address] [place] [address] Care Team Providers Care Incoming Inspector Name Role Phone Chin Guajardo MD Primary Care Provider [phone] Reason for Referral * Consultation (Routine) - Authorized Specialty Diagnoses / Procedures Referred By Contac t Referred To Contact Allergy and Immunology / Allergy Diagnoses Allergy to alpha-gal Chin Guajardo MD [address] [place] [address] Phone: tel: fax: [facility] [address] [facility], [address] [place] [address] Phone: tel: fax: Referral ID Status Reason Start Date Expiration Date Visits Requested Visits Authorized [id number] Authorized Specialty Services Required 10/28/2026 1 1 Encounter Details Date Type Department Care Team (Late st Contact Info) Description 04/28/2025 Community [facility] Community Practice [address] [place] [address] Chin Guajardo MD [address] [place] [id number] Allergy to alpha-gal (Primary Dx) Social History [...] Primary documented in this encounter Care Teams Incoming Inspector Relationship Specialty Start Date End Date Chin Guajardo MD [address] [place] [address] PCP - General Internal Medicine 10/14/22 documented as of this encounter
--- OUTSIDE RECORDS SUMMARY | 2025-06-23 15:10 | XMS_ITS | Encounter Summary ---
[facility] Organization [facility] Address [address] [place] [id number] Care Team Providers Care Independent Sales Representative Name Role Phone Chin Guajardo MD Primary Care Provider [phone] Encounter Details Date Type Department Care Team (Late st Contact Info) Description 02/03/2025 Results Follow-Up [facility] OBGYN [address] [place] [address] Mar Verdin, SPORTS AGENT [address] [facility] [address] [place] [address] Social History Tobacco Use Types Packs/Day Years [...] on filedocumented in this encounter Care Teams Independent Sales Representative Relationship Specialty Start Date End Date Chin Guajardo MD [address] [facility] [address] [place] [address] PCP - General 10/16/15 documented as of this encounter
--- OUTSIDE RECORDS SUMMARY | 2025-06-23 15:10 | XMS_ITS | Clinical Summary ---
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 us Mar Stover BIOMEDICAL ENGINEERING INTERNSHIP IMG MAMMOGRAPHY ORDERABLE S Final Result * LIQUID-BASED PAP SMEAR WITH HPV GENOTYPING REGARDLESS OF INTERPRETATION (ARLENE,COR,MAD) (03/26/2024 12:19 PM EDT) Pathologist [facility] Reference Lab Report [facility] [address] [place] [address] or [phone] Hang James M.D., Director Of Collections And Archives PATIENT NAME LABORATORY [address]. [address] RAD[address] [id number] AGE SEX SSN CLIENT REF # [facility] ([place]) 43 1980 F [id number] Kaylyn YOUSIF REQUESTING Veronica. ATTENDING [place] [address] MAR STOVER DATE COLLECTED DATE RECEIVED DATE [...] 51, 52, 56, 58, 59, 66, 68 [employer] TR[employer] DRIVER: SLIME NIEVES (ASCP) CPT CODES: [id number], [id number] 04/06/2024 8:48 AM EDT [facility] ThinPrep Vial Collection / Unknown 03/26/2024 12:19 PM EDT 03/26/2024 12:19 PM EDT Mar Stover BIOMEDICAL ENGINEERING INTERNSHIP PATHOLOGY/CYTOLOGY ORDERA BLES Final Result [facility]
[address] [place] [address], [place] [phone] from Last 3 Months or Most Recently Relevant to Health Maintenance [facility] Care Teams Padding Gluer Relationship Specialty Start Date End Date Chin Guajardo MD [address] [place] [address] PCP - General 10/16/15
[2025-06-23 15:20] LABS: Microscopic, Urine URINE MICROSCOPIC (MICROSCOPIC)
[2025-06-23 16:21] LABS: Bilirubin,Urine Negative (Negative); Color,Urine RED (Yellow); Glucose,Urine (UA) Negative (Negative); Ketones,Urine Negative (Negative); Leukocyte Esterase,Urine Negative (Negative); PH,Urine 6.0 (5.0-8.5); Protein,Urine 1+ (Negative); Specific Gravity, Urine >= 1.030 (1.005-1.030); Urobilinogen,Urine 0.2 EU/dl (0.2)
[2025-06-23 20:22] LABS: Bacteria,Urine 2+ /lpf; Mucus,Urine 1+ /lpf; RBC,Urine TNTC #/hpf (0-3)
== END 2025-06-23 23:59 | disposition home or self-care (01) ==
LOC: LAB 15:08
PROVIDERS: PCP Internal Medicine Adolescent Medicine
DX: R35.0 Frequency of micturition (principal)
CPT/HCPCS: 81001; 87077; 87086